=== PATIENT | male | born 1945 | race Caucasian/White ===

== ENCOUNTER 2016-08-17 14:19 | Emergency (ER) | payer OTHER ==
[~2016-08-17] VITALS: Ht 170.2 cm; Wt 64.9 kg
[~2016-08-17 14:19] MED LIST: ADVIN25/60 INH; ALBU1AER9 INH; AMOX500C3 PO; ASPI81TA28 PO; EPP3/2 IM; LOSA100T65 PO
[2016-08-17 14:31] VITALS: TEMP 36.8; Ht 170.2 cm; Wt 64.9 kg
[2016-08-17] MEDS ORDERED: SODIUM CHLORIDE 0.9% 1000ML 500 ML IV STA (14:40)
--- NOTE | 2016-08-17 14:48 | EMERGENCY ROOM VISIT NOTE ---
History Report prepared by Chrystal: Suzanna Stearns Under the Supervision of: Dr. José Lin M.D. First contact with patient: 14:35 Chief Complaint: COUGH Stated Complaint: UPPER RIGHT CHEST PAIN,COUGHING UP BLOOD Nursing Triage Summary: pt c/o productive cough for a couple weaks, today noticed there was a streak of blood in it. Took Doxy and Prenisone beginning 07/24/16 for Pneumonia. Pain in right side of chest, when he coughs or bends over, that began yesterday. History of Present Illness The patient is a 71 year old male who presents to the Emergency Room with complaints of a persistent productive cough that began one month ago. He currently rates his discomfort as a 9/10 in severity. The patient notes that he has noticed hemoptysis today. Per records, the patient was placed on 10 days of Doxycycline and 5 days of Prednisone on 08/08. The patient states that he has been to his PCP three times for his symptoms. He states that he has had right sided chest pain with his cough. The patient additionally associates shortness of breath. He denies any fever. The patient denies any current antibiotic usage. He notes a history of COPD, noting that he has inhalers at home. The patient denies any history of blood clots. He denies using supplemental oxygen at home. Source of History: patient Onset: one month ago Position: other (global) Symptom Intensity: 9/10 Quality: other (cough) Timing: other (persistent) Associated Symptoms: + SOB, + chest pain, No fevers Review of Systems See HPI for pertinent positives & negatives. A total of 10 systems reviewed and were otherwise negative. Past Medical & Surgical Medical Problems: (1) Bronchitis (2) COPD (chronic obstructive pulmonary disease) (3) HTN (hypertension) (4) Hyperlipidemia Surgical Problems: (1) Hx of cholecystectomy Family History FHx: gallbladder disease Social History Smoking Status: Current Every Day Smoker Alcohol Use: none Drug Use: none Marital Status: Occupation Status: retired Current/Historical Medications Scheduled Albuterol Hfa (Ventolin Hfa), 2-4 PUFFS INH Q6H Aspirin (Aspirin), 1 TAB PO DAILY Epinephrine (Epipen), 0.3 MG IM UD Fluticasone Propionate (Nasal) (Flonase Allergy Relief), 2 SPRAYS RUDY DAILY Hydrochlorothiazide (Hydrochlorothiazide), 1 TAB PO DAILY Levofloxacin (Levaquin), 750 MG PO QD@16 Losartan Potassium (Cozaar), 100 MG PO DAILY Tiotropium [place] (Spiriva Handihaler), 1 CAP INH DAILY Scheduled PRN Meloxicam (Meloxicam), 1 TAB PO DAILY PRN for Pain Allergies Coded Allergies: Cefuroxime (Verified Allergy, Intermediate, rash, 08/17/16) BEE STING (Verified Allergy, Unknown, ANAPHYLAXIS, 08/17/16) Physical Exam Vital Signs Date Time Temp Pulse Resp B/P Pulse Ox O2 Delivery O2 Flow Rate FiO2 08/17/16 17:43 100 20 135/82 92 08/17/16 16:37 97 16 133/90 93 Room Air 08/17/16 15:46 98 08/17/16 15:27 100 18 117/81 92 Room Air 08/17/16 15:22 92 Room Air 08/17/16 14:31 36.8 113 18 122/70 93 Room Air 08/17/16 14:31 93 Room Air Physical Exam GENERAL: Patient is in no acute distress. HEENT: No acute trauma, normocephalic atraumatic, mucous membranes moist, no nasal congestion, no scleral icterus. NECK: No stridor, no adenopathy, no meningismus, trachea is midline. LUNG: Decreased breath sounds bilaterally, but equal, no respiratory distress, no wheezes or rhonchi. HEART: Tachycardic with a regular rhythm, no murmurs. ABDOMEN: Soft, nontender, bowel sounds positive, no hernias, no peritonitis. EXTREMITIES: No cyanosis or edema, full range of motion of all the joints without pain or difficulty, no signs for acute trauma. NEUROLOGIC: Oriented x 3, no acute motor or sensory deficits, no focal weakness. SKIN: No rash, no jaundice, no diaphoresis. Medical Decision & Procedures ER Provider Diagnostic Interpretation: X ray results and stated below per my interpretation and radiologist interpretation. Other radiology results and stated below per my review and radiologist interpretation: CHEST CTA for PULMONARY ARTERIES CT DOSE: 424.49 mGycm HISTORY: Chest pain dyspnea TECHNIQUE: Multiaxial CT images of the chest were performed following the intravenous administration of contrast to evaluate the pulmonary arteries. Maximal intensity projection images were also obtained. COMPARISON STUDY: None. FINDINGS: Emphysematous change with bleb formation of the pulmonary apices. Small parenchymal infiltrate right base. Trace pleural fluid right base. Minimal parenchymal infiltrate right middle lobe. Pulmonary vasculature enhances appropriately. There are no significant filling defects. IMPRESSION: No evidence for pulmonary embolus. Emphysematous change. Small parenchymal infiltrate right middle lobe and right middle lobe. Trace pleural fluid right base. Electronically signed by: Carlos Cruz M.D. 08/17/2016 4:30 PM Dictated Date/Time: 08/17/2016 4:27 PM CHEST ONE VIEW PORTABLE CLINICAL HISTORY: Respiratory distress. Cough. COMPARISON STUDY: 02/14/2014 FINDINGS: The chest has an emphysematous configuration. The heart is normal in size. There is no failure. There is a new airspace opacities the right medial lung base. Given the history of cough this may represent a pneumonitis. Imaging subsequent to treatment is recommended in follow-up. No pleural effusions are visualized.[ IMPRESSION: New nonspecific airspace opacity at the right medial lung base. Given the history of cough this could represent a pneumonitis. Pulmonary hemorrhage could appear similar given history of hemoptysis. Clinical and radiographic follow-up is recommended. Electronically signed by: Dusty Cole M.D. 08/17/2016 3:08 PM Dictated Date/Time: 08/17/2016 3:06 PM Laboratory Results 08/17/16 14:51 Red Blood Count 5.04, Mean Corpuscular Volume 86.5, Mean Corpuscular Hemoglobin 29.4, Mean Corpuscular Hemoglobin Concent 33.9, Mean Platelet Volume 9.9, Neutrophils (%) (Auto) 72.7, Lymphocytes (%) (Auto) 14.9, Monocytes (%) (Auto) 11.0, Eosinophils (%) (Auto) 0.8, Basophils (%) (Auto) 0.2, Neutrophils # (Auto ) 8.69, Lymphocytes # (Auto) 1.78, Monocytes # (Auto) 1.32, Eosinophils # (Auto ) 0.09, Basophils # (Auto) 0.02 08/17/16 14:51 Test 08/17/16 14:51 White Blood Count 11.95 K/uL (4.8-10.8) Red Blood Count 5.04 M/uL (4.7-6.1) Hemoglobin 14.8 g/dL (14.0-18.0) Hematocrit 43.6 % (42-52) Mean Corpuscular Volume 86.5 fL (80-100) Mean Corpuscular Hemoglobin 29.4 pg (25-34) Mean Corpuscular Hemoglobin Concent 33.9 g/dl (32-36) Platelet Count 245 K/uL (130-400) Mean Platelet Volume 9.9 fL (7.4-10.4) Neutrophils (%) (Auto) 72.7 % Lymphocytes (%) (Auto) 14.9 % Monocytes (%) (Auto) 11.0 % Eosinophils (%) (Auto) 0.8 % Basophils (%) (Auto) 0.2 % Neutrophils # (Auto) 8.69 K/uL (1.4-6.5) Lymphocytes # (Auto) 1.78 K/uL (1.2-3.4) Monocytes # (Auto) 1.32 K/uL (0.11-0.59) Eosinophils # (Auto) 0.09 K/uL (0-0.5) Basophils # (Auto) 0.02 K/uL (0-0.2) RDW Standard Deviation 50.8 fL (36.4-46.3) RDW Coefficient of Variation 16.3 % (11.5-14.5) Immature Granulocyte % (Auto) 0.4 % Immature Granulocyte # (Auto) 0.05 K/uL (0.00-0.02) Anion Gap 7.0 mmol/L (3-11) Est Creatinine Clear Calc Drug Dose 58.2 ml/min Estimated GFR () 79.0 Estimated GFR (Non- 68.1 BUN/Creatinine Ratio 10.4 (10-20) Calcium Level 9.0 mg/dl (8.5-10.1) Troponin I < 0.015 ng/ml (0-0.045) Laboratory results reviewed by me. Medications Administered Medications (Trade) Dose Ordered Sig/Jayashree Route Start Time Stop Time Status Last Admin Dose Admin Sodium Chloride (Nss 1000ml) 500 ml @ 999 mls/hr Q31M STAT IV 08/17/16 14:40 08/17/16 15:10 DC 08/17/16 15:27 999 MLS/HR Levofloxacin (Levaquin Tab) 750 mg NOW STAT PO 08/17/16 17:23 08/17/16 17:24 DC 08/17/16 17:38 750 MG ECG Indication: other (cough) Rate (beats per minute): 100 Rhythm: normal sinus Findings: no acute ischemic change, no ectopy ED Course 1438: The patient was evaluated in room C11B. A complete history and physical exam was performed. 1440: Ordered Sodium Chloride 500 ml @ 999 mls/hr IV. 1715: I reevaluated the patient and he is resting comfortably. I discussed the exam findings with him and I discussed the treatment plan. He verbalized complete understanding and agreement. He is ready to go home. 1723: Ordered Levofloxacin 750 mg PO. Medical Decision The patient is a 71 year old male who presents to the ED with complaints of productive cough. Differential diagnoses considered include bronchitis or pneumonia, PE, malignancy, exacerbation of COPD, anemia, cardiac ischemia, CHF, failed outpatient treatment. There is a mild leukocytosis which could be consistent with infection. Had no concerning anemia. No significant electrolyte abnormality or kidney failure. Chest film shows a possible right lower lung pneumonia. EKG shows a sinus rhythm, no acute ischemia. His cardiac enzyme testing times one is not consistent with acute cardiac injury. Chest CT shows no PE, there was no mass. A small pneumonia on the right was noted. The patient received IV saline, he was given oral Levaquin. The patient is not hypoxic or toxic. He does not want to stay in the hospital. He is being discharged on Levaquin for the pneumonia. He will see his doctor in the outpatient office next week. The patient was encouraged to return to this ER for worsening breathing or lack of improvement. Impression Primary Impression: Pneumonia Additional Impression: Right-sided chest pain Scribe Attestation The scribe's documentation has been prepared under my direction and personally reviewed by me in its entirety. I confirm that the note above accurately reflects all work, treatment, procedures, and medical decision making performed by me. Departure Information Dispostion Home / Self-Care Prescriptions Levofloxacin (Levaquin) 750 Mg Tab 750 MG PO QD@16, #5 TAB Prov: José Lin M.D. 08/17/16 Referrals Chavez Francois MD (PCP) Forms HOME CARE DOCUMENTATION FORM, IMPORTANT VISIT INFORMATION Patient Instructions My [facility] [address] Additional Instructions continue the inhalers--frequent albuterol use while have this illness levaquin daily for 5 more days rest fluids return for worsening breathing or symptoms see rocael zavala this week for a recheck Problem Qualifiers
[2016-08-17 15:05] LABS: BASO % 0.2 %; BASO ABS # 0.02 K/uL (0-0.2); COMPLETE YES; EOS % 0.8 %; HEMATOCRIT 43.6 % (42-52); IG% 0.4 %; LYMPH % 14.9 %; LYMPH ABS # 1.78 K/uL (1.2-3.4); MEAN CELL VOLUME 86.5 fL (80-100); MEAN CORPUSCULAR HEMOGLOBIN 29.4 pg (25-34); MEAN CORPUSCULAR HGB CONC 33.9 g/dl (32-36); MEAN PLATELET VOLUME 9.9 fL (7.4-10.4); NEUT % 72.7 %; PLATELET COUNT 245 K/uL (130-400); RED BLOOD COUNT 5.04 M/uL (4.7-6.1); WHITE BLOOD COUNT 11.95 K/uL (4.8-10.8)
--- NOTE | 2016-08-17 15:10 | DIAGNOSTIC IMAGING REPORT ---
CHEST ONE VIEW PORTABLE CLINICAL HISTORY: Respiratory distress. Cough. COMPARISON STUDY: 02/14/2014 FINDINGS: The chest has an emphysematous configuration. The heart is normal in size. There is no failure. There is a new airspace opacities the right medial lung base. Given the history of cough this may represent a pneumonitis. Imaging subsequent to treatment is recommended in follow-up. No pleural effusions are visualized.[ IMPRESSION: New nonspecific airspace opacity at the right medial lung base. Given the history of cough this could represent a pneumonitis. Pulmonary hemorrhage could appear similar given history of hemoptysis. Clinical and radiographic follow-up is recommended. Electronically signed by: Dusty Cole M.D. 08/17/2016 3:08 PM Dictated Date/Time: 08/17/2016 3:06 PM
[2016-08-17] MEDS ORDERED: LOSA100T65 PO (15:14)
[2016-08-17] MEDS ORDERED: SPRIN/30 INH (15:14)
[2016-08-17] MEDS ORDERED: VNTHFA/IN INH (15:14)
[2016-08-17] MEDS ORDERED: FLUT0.15 NAE (15:14)
[2016-08-17] MEDS ORDERED: MBC75 PO (15:14)
[2016-08-17] MEDS ORDERED: HYDR12.55 PO (15:14)
[2016-08-17] MEDS ORDERED: EPP3/2 IM (15:16)
[2016-08-17] MEDS ORDERED: ASPI81CH2 PO (15:16)
[2016-08-17 15:22] VITALS: O2SAT 92
[2016-08-17] MEDS ORDERED: OPTIRAY 320 IV PRN (15:30)
[2016-08-17 15:32] LABS: BLOOD UREA NITROGEN 11 mg/dl (7-18); BUN/CREATININE RATIO 10.4 (10-20); CARBON DIOXIDE 29 mmol/L (21-32); CHLORIDE 103 mmol/L (98-107); GLUCOSE 114 mg/dl (70-99); POTASSIUM 3.3 mmol/L (3.5-5.1); SODIUM 139 mmol/L (136-145)
--- NOTE | 2016-08-17 16:32 | DIAGNOSTIC IMAGING REPORT ---
CHEST CTA for PULMONARY ARTERIES CT DOSE: 424.49 mGycm HISTORY: Chest pain dyspnea TECHNIQUE: Multiaxial CT images of the chest were performed following the intravenous administration of contrast to evaluate the pulmonary arteries. Maximal intensity projection images were also obtained. COMPARISON STUDY: None. FINDINGS: Emphysematous change with bleb formation of the pulmonary apices. Small parenchymal infiltrate right base. Trace pleural fluid right base. Minimal parenchymal infiltrate right middle lobe. Pulmonary vasculature enhances appropriately. There are no significant filling defects. IMPRESSION: No evidence for pulmonary embolus. Emphysematous change. Small parenchymal infiltrate right middle lobe and right middle lobe. Trace pleural fluid right base. Electronically signed by: Carlos Cruz M.D. 08/17/2016 4:30 PM Dictated Date/Time: 08/17/2016 4:27 PM
[2016-08-17] MEDS ORDERED: LEVOFLOXACIN 250 MG TAB PO STA (17:23)
[2016-08-17] MEDS ORDERED: LEVO1TAB35 PO (17:29)
[2016-08-17 17:43] VITALS: BP 135/82; PULSE 100; O2SAT 92
== END 2016-08-17 17:44 | disposition home or self-care (01) ==
LOC: C.EDB 14:20 → C.EDC 17:44
DX: J18.9 Pneumonia, unspecified organism (principal); R07.9 Chest pain, unspecified; R04.2 Hemoptysis; J44.9 Chronic obstructive pulmonary disease, unspecified; I10 Essential (primary) hypertension; E78.5 Hyperlipidemia, unspecified; Z79.82 Long term (current) use of aspirin; Z79.899 Other long term (current) drug therapy; Z87.09 Personal history of other diseases of the respiratory system; Z83.79 Family history of other diseases of the digestive system; F17.200 Nicotine dependence, unspecified, uncomplicated

== ENCOUNTER 2023-08-01 09:29 | Inpatient (IN) ==
--- NOTE | 2023-08-01 10:05 | Emergency Department Note ---
Impression & Plan Acute exacerbation of chronic obstructive pulmonary disease (COPD), Acute bronchitis, Hypoxia, Pneumonia ED Provider Note NAME: BETHANY COWAN AGE: 77 SEX: M : 1945 ARRIVES VIA: Walk-In INFORMANT: Patient, ED PROVIDER(S): Al Bass DO CHIEF COMPLAINT: Difficulty breathing HPI: The patient is a 77-year-old male who has a history of tobacco use and COPD who presented to the emergency department for an evaluation of difficulty breathing. He denies having any lower extremity swelling or chest pain. He has been using his inhaler without relief. He is noticed a productive cough or clear sputum. He denies having any fever. He denies having any abdominal pain. He has not been seen by his family doctor for the symptoms. He presented to the emergency department today because of ongoing and worsening symptoms. ROS: See above HPI for pertinent positives & negatives. A total of 10 systems reviewed and were otherwise negative. PAST MEDICAL HISTORY: See Below PAST SURGICAL HISTORY: See Below FAMILY HISTORY: See Below SOCIAL HISTORY: See Below HOME MEDICATIONS: See Below ALLERGIES: See Below VITALS: See Below PHYSICAL EXAMINATION: GENERAL: The patient is awake and alert. He is very anxious and appears to be having significant difficulty breathing. EYES: Postsurgical changes were noted to the left eye. EARS, NOSE, MOUTH AND THROAT: The nose is without any evidence of any deformity. NECK: The neck is nontender and supple. RESPIRATORY: Shallow respirations were noted. Pursed lip breathing was noted with tripoding. There was wheezing both upper lung samuels. CARDIOVASCULAR: Tachycardic and regular heart sounds were noted to auscultation. There is no definite murmur. GASTROINTESTINAL: The abdomen is soft. Abdomen is nontender. MUSCULOSKELETAL/EXTREMITIES: There is no evidence of gross deformity full range of motion is noted in the hips and shoulders. SKIN: There is no obvious evidence of any rash. There are no petechiae, pallor or cyanosis noted. NEUROLOGIC: Patient is awake alert and oriented x3 MEDICAL DECISION MAKING: The patient is a 77-year-old male who presented to the emergency department for an evaluation of difficulty breathing. The the patient's history and physical exam appear to be consistent with COPD exacerbation. He was treated with bronchodilator therapy as well as IV fluids IV antibiotics and IV steroids in the emergency department. The patient was reevaluated multiple times. He did receive an hour-long DuoNeb. The patient was significantly improved but still had an oxygen requirement. I discussed his condition with the on-call [facility]. They have agreed to evaluate the patient in the emergency department for further management and disposition. Triage Nursing notes reviewed. Prior medical records reviewed Vital Signs: reviewed and remarkable for hypoxia and tachypnea. Differential diagnosis: Reactive airway disease, pneumonia, pneumothorax, COPD, CHF, infections, cardiac ischemia, pulmonary embolism, musculoskeletal, gastrointestinal, as well as other pathologies. ER treatment provided: See below Diagnostics interpreted by me: ECG: EKG was obtained in the emergency department. My interpretation is sinus tachycardia at 116 bpm. There is no ectopy. There is no acute ST segment abnormalities noted. No previous tracing was seen. Cardiac Monitoring: An order was placed for continuous cardiac monitoring. The monitor shows a rate of 97 bpm with sinus rhythm. Laboratory studies: As stated above and show below. Imaging studies: See below. Radiographic imaging was reviewed by myself Consultation(s): I discussed this case with Samia who is on-call for the [facility] group. ED COURSE: Procedures: none Critical Care: I have personally spent greater than 45 minutes of critical care time in the direct management of this patient. This includes bedside care, interpretation of diagnostic studies, and testing, discussion with consultants, patient, and family members, and other required patient management activities. This 45 minutes is in excess of all separately billable procedures. Past Med/Surg History Medical History Right inguinal hernia History of COVID-19 03/26/22 (Adriel PCR) Symptoms at time: SOB, rx paxlovid > symptoms resolved Kidney stones hx Migraine hx Chronic obstructive pulmonary disease Chronic cough Hyperlipidemia Hypertension Anemia Surgical History Hx of inguinal hernia repair LT-2021 History of ERCP Gallstone extraction History of cystoscopy WITH REMOVAL KIDNEY STONE History of colonoscopy Family History Other No known health problems Social History Smoking Status: Former smoker Cigarettes Per Day: 5; Second Hand Exposure: No; Do You Dip or Chew Tobacco: No; Hx Alcohol Use: Yes (hx-not since 1990) Hx Substance Use: Yes Preferred Language: Upper Sorbian Communication Ability: Effective 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63 mg inhalation BID 12/29/21 08/01/23 solution for nebulization albuterol sulfate 90 mcg/actuation 2 puff inhalation QID PRN Wheezing 12/29/21 08/01/23 aerosol inhaler atorvastatin 40 mg tablet (Lipitor) 40 mg PO QAM 12/29/21 08/01/23 epinephrine 0.1 mg/0.1 mL 1 mg subcut UD PRN Allergic 12/29/21 08/01/23 injection, auto-injector Reaction fluticasone propionate 50 2 spray intranasal QA 12/29/21 08/01/23 mcg/actuation nasal spray,suspension hydrochlorothiazide 25 mg tablet 25 mg PO QAM 12/29/21 08/01/23 losartan 50 mg tablet 50 mg PO QAM 12/29/21 08/01/23 fluticasone fur. 100 mcg-umeclid 1 inh inhalation QAM 08/01/23 08/01/23 62.5 mcg-vilant 25 mcg inhalat.powder (Trelegy Ellipta) Results & Data (ED) Vital Signs Vital Signs - 24 hr 08/01/23 09:39 08/01/23 09:39 08/01/23 10:13 Temperature 37.1 C Temperature Source Temporal Artery Scan Pulse Rate 116 H 112 H Pulse Rate [Apical] Pulse Rate from SpO2 Sensor Respiratory Rate 20 Respiratory Effort / Characteristics Non-Labored Respiratory Depth Normal Blood Pressure 155/83 H Blood Pressure [Left Arm] Blood Pressure Mean 107 Blood Pressure Mean [Left Arm] Pulse Oximetry 90 Oxygen Delivery Method Room Air Room Air Oxygen Flow Rate Sepsis Recent Fever Within 48 Hours No Sepsis New/Unexplained Change in Mental Status No Sepsis Action Taken by Nursing No Action Required 08/01/23 10:15 08/01/23 10:19 08/01/23 10:20 Temperature Temperature Source Pulse Rate 109 H Pulse Rate [Apical] 108 H Pulse Rate from SpO2 Sensor 108 H Respiratory Rate 26 H 16 Respiratory Effort / Characteristics Non-Labored Spontaneous Respiratory Depth Normal Blood Pressure 140/96 Blood Pressure [Left Arm] 140/96 Blood Pressure Mean 110 Blood Pressure Mean [Left Arm] 110 Pulse Oximetry 99 86 L 99 Oxygen Delivery Method Aerosol Mask Room Air Nasal Cannula Oxygen Flow Rate Sepsis Recent Fever Within 48 Hours Sepsis New/Unexplained Change in Mental Status Sepsis Action Taken by Nursing 08/01/23 10:30 08/01/23 11:00 08/01/23 11:30 Temperature Temperature Source Pulse Rate 107 H 108 H 107 H Pulse Rate [Apical] Pulse Rate from SpO2 Sensor 107 H 109 H 108 H Respiratory Rate 21 26 H 29 H Respiratory Effort / Characteristics Respiratory Depth Blood Pressure 147/91 H 153/77 H 143/81 H Blood Pressure [Left Arm] Blood Pressure Mean 109 102 101 Blood Pressure Mean [Left Arm] Pulse Oximetry 100 100 94 Oxygen Delivery Method Aerosol Mask Nasal Cannula Nasal Cannula Oxygen Flow Rate 2 2 Sepsis Recent Fever Within 48 Hours Sepsis New/Unexplained Change in Mental Status Sepsis Action Taken by Nursing 08/01/23 11:45 08/01/23 12:00 08/01/23 12:15 Temperature Temperature Source Pulse Rate 104 H 100 H 97 H Pulse Rate [Apical] Pulse Rate from SpO2 Sensor 102 H 100 H 98 H Respiratory Rate 32 H 31 H 30 H Respiratory Effort / Characteristics Respiratory Depth Blood Pressure 116/76 132/88 130/69 Blood Pressure [Left Arm] Blood Pressure Mean 89 102 89 Blood Pressure Mean [Left Arm] Pulse Oximetry 93 93 93 Oxygen Delivery Method Nasal Cannula Room Air Room Air Oxygen Flow Rate 2 2 2 Sepsis Recent Fever Within 48 Hours Sepsis New/Unexplained Change in Mental Status Sepsis Action Taken by Correction Medications Current Medication List: was personally reviewed by me Laboratory Data Attestation: I reviewed the patient's lab results. 08/01/23 09:50 08/01/23 09:50 Lab Results 08/01/23 08/01/23 Range/Units 09:50 10:32 WBC 18.90 H (4.8-10.8) K/ul RBC 5.12 (4.70-6.10) M/uL Hgb 14.4 (14.0-18.0) g/dl Hct 43.8 (42.0-52.0) % MCV 85.5 (80.0-100.0) fL MCH 28.1 (25.0-34.0) pg MCHC 32.9 (32.0-36.0) g/dL RDW Std Deviation 48.6 H (36.4-46.3) fL RDW Coeff of Odalys 15.6 H (11.5-14.5) % Plt Count 339 (130-400) K/uL MPV 10.6 (9.4-12.4) fL Immature Gran % (Auto) 0.5 % Neut % (Auto) 86.3 % Lymph % (Auto) 4.6 % Zapata % (Auto) 7.9 % Eos % (Auto) 0.4 % Baso % (Auto) 0.3 % Neut # (Auto) 16.31 H (1.40-6.50) K/uL Lymph # (Auto) 0.87 L (1.20-3.40) K/uL Zapata # (Auto) 1.49 H (0.11-0.59) K/uL Eos # (Auto) 0.08 (0.00-0.50) K/uL Baso # (Auto) 0.05 (0.00-0.20) K/uL Immature Gran # (Auto) 0.10 (0.01-0.20) K/uL PT 12.3 H (9.0-12.0) Seconds INR 1.1 (0.9-1.1) APTT 39 H (21-31) Seconds PTT Ratio 1.4 VBG pH 7.34 L (7.36-7.41) VBG pCO2 56 H (38-50) mmHg VBG pO2 25 mmHg VBG HCO3 30 mmol/L VBG O2 Saturation < 60.0 % VBG Base Excess 3.0 mEq/L Sodium 136 (136-145) mmol/L Potassium 4.1 (3.5-5.1) mmol/L Chloride 100 (98-107) mmol/L Carbon Dioxide 28 (21-32) mmol/L Anion Gap 8 (3-11) BUN 18 (6-23) mg/dl Creatinine 0.92 (0.6-1.4) mg/dl Est Cr Clr Drug Dosing 44.5 ml/min Est GFR ( Amer) 94.0 ml/min Est GFR (Non-Af Amer) 81.1 ml/min BUN/Creatinine Ratio 19.6 (10-20) Glucose 129 H (70-99(Fasting)) mg/dl Lactate 1.7 (0.4-2.0) mmol/L Calcium 9.6 (8.6-10.3) mg/dl Total Bilirubin 1.0 (0.2-1.0) mg/dl AST 20 (13-39) U/L ALT 21 (7-52) U/L Alkaline Phosphatase 85 (34-104) U/L Troponin I High Sens 11.7 (0-20) pg/ml Total Protein 7.6 (6.0-8.3) gm/dl Albumin 4.2 (3.4-5.0) gm/dl Globulin 3.4 (2.5-4.0) gm/dl Albumin/Globulin Ratio 1.2 (0.9-2) Procalcitonin 0.08 (0-0.5) ng/ml Administered Medications Benzonatate (Benzonatate 100 Mg Capsule) 100 mg PO TID [facility] Stop: 08/31/23 13:59 Last Admin: 08/01/23 14:35 Dose: 100 mg Documented By: Methylprednisolone 40 mg/ (Syringe) 0.64 mls @ 1.5 mls/min IV Q8H [facility] Stop: 08/31/23 13:19 Last Admin: 08/01/23 14:34 Dose: 1.5 mls/min Documented By: Discontinued Medications Albuterol (Albut/Ipratrop 3mg/0.5mg Neb 3 Ml Vial) 12 ml NEB ONE ONE; Protocol Stop: 08/01/23 10:01 Last Admin: 08/01/23 10:06 Dose: 12 ml Documented By: Dexamethasone Sodium Phosphate (DexamethasonePf 10 Mg/Ml Vial) 10 mg IV NOW ONE Stop: 08/01/23 10:01 Last Admin: 08/01/23 10:06 Dose: 10 mg Documented By: Sodium Chloride (Nss) 1,000 mls @ 999 mls/hr IV .Q1H1M ONE Stop: 08/01/23 11:11 Last Infusion: 08/01/23 11:19 Dose: Infused Documented By: Admin: 08/01/23 10:18 Dose: 999 mls/hr Documented By: YURIY Levofloxacin/Dextrose (Levaquin/D5w) 750 mg in 150 mls @ 100 mls/hr IV NOW STA Stop: 08/01/23 12:28 Last Infusion: 08/01/23 12:42 Dose: Infused Documented By: Admin: 08/01/23 11:12 Dose: 100 mls/hr Documented By: YURIY Ioversol (Optiray 320 100ml) 93 ml IV ONCE ONE Stop: 08/01/23 14:02 Last Admin: 08/01/23 14:01 Dose: 93 ml Documented By: ZHANNA Imaging Data Attestation: I personally reviewed and interpreted this imaging study as follows: My Impression: 1 view chest x-ray was obtained in the emergency department. My interpretation is hyperinflation with COPD, final report below. Radiologist's Impression: Chest X-Ray 08/01/23 09:42 SINGLE VIEW CHEST CLINICAL HISTORY: Atypical chest pain. Dyspnea FINDINGS: 2 AP, portable, upright chest radiographs are compared to chest x-ray and chest CT dated 08/17/2016. The cardiomediastinal silhouette is unremarkable noting atherosclerotic calcification of the thoracic aorta. There is asymmetric fullness of the right hilum as compared to the left. Advanced emphysema and chronic interstitial thickening is similar to previous. There is patchy airspace consolidation in the right upper lobe. No large pleural effusion or pneumothorax is seen. The skeletal structures are osteopenic. The bony thorax is grossly intact. Cholecystectomy clips are seen in the right upper quadrant. IMPRESSION: 1. Advanced emphysema. 2. Patchy airspace consolidation in the right upper lobe likely represents pneumonia. Clinical correlation will be required and radiographic follow-up to resolution is recommended. 3. There is asymmetric fullness of the right hilum as compared to left. This may be related to pulmonary artery hypertension or lymphadenopathy. Correlation with a contrast-enhanced chest CT is recommended to exclude an underlying hilar neoplasm. ACT 112: Negative or not required by law. Electronically signed by: José Peters M.D. 08/01/2023 10:26 AM Discharge Plan Visit Data Chief Complaint: Shortness of Breath/Dyspnea Stated Complaint: TROUBLE BREATHING, BACK PAINS ED Provider: Al Bass Discharge Problem: Acute exacerbation of chronic obstructive pulmonary disease (COPD), Acute bronchitis, Hypoxia, Pneumonia Patient Disposition: Being Evaluated by Hospitalist Discharge Instructions Interventions: ED Discharge Assessment Last Done: 08/01/23 13:20 Discharge Problem: Acute bronchitis Qualifiers: Bronchitis organism: unspecified organism Qualified Code(s): J20.9 - Acute bronchitis, unspecified Pneumonia Qualifiers: Pneumonia type: due to unspecified organism Laterality: unspecified laterality Lung location: unspecified part of lung Qualified Code(s): J18.9 - Pneumonia, unspecified organism
[2023-08-01] MEDS: dexAMETHasone**PF** 10 MG/ML VIAL IV ONE (10:06)
[2023-08-01] MEDS: ALBUT/IPRATROP 3MG/0.5MG NEB 3 ML VIAL NEB ONE (10:06)
[2023-08-01] MEDS: SODIUM CHLORIDE 0.9% 1,000 ML IV ONE (10:18)
[2023-08-01 10:21] LABS: Basophils # (auto) 0.05 K/uL (0.00-0.20); Basophils % (auto) 0.3 %; Eosinophils # (auto) 0.08 K/uL (0.00-0.50); Eosinophils % (auto) 0.4 %; Hematocrit (blood only) 43.8 % (42.0-52.0); Hemoglobin 14.4 g/dl (14.0-18.0); Immature Granulocytes % (auto) 0.5 %; Lymphocytes # (auto) 0.87 K/uL (1.20-3.40); Lymphocytes % (auto) 4.6 %; Mean Corpuscular Hemoglobin 28.1 pg (25.0-34.0); Mean Corpuscular Hgb Conc 32.9 g/dL (32.0-36.0); Mean Corpuscular Volume 85.5 fL (80.0-100.0); Mean Platelet Volume 10.6 fL (9.4-12.4); Monocytes # (auto) 1.49 K/uL (0.11-0.59); Monocytes % (auto) 7.9 %; Neutrophils # (auto) 16.31 K/uL (1.40-6.50); Neutrophils % (auto) 86.3 %; Platelet Count 339 K/uL (130-400); RDW Coefficient of Variation 15.6 % (11.5-14.5); RDW Standard Deviation 48.6 fL (36.4-46.3); Red Blood Count 5.12 M/uL (4.70-6.10)
--- NOTE | 2023-08-01 10:27 | XRay Report ---
SINGLE VIEW CHEST CLINICAL HISTORY: Atypical chest pain. Dyspnea FINDINGS: 2 AP, portable, upright chest radiographs are compared to chest x-ray and chest CT dated . The cardiomediastinal silhouette is unremarkable noting atherosclerotic calcification of the thoracic aorta. There is asymmetric fullness of the right hilum as compared to the left. Advanced em physema and chronic interstitial thickening is similar to previous. There is patchy airspace consolid ation in the right upper lobe. No large pleural effusion or pneumothorax is seen. The skeletal struct ures are osteopenic. The bony thorax is grossly intact. Cholecystectomy clips are seen in the right u pper quadrant. IMPRESSION: 1. Advanced emphysema. 2. Patchy airspace consolidation in the right upper lobe likely represents pneumonia. Clinical correl ation will be required and radiographic follow-up to resolution is recommended. 3. There is asymmetric fullness of the right hilum as compared to left. This may be related to pulmon ted artery hypertension or lymphadenopathy. Correlation with a contrast-enhanced chest CT is recommen ded to exclude an underlying hilar neoplasm. ACT 112: Negative or not required by law. Electronically signed by: José Peters M.D. 08/01/2023 10:26 AM
[2023-08-01 10:36] LABS: Albumin Globulin Ratio 1.2 (0.9-2); Albumin Level 4.2 gm/dl (3.4-5.0); BUN Creatinine Ratio 19.6 (10-20); Calcium 9.6 mg/dl (8.6-10.3); Creatinine Clr Calc Pharmacy 44.5 ml/min; Est GFR (Non-African American) 81.1 ml/min; Globulin 3.4 gm/dl (2.5-4.0); Potassium 4.1 mmol/L (3.5-5.1); Total Protein 7.6 gm/dl (6.0-8.3)
[2023-08-01 10:39] LABS: Troponin I High Sensitivity 11.7 pg/ml (0-20)
[2023-08-01 10:46] LABS: Influenza A virus by PCR Negative (Neg); Influenza B virus by PCR Negative (Neg); RSV by PCR Negative (Neg); SARS CoV2 RNA(COVID-19) Ceph NEGATIVE (Negative)
[2023-08-01 10:47] LABS: INR 1.1 (0.9-1.1); Partial Thromboplastin Ratio 1.4; Partial Thromboplastin Time 39 Seconds (21-31); Prothrombin Time 12.3 Seconds (9.0-12.0)
[2023-08-01 10:52] LABS: HCO3 VBG 30 mmol/L; Oxygen Saturation VBG < 60.0 %; PCO2 VBG 56 mmHg (38-50); PO2 VBG 25 mmHg; pH VBG 7.34 (7.36-7.41)
[2023-08-01] MEDS: levoFLOXacin/D5W 750 MG/150 ML BAG IV STA (11:12)
--- NOTE | 2023-08-01 12:22 | History & Physical Report ---
Date of Service August 01, 2023 Assessment & Plan (1) Acute exacerbation of chronic obstructive pulmonary disease (COPD): (2) Pneumonia: (3) Bullous emphysema: (4) Chronic rhinitis: (5) HTN (hypertension): (6) Hyperlipidemia: Plan: COPD exacerbation Bullous emphysema Pneumonia -Admit to med tele -Continue patient on IV steroid, administered dexamethasone 10 mg IV in the ER, will continue solumedrol 40 mg Q8H -Started on Levaquin, continue with hx of allergy to cefuroxime -Slight respiratory acidosis with pH7.34, pCO2 56 -Does not wear chronic supplemental O2 at baseline, currently o2 sats 92-94% on 2 L -WBC of 18,000 with a left shift -COVID, flu, RSV are negative, did not complete the full bio fire panel, will treat supportively -Check CT chest w/wo -Check BNP, can consider echo pending results, does not appear volume overloaded, given 1 L NSS in the ER, no further fluids. 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 Please see attending documentation for corrections and/or additions. History of Present Illness Chief Complaint: Shortness of breath and dyspnea on exertion Primary Care Provider: Chavez Francois MD This is a 77-year-old male with PMHx of chronic tobacco use, COPD, bronchiolitis interstitial lung disease, pulmonary cachexia, bullous emphysema, HTN and HLD who presents to the hospital with acute worsening shortness of breath and dyspnea on exertion. Patient states that he was out with friends on Saturday night, with many people, and that she developed symptoms of cough which is nonproductive and shortness of breath on Saturday afternoon. He denies any fevers, chills or sweats. He has been tolerating p.o. intake without any difficulty. States that he took some mkgk-ock-wiakylo flu medication but that he had diarrhea 1 time but has since resolved after he took that 1 dose of cold medicine. He has been using albuterol inhalers daily and albuterol nebulizer 3-4 times/day since onset of his cold symptoms. He reports that it is difficult to take a deep breath, some pain substernally whenever he does so. He does not wear any supplemental O2 or CPAP at night. Denies any nausea, vomiting abdominal complaints, palpitations or chest pain. He continues to smoke half pack per day, started when he was age 16 and at some point in his life was up to 2 packs daily. Denies any other illicit drug use, no marijuana, no alcohol use. He notes that he weighs 106 pounds, states that he is eating multiple meals per day and eating things like cakes, cookies before he goes to bed but continues to lose weight. His PCP has started workup to find the reason for such. He is also drinking 1 Ensure daily. Allergies Allergy/AdvReac Type Severity Reaction Status Date / Time cefuroxime Allergy Intermediate rash Verified 04/16/22 12:06 bee venom protein (honey bee) Allergy Unknown ANAPHYLAXIS Verified 04/16/22 12:06 Home Medications Medication Instructions Recorded Confirmed Type acetaminophen 500 mg tablet 1,000 mg PO Q6H PRN Pain 12/29/21 08/01/23 History albuterol sulfate 0.63 mg/3 mL 0.63 mg inhalation BID 12/29/21 08/01/23 History solution for nebulization albuterol sulfate 90 mcg/actuation 2 puff inhalation QID PRN Wheezing 12/29/21 08/01/23 History aerosol inhaler atorvastatin 40 mg tablet (Lipitor) 40 mg PO QAM 12/29/21 08/01/23 History epinephrine 0.1 mg/0.1 mL 1 mg subcut UD PRN Allergic 12/29/21 08/01/23 History injection, auto-injector Reaction fluticasone propionate 50 2 spray intranasal QAM 12/29/21 08/01/23 History mcg/actuation nasal spray,suspension hydrochlorothiazide 25 mg tablet 25 mg PO QAM 12/29/21 08/01/23 History losartan 50 mg tablet 50 mg PO QAM 12/29/21 08/01/23 History fluticasone fur. 100 mcg-umeclid 1 inh inhalation QAM 08/01/23 08/01/23 History 62.5 mcg-vilant 25 mcg inhalat.powder (Trelegy Ellipta) Past Med/Surg History Medical History Right inguinal hernia History of COVID-19 03/26/22 (Adriel PCR) Symptoms at time: SOB, rx paxlovid > symptoms resolved Kidney stones hx Migraine hx Chronic obstructive pulmonary disease Chronic cough Hyperlipidemia Hypertension Anemia Surgical History Hx of inguinal hernia repair LT-2021 History of ERCP Gallstone extraction History of cystoscopy WITH REMOVAL KIDNEY STONE History of colonoscopy Family History Other No known health problems Social History Smoking Status: Former smoker Cigarettes Per Day: 5; Second Hand Exposure: No; Do You Dip or Chew Tobacco: No; Hx Alcohol Use: Yes (hx-not since 1990) Hx Substance Use: Yes Preferred Language: Brazilian Communication Ability: Effective Stock Clerk Required: No Beliefs That Will Affect Care: None Current Living Situation: Alone current occupational status: retired Feels Safe at Home: Yes Assistive Devices: Denture - Upper, Denture - Lower, Glasses and Nebulizer Review of Systems Review of Systems: Constitutional: No fever, sweats or chills Eyes: No diplopia, no worsening or blurred vision ENT: normal hearing, no trouble swallowing Respiratory: As per HPI, does not wear supplemental O2 at baseline Cardiovascular: No chest pain, tightness or palpitations Abdomen: No pain, nausea, vomiting, diarrhea or constipation Musculoskeletal: No joint pain, calf pain, swelling Neurologic: No weakness, numbness/tingling, or balance problems Psychiatric: No anxiety or depression Skin: No rash or itch Physical Exam Physical Exam: General: awake, alert, no apparent distress, cachexia, thin white male Head: Normocephalic, atraumatic ENT: PERRL, EOMI in R eye, Left eye blindness, no pharyngeal exudate, mucous membranes moist Chest: +Nearly absent breath sounds throughout, faint crackles, wet cough is nonproductive, barrel chested, conversationally dyspneic Cardiac: Regular rate and rhythm, no murmur, no JVD, normal peripheral pulses, good capillary refill Abdominal: NABS x 4 quadrants, soft, nondistended, nontender to palpation, no rebound or guarding Extremities: +muscular atrophyNormal inspection, no peripheral edema or erythema, calfs nontender to palpation Psych: Normal mood and affect Neuro: AAO x 3, strength intact bilaterally and rated 5/5, no motor deficits, speech is clear, no peripheral sensory deficits Results & Data Results & Data Vital Signs (Past 12 Hours) Vital Signs Temp Pulse Pulse Resp BP BP Pulse Ox 08/01/23 10:30 107 H 21 147/91 H 100 08/01/23 10:20 108 H 16 140/96 99 08/01/23 10:19 86 L 08/01/23 10:15 109 H 26 H 140/96 99 08/01/23 10:13 112 H 08/01/23 09:39 37.1 C 116 H 20 155/83 H 90 08/01/23 09:39 O2 Del Method 08/01/23 10:30 Aerosol Mask 08/01/23 10:20 Nasal Cannula 08/01/23 10:19 Room Air 08/01/23 10:15 Aerosol Mask 08/01/23 10:13 08/01/23 09:39 Room Air 08/01/23 09:39 Room Air Laboratory Results 08/01/23 10:32 Aerobic Blood Culture - Pending Blood Anaerobic Blood Culture - Pending 08/01/23 10:15 Aerobic Blood Culture - Pending Blood Anaerobic Blood Culture - Pending 08/01/23 08/01/23 08/01/23 Unknown 10:32 09:50 WBC 18.90 H RBC 5.12 Hgb 14.4 Hct 43.8 MCV 85.5 MCH 28.1 MCHC 32.9 RDW Std Deviation 48.6 H RDW Coeff of Odalys 15.6 H Plt Count 339 MPV 10.6 Immature Gran % (Auto) 0.5 Neut % (Auto) 86.3 Lymph % (Auto) 4.6 Schuyler % (Auto) 7.9 Eos % (Auto) 0.4 Baso % (Auto) 0.3 Neut # (Auto) 16.31 H Lymph # (Auto) 0.87 L Schuyler # (Auto) 1.49 H Eos # (Auto) 0.08 Baso # (Auto) 0.05 Immature Gran # (Auto) 0.10 PT 12.3 H INR 1.1 APTT 39 H PTT Ratio 1.4 VBG pH 7.34 L VBG pCO2 56 H VBG pO2 25 VBG HCO3 30 VBG O2 Saturation < 60.0 VBG Base Excess 3.0 Sodium 136 Potassium 4.1 Chloride 100 Carbon Dioxide 28 Anion Gap 8 BUN 18 Creatinine 0.92 Est Cr Clr Drug Dosing 44.5 Est GFR ( Amer) 94.0 Est GFR (Non-Af Amer) 81.1 BUN/Creatinine Ratio 19.6 Glucose 129 H Lactate 1.7 Calcium 9.6 Total Bilirubin 1.0 AST 20 ALT 21 Alkaline Phosphatase 85 Troponin I High Sens 11.7 Total Protein 7.6 Albumin 4.2 Globulin 3.4 Albumin/Globulin Ratio 1.2 Procalcitonin 0.08 SARS-CoV-2 (PCR) NEGATIVE Influenza Type A (PCR) Negative Influenza Type B (PCR) Negative RSV (RT-PCR) Negative Diagnostic Findings Chest X-Ray 08/01/23 09:42 SINGLE VIEW CHEST CLINICAL HISTORY: Atypical chest pain. Dyspnea FINDINGS: 2 AP, portable, upright chest radiographs are compared to chest x-ray and chest CT dated 08/17/2016. The cardiomediastinal silhouette is unremarkable noting atherosclerotic calcification of the thoracic aorta. There is asymmetric fullness of the right hilum as compared to the left. Advanced emphysema and chronic interstitial thickening is similar to previous. There is patchy airspace consolidation in the right upper lobe. No large pleural effusion or pneumothorax is seen. The skeletal structures are osteopenic. The bony thorax is grossly intact. Cholecystectomy clips are seen in the right upper quadrant. IMPRESSION: 1. Advanced emphysema. 2. Patchy airspace consolidation in the right upper lobe likely represents pneumonia. Clinical correlation will be required and radiographic follow-up to resolution is recommended. 3. There is asymmetric fullness of the right hilum as compared to left. This may be related to pulmonary artery hypertension or lymphadenopathy. Correlation with a contrast-enhanced chest CT is recommended to exclude an underlying hilar neoplasm. ACT 112: Negative or not required by law. Electronically signed by: José Peters M.D. 08/01/2023 10:26 AM Code Status & VTE Plan Code Status Conditional - pt does not want intubation, he is agreeable to chest compressions Supervising Physician Co-Signing Physician Notes Patient was seen and examined independently at bedside. Chart reviewed. Case discussed with Virginia KNIGHT and agree with the documentation above. In summary, this is a 77 year old male with h/o COPD, active tobacco abuse who presented to the ED with worsening dyspnea for past 3 days. Patient went out meat shooting on Saturday and got dyspneic on Saturday which progressively got worse and he came to ED. No fever, chills but some cough. CXR with PNA. WBC 18, procal negative. RVP negative. Given cephalosporin allergy, given levaquin in ED along with dexamethasone along with nebs. He felt better since admission but still dyspneic on conversation. Mild wheezes. Continue levaquin, iv solumedrol, nebs, sputum clx, mucinex. Get CT chest to r/o underlying malignancy given his cachexia and CXR appearance. Rest as per the note above. On exam- General: Sitting in bed, conversational dyspnea, cachectic, on NC HEENT: EOMI, [place], MMM Chest: Decreased breath sounds bilaterally with mild wheezes CVS: Regular rate and rhythm, normal heart sounds, no murmur Abdomen: Soft, non tender, not distended, normal bowel sounds Neuro: Awake, alert, oriented, conversing well, non focal Extremities: No cyanosis, clubbing or edema Rest as per the note above.
[2023-08-01] MEDS ORDERED: ACETAMINOPHEN 325 MG TAB PO PRN (13:20)
[2023-08-01] MEDS: OPTIRAY 320 100ml IV ONE (14:01)
--- NOTE | 2023-08-01 14:27 | CT Scan Report ---
CT SCAN OF THE CHEST WITH IV CONTRAST CLINICAL HISTORY: Pneumonia. COMPARISON STUDY: Chest x-ray dated 08/01/2023. Chest CT dated 08/17/2016. TECHNIQUE: Following the IV administration of 93 cc of Optiray 320, CT scan of the thorax was perform ed from the thoracic inlet to the upper abdomen. Images are reviewed in the axial, sagittal, and eleanor nal planes. IV contrast was administered without complication. A dose lowering technique was utilize d adhering to the principles of ALARA. CT DOSE: 283.76 mGy.cm FINDINGS: Thyroid: Imaged portions of the thyroid gland are normal in size and attenuation. Thoracic aorta: There is atherosclerotic calcification of the thoracic aorta, which is normal in elsie renetta and demonstrates bovine variant arch anatomy. No dissection is seen. Pulmonary vasculature: The pulmonary trunk is normal in caliber. There are no filling defects identif ied in the central pulmonary vessels to indicate pulmonary embolus. Note that this examination was no t protocoled for evaluation of the pulmonary arteries. Heart: The heart is normal in size and without pericardial effusion. The coronary arteries are densel y calcified. Lungs and pleural spaces: There is advanced emphysema. Secretions are noted in the distal trachea and both mainstem bronchi. There are foci of mucus plugging/debris within the lower lobe airways, right greater than left. There is trace right pleural effusion. Patchy airspace consolidation is seen in th e right upper lobe. There are also dependent opacities at both lung bases. Scattered calcified granul omas are observed. Mediastinum: There is no mediastinal lymphadenopathy. Mayra: A prominent right hilar node measures 11 mm in short axis. This is likely reactive. No hilar ma ss lesion is seen. Axillae: There is no axillary lymphadenopathy. Upper abdomen: Cholecystectomy clips are noted. Upper pole renal cysts measure up to 3.1 cm. Skeletal structures: The skeletal structures are osteopenic. No lytic or blastic bony lesions are see n. Degenerative change is noted in the shoulders and spine. IMPRESSION: 1. Advanced emphysema. 2. There is airspace consolidation in the right upper lobe, with airspace opacities also seen at both lung bases. The appearance is typical for pneumonia/aspiration pneumonitis. Clinical correlation rhina l be required and a follow-up chest CT in 3-4 months time is recommended to document complete resolut ion. 3. Secretions/debris is seen in the distal trachea and both mainstem bronchi, as well as within the l ower lobe airways. Correlate clinically for evidence of aspiration. 4. Trace right pleural effusion. 5. No hilar lesion is identified as questioned by x-ray. 6. Additional findings as above. ACT 112: Negative or not required by law. Electronically signed by: José Peters M.D. 08/01/2023 2:26 PM
[2023-08-01] MEDS: methylPREDNISolone 40 MG in SYRINGE 0 ML IV SCH (14:34)
[2023-08-01] MEDS: BENZONATATE 100 MG CAPSULE PO SCH (14:35)
[2023-08-01] MEDS: ALBUT/IPRATROP 3MG/0.5MG NEB 3 ML VIAL NEB SCH (16:22)
--- OUTSIDE RECORDS SUMMARY | 2023-08-01 20:05 | External Medical Summary | Summary of Care ---
Author Name Unknown Organization [facility] Address [address] [place] [address] Phone [phone] Care Team Providers Care Industrial Analyst Name Role Phone Chavez Olivera MD Primary Care Provider + Reason for Visit * Reason Comments Medication Refill Encounter Details Date Type Department Care Team (Late st Contact Info) Description 07/26/2023 Refill General Internal Medicine [facility] [address] [facility] [place] [id number] Chavez Olivera MD [address] [place] [address] Hyperlipidemia Allergies Active Allergy Reactions Criticality Noted Date Comments Bee Venom 10/21/2014 Cefuroxime Axetil Rash Medium 08/12/2012 Food (See Comments) Diarrhea 08/01/2022 ALL nuts Nutritional Supplements Edema airway High 10/20/2012 documented as of this encounter (statuses as of 07/26/2023) Medications Medication Sig Dispensed Refills Start Date End Date Status Nebulizer System All-In-One Use as directed. 0 Active hydroCHLOROthiazide 25 MG Oral Tablet (Hydrodiuril)Indica tions:HTN, goal below 140/90 TAKE 1 TABLET BY MOUTH DAILY. 90 Tablet 3 03/27/2021 Active Ipratropium-Albuter ol 0.5-2.5 (3) MG/3ML Inhalation Solution (Duoneb)Indications :COPD, group D, by GOLD 2017 classification ([facility]) INHALE 3 ML (ONE VIAL) VIA NEBULIZER FOUR TIMES A DAY NEEDED 360 mL 3 09/25/2022 Active EPINEPHrine 0.3 MG/0.3ML Injection Solution Auto-injector (Autoinjector)Indic ations:Bee sting allergy For a severe reaction: Place orange end against the outer thigh, press firmly, hold in place for 10 seconds and go to the Emergency room. 2 Each 3 11/30/2022 Active Losartan Potassium 50 MG Oral Tablet (Cozaar)Indications :HTN, goal below 140/90,Benign hypertension with CKD (chronic kidney disease) stage III ([facility]) TAKE 1 TABLET BY MOUTH IN THE MORNING 100 Tablet 2 01/25/2023 Active Albuterol Sulfate HFA 108 (90 Base) MCG/ACT Inhalation Aerosol SolutionIndications :COPD, group B, by GOLD 2017 classification ([facility]) INHALE 2 PUFFS BY MOUTH EVERY 4 HOURS NEEDED FOR COUGH, SHORTNESS OF BREATH OR WHEEZING. 18 g 11 05/22/2023 5 Active Trelegy Ellipta 100-62.5-25 MCG/ACT Aerosol Powder Breath Activated (Fluticasone-Umecli dinium-Vilanterol)I ndications:COPD, group D, by GOLD 2017 classification ([facility]) Inhale 1 Puff by mouth in the morning. Rinse mouth and gargle with water after use.. 60 Each 11 06/24/2023 Active Fluticasone Propionate 50 MCG/ACT Nasal Suspension (Flonase)Indication s:COPD, moderate ([facility]),Chronic rhinitis Administer 2 Sprays into each nostril in the morning. 16 g 2 07/24/2023 Active Atorvastatin Calcium 40 MG Oral Tablet (Lipitor)Indication s:Hyperlipidemia Take 1 Tablet by mouth in the morning. 90 Tablet 1 07/26/2023 Active Atorvastatin Calcium 40 MG Oral Tablet (Lipitor)Indication s:Hyperlipidemia Take 1 Tablet by mouth in the morning. 90 Tablet 3 07/25/2022 4 Discontinue d(Refill) documented as of this encounter (statuses as of 07/26/2023) Active Problems Problem Noted Date Diagnosed Date Pulmonary cachexia due to COPD 06/24/2023 Occupational exposure in workplace 06/24/2023 Bullous emphysema 06/24/2023 Elevated prostate specific antigen (PSA) 021 Respiratory bronchiolitis interstitial lung dise ase 07/29/2019 Bronchiectasis without complication 07/29/2019 COPD, group D, by GOLD 2017 classification 06/09 Overview: Per COPD GOLD Classification Mixed hyperlipidemia 10/03/2017 Lung nodule 12/25/2016 Chronic rhinitis 10/23/2016 HTN, goal below 140/90 09/18/2012 Tobacco use disorder 08/12/2012 Diverticulosis Blind left eye documented as of this encounter (statuses as of 07/26/2023) Resolved Problems Problem Noted Date Diagnosed Date Resolved Date Hypertensive chronic kidney disease 12/15/2021 01/03/2023 Chronic kidney disease, stage 3a 10/11/2020 06/27/2022 Overview: Per CKD protocol Benign hypertension with CKD (chronic kidney disease) stage III 09/13/2020 06/27/2022 Benign hypertension with sta ge 3a chronic kidney disease 09/06/2020 01/10/2023 Overview: Per CKD protocol Benign hypertension with CKD (chronic kidney disease) stage III 03/16/2020 09/08/2020 Overview: Per CKD protocol Former tobacco use 03/16/2020 Stage 3a chronic kidney disease 03/07/2020 04/14/2020 Overview: Per CKD protocol - Per CKD protocol Kidney disease, chronic, sta ge III (GFR 30-59 ml/min) 12/07/2019 03/10/2020 Overview: Per CKD protocol Abnormal CT scan, chest 07/29/2019 07/04/2020 COPD, group B, by GOLD 2017 classification 10/06/2018 06/10/2019 Overview: Per COPD GOLD Classification HTN, goal below 130/80 03/19/201709/20 Wheeze 10/23/2016 09/20/2017 HTN, goal below 150/90 08/09/201403/19 COPD, moderate 02/12/2013 02/12/2013 COPD, mild 02/12/2013 02/12/2013 COPD, moderate 02/12/2013 10/08/2018 Overview: Per COPD GOLD Classification documented as of this encounter (statuses as of 07/26/2023) Immunizations Name Administration Dates Next Due COVID-19 mRNA, LNP-s, No Pre serve, 2-Dose Series (Moderna) 08/24/2020,07/12/2020 COVID-19, mRNA, LNP-s, PF, B ooster, 100mcg/0.5mg (Moderna) 11/13/2021,04/12/2021 Pneumococcal Conjugate Vacc, 13 Valent (Prevnar) 08/12/2015 Pneumococcal Polysaccharide PPV23 (Pneumovax) TDAP (age 10 and older)(Boostrix) 08/13/2007 documented as of this encounter Social History Tobacco Use Types Packs/Day Years Used Date Smoking Tobacco: Every Day Cigarettes 0.9 58 Cigars Smokeless Tobacco: Never Comments:06/24/2023: began s moking age 17. Smoked up to 1.5 packs cigarettes per day. Presently smoking 1/2 ppd cigarettes Alcohol Use Standard Drinks/Week Comments Not Currently 0 (1 standard drink = 0.6 oz pur e alcohol) PHQ-2 Answer Date Recorded PHQ Adult Total Score 0 11/12/2022 Hunger Vital Sign Answer Date Recorded Within the past 12 months, y ou worried that your food would run out before you got the money to buy more. Never true 11/13/19 23 Within the past 12 months, t he food you bought just didn't last and you didn't have money to get more. Never true 11/12/2022 Sex and Gender Information Value Date Recorded Sex Assigned at Male 11/18/2018 9:58 AM EDT Gender Identity Male 11/18/2018 9:58 AM EDT Sexual Orientation Straight 11/18/2018 9: 58 AM EDT Job Start Date Occupation Industry Not on file Not on file Not on file documented as of this encounter Miscellaneous Notes * Telephone Encounter - [facility] - 07/26/2023 9:41 PM EDTSigned Prescriptions: Disp Refills Atorvastatin Calcium 40 MG Oral Tablet (Li*90 Tab*1 Sig: Take 1 Tablet by mouth in the morning.Authorizing Provider: CHAVEZ OLIVERA User: ALEE MESA documented in this encounter Plan of Treatment Upcoming Encounters Date Type Department Care Team (Late st Contact Info) Description 09/30/2023 3:30 PM EDT Office Visit Urology, [facility] [address] [facility] [place] [id number] Trae Montejo MD [address] [address] [place] [id number] 11/19/2023 10:30 AM EDT Nurse Only Ancillary [facility] [address] [facility] [place] [address] Im, Nurse Annual Wellness [facility] [address] [facility] [place] [address] 02/21/2024 10:00 AM EDT Office Visit General Internal Medicine [facility] [address] [facility] [place] [address] Chavez Olivera MD [address] [facility] [place] [address] 03/09/2024 9:00 AM EST Imaging Radiology [address] [facility] [place] [address] Health Maintenance Due Date Last Done Comments Zoster Vaccines (1 of 2) 08/08/1997 DTaP,Tdap,and Td Vaccines (2 - Td or Tdap) 08/12/2017 08/13/2007 DISCUSS TOBACCO CESSATION (REFER TO SMARTSET #[id number]) 11/09/2022 11/09/2021, 11/16/2020, 2014 (Discussed) COVID-19 Vaccine ( season) 2022 11/13/2021, 04/12/2021, 08/24/2020, Additional history exists Influenza Vaccine (FLU shot) (#1) 2022 O2 ASSESSMENT COMPLETED IN PAST YEAR FOR COPD 2023 08/08/2022 Depression Screening 11/13/2023 11/12/2022, 08/10/19 15 GFR 07/23/2024 07/24/2023, 12/28, 11/30/2022, Additional history exists Albumin/Creatinine Ratio 01/10/2026 023, 12/15/2021, 02/08/2014 COLONOSCOPY-EVERY 5 YRS AGES 18-100 2027 08/08/2022, 08/08/2022, 11/04/2019, Additional history exists Pneumococcal Vaccine: 65+ Years Completed 08/12/2015, 01/22/2013 Alpha-1 Antitrypsin Completed 11/09/2021 GARDASIL-HPV IMMUNIZATION SERIES Aged Out No longer eligible based on patient's age to complete this topic Hepatitis B Aged Out No longer eligi ble based on patient's age to complete this topic MENINGOCOCCAL (MENACTRA/MENVEO) Aged Out No longer eligible based on patient's age to complete this topic documented as of this encounter Medical Devices Not on filedocumented as of this encounter Visit Diagnoses Diagnosis Hyperlipidemia Other and unspecified hyperlipidemia documented in this encounter Care Teams Industrial Analyst Relationship Specialty Start Date End Date Chavez Olivera MD [address] [place] [address] PCP - General Internal Medicine 08/12/12 documented as of this encounter
--- OUTSIDE RECORDS SUMMARY | 2023-08-01 20:05 | External Medical Summary | Summary of Care ---
Author Name Unknown Organization [facility] Address [address] [place] [address] Phone [phone] Care Team Providers Care Welding Setter Name Role Phone Chavez Francois MD Primary Care Provider + Reason for Visit * Reason Comments Follow Up Encounter Details Date Type Department Care Team (Latest Contact Info) Description 06/24/2023 9:40 AM EST Office Visit Pulmonary Medicine, 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 16 g 2 09/14/2019 Active Nebulizer System All-In-One Use as directed. 0 Active hydroCHLOROthiazide 25 MG Oral Tablet (Hydrodiuril)Indica tions:HTN, goal below 140/90 TAKE 1 TABLET BY MOUTH DAILY. 90 Tablet 3 03/27/2021 Active Atorvastatin Calcium 40 MG Oral Tablet (Lipitor)Indication s:Hyperlipidemia Take 1 Tablet by mouth in the morning. 90 Tablet 3 07/25/2022 Active Ipratropium-Albuter ol 0.5-2.5 (3) MG/3ML Inhalation Solution (Duoneb)Indications :COPD, group D, by GOLD 2017 classification ([facility]) INHALE 3 ML (ONE VIAL) VIA NEBULIZER FOUR TIMES A DAY NEEDED 360 mL 3 09/25/2022 Active EPINEPHrine 0.3 MG/0.3ML Injection Solution Auto-injector (Autoinjector)Indic ations:Bee sting allergy For a severe reaction: Place orange end against the outer thigh, press firmly, hold in place for 10 seconds and go to the Emergency room. 2 Each 3 11/30/2022 Active Additional Information Patient not taking.Reported on 01/10/2023 Losartan Potassium 50 MG Oral Tablet (Cozaar)Indications :HTN, goal below 140/90,Benign hypertension with CKD (chronic kidney disease) stage III ([facility]) TAKE 1 TABLET BY MOUTH IN THE MORNING 100 Tablet 2 01/25/2023 Active Albuterol Sulfate HFA 108 (90 Base) MCG/ACT Inhalation Aerosol SolutionIndications :COPD, group B, by GOLD 2017 classification ([facility]) INHALE 2 PUFFS BY MOUTH EVERY 4 HOURS NEEDED FOR COUGH, SHORTNESS OF BREATH OR WHEEZING. 18 g 11 05/22/2023 5 Active Trelegy Ellipta 100-62.5-25 MCG/ACT Aerosol Powder Breath Activated (Fluticasone-Umecli dinium-Vilanterol)I ndications:COPD, group D, by GOLD 2017 classification ([facility]) Inhale 1 Puff by mouth in the morning. Rinse mouth and gargle with water after use.. 60 Each 11 06/24/2023 Active Trelegy Ellipta 100-62.5-25 MCG/ACT Aerosol Powder Breath Activated (Fluticasone-Umecli dinium-Vilanterol) Inhale 1 Puff by mouth in the morning. 60 Each 3 02/25/2023 4 Discontinu ed(Refill) documented as of this encounter (statuses as of 06/24/2023) Active Problems Problem Noted Date Diagnosed Date [...] as of this encounter (statuses as of 06/24/2023) Resolved Problems Problem Noted Date Diagnosed Date [...] CKD protocol Abnormal CT scan, chest 07/29/2019 07/2 04/2020 COPD, group B, by GOLD 2017 classification 10/06/2018 06/10/2019 Overview: Per COPD GOLD Classification HTN, goal below 130/80 03/19/201709/20 Wheeze 10/23/2016 09/20/2017 HTN, goal below 150/90 08/09/201403/19 COPD, moderate 02/12/2013 02/12/2013 COPD, mild 02/12/2013 02/12/2013 COPD, moderate 02/12/2013 10/08/2018 Overview: Per COPD GOLD Classification documented as of this encounter (statuses as of 06/24/2023) Immunizations Name Administration Dates Next Due COVID-19 [...] Cigarettes 0.9 58 Cigars Smokeless Tobacco: Never Tobacco Cessation:Ready to Q uit: Not Asked; Counseling Given: Not Answered Comments:06/24/2023: began smoking age 17. Smoked up to 1.5 packs [...] on file documented as of this encounter Last Filed Vital Signs Vital Sign Reading Time Taken Comments Blood Pressure 132/76 06/24/2023 9:27 AM EST Pulse 80 06/24/2023 9:27 AM EST Temperature 36.4 C (97.6 F) 06/24/2023 9:27 AM ES T Respiratory Rate 22 06/24/2023 9:27 AM EST Oxygen Saturation 96% 06/24/2023 9:28 AM EST ra amb Inhaled Oxygen Concentration - - Weight 46.7 kg (103 lb) 06/24/2023 9:27 AM EST Height 168.9 cm (5' 6.5") 06/24/2023 9:27 AM EST Body Mass Index 16.38 06/24/2023 9:27 AM EST documented in this encounter Patient Instructions * Patient Instructions* Blade Schneider, - 06/24/2023 9:42 AM EST For assistance quitting smoking, please call the [place] QuitLine: 3-432-LNGYNOW. Sukumar Andrews [phone] Benefits of Quitting Smoking Why should I quit smoking? Smoking is bad for you and bad for others around you. Smoking causes cancer, heart attacks, hardening of the arteries, bronchitis, emphysema, cough, shortness of breath, wrinkles, and premature aging. It stains teeth and fingers, irritates the eyes, furs the tongue, and causes bad breath. People are living longer today than their parents did, so it makes sense to work on staying healthy and independent. One of the best ways to do this is to quit smoking. Benefits of quitting smoking It takes time to reverse many years' worth of smoking damage to your body, but some benefits of quitting smoking begin immediately. For example, you're financially better off on day one. Your health starts to improve right away, too, because you remove a former constant source of irritation from your lungs. People may comment that you no longer cough. Your blood circulation is likely to improve, so your hands and feet may feel warmer. Your teeth, breath, and fingers are no longer a turn-off. Benefits that you're less aware of also begin to occur. These include better resistance to colds and respiratory infections, less likelihood of major heart and circulation problems, less risk of high blood pressure or stroke, and less risk of developing cancer. The following arguments are often presented by smokers as justifications for their continuing to smoke: "I have to sometime, so I might as well enjoy life until then." True, but as a smoker you're much more likely to of a heart attack or cancer - neither of whichare very pleasant ways to go. "I'm only hurting myself." True, if you don't count the heartache and grief you may cause your loved ones by your early or permanent disability, or the damage of your smoke to others. "Lots of people who smoke live to ripe old ages in perfect health." True, but this is rare. Nearly all smokers have significant health problems. "Smoking is one of my pleasures. I don't want to quit." Smoking is associated with pleasure because the nicotine in tobacco is an addictive drug. Your bodywill continue to crave a regular supply until you can overcome the habit. Smoking is always a disadvantage to your health and that of your loved ones. "It's my choice and I choose to smoke." True. It is your choice. In a survey of older former smokers, more than 90% quit on their own because they decided to do so. The main reasons they gave for quitting were wanting to stay healthy, following health care provider's advice, regaining control of their lives, and making a loved one happy . [place] Department of Health Quit Line [employer] Free Quitline 2-635 QUIT NOW ( ) Your insurance company may also have more information and helpful programs to help you quit. Some may even help cover some of the costs. For example, [facility] members can call to find out about their smoking cessation program and medication coverage. Developed by Delma Ryder MD, for [employer]. Published by [employer]. Last modified: 2005-09-07 Last reviewed: 2005-06-27 This content is reviewed periodically and is subject to change as new health information becomes available. The information is intended to inform and educate and is not a replacement for medical evaluation, advice, diagnosis or treatment by a healthcare professional. Adult Health Advisor 2006.4 Index Adult Health Advisor 2006.4 Credits Copyright 2006 [employer] and/or one of its subsidiaries. All Rights Reserved. documented in this encounter Progress Notes * Blade Scnheider DO - 06/24/2023 9:40 AM EST PULMONARY CLINIC FOLLOW UP NOTE REFERRING PROVIDER: Chavez Francois MD [facility] TEST ENGINE EVALUATOR: JAVIER Dhillon - last seen 06/07/2022 REASON FOR FOLLOW UP: Lung nodule [R91.1] - Primary Comments Referral for stair program enrollment BACKGROUND: 77 year old with past medical history significant for Active tobacco abuse (began smoking age 17. Smoked up to 1.5 packs cigarettes per day. Presently smoking 1/2 ppd cigarettes), COPD/radiographic emphysema, bronchiectasis, interstitial lung disease (felt to be smoking-related: Respiratory bronchiolitis interstitial lung disease (RB-ILD)), lung nodules (followed by the [facility] lung cancer screening program), chronic rhinitis, hyperlipidemia, hypertension, diverticular disease, elevated PSA, stage III CKD. HPI / ROS: Feeling "I don't know. What can you do?" Continues smoking: "About a half pack a day" No shortness of breath at rest or conversational dyspnea No orthopnea + dyspnea on exertion ROJO :When I walk up a hill ROJO while climbing 1 flight of stairs "Not really" cough productive of "Clear phlegm" sputum No hemoptysis No wheeze or chest tightness No chest pain or palpitations No edema No syncope or presyncopal symptoms No fevers, chills, sweats Appetite & weight "I'm still losing. I was 135. Now, out there with my clothes on its 108" Supplemental oxygen: No PAP: No No environmental allergies No GERD symptoms Inhaled medications: Trelegy 100/62.5/25 daily PRN albuterol HFA. Using "About 2 or 3 times a day" - Feels it is helpful PRN DuoNeb. Using Twice a day" - Feels "I don;t know if it helps or not" Past Medical History: Diagnosis Date Benign hypertension with CKD (chronic kidney disease) stage III (HCC) 03/16/2020 Blind left eye Bronchiectasis without complication ([facility]) 07/29/2019 Chronic rhinitis 10/23/2016 COPD (chronic obstructive pulmonary disease) ([facility]) COPD, moderate ([facility]) 02/12/2013 Diverticulosis Elevated prostate specific antigen (PSA) 09/13/2020 Former tobacco use 03/16/2020 HTN, goal below 140/90 09/18/2012 ILD (interstitial lung disease) ([facility]) Lung nodule Mixed hyperlipidemia 10/03/2017 Respiratory bronchiolitis interstitial lung disease ([facility]) 07/29/2019 Tobacco abuse 08/12/2012 Review of patient's allergies indicates: Allergen Reactions Nutritional Supplements Edema airway Cefuroxime Axetil Rash Bee Venom Food (See Comments) Diarrhea ALL nuts Current Outpatient Medications Medication Sig Dispense Refill fluticasone (FLONASE) 50 MCG/ACT nasal spray Administer 2 Sprays into each nostril daily. 16 g 2 Nebulizer System All-In-One Use as directed. hydroCHLOROthiazide 25 MG Oral Tablet (Hydrodiuril) TAKE 1 TABLET BY MOUTH DAILY. 90 Tablet 3 Atorvastatin Calcium 40 MG Oral Tablet (Lipitor) Take 1 Tablet by mouth in the morning. 90 Tablet 3 Ipratropium-Albuterol 0.5-2.5 (3) MG/3ML Inhalation Solution (Duoneb) INHALE 3 ML (ONE VIAL) VIA NEBULIZER FOUR TIMES A DAY NEEDED 360 mL 3 EPINEPHrine 0.3 MG/0.3ML Injection Solution Auto-injector (Autoinjector) For a severe reaction: Place orange end against the outer thigh, press firmly, hold in place for 10 seconds and go to the Emergency room. (Patient not taking: Reported on 01/10/2023) 2 Each 3 Losartan Potassium 50 MG Oral Tablet (Cozaar) TAKE 1 TABLET BY MOUTH IN THE MORNING 100 Tablet 2 Trelegy Ellipta 100-62.5-25 MCG/ACT Aerosol Powder Breath Activated (Etenhzlvmim-Ejvaaemfkdsr-Wmluogivap) Inhale 1 Puff by mouth in the morning. 60 Each 3 Albuterol Sulfate HFA 108 (90 Base) MCG/ACT Inhalation Aerosol Solution INHALE 2 PUFFS BY MOUTH EVERY 4 HOURS NEEDED FOR COUGH, SHORTNESS OF BREATH OR WHEEZING. 18 g 11 No current facility-administered medications for this visit. SOCIAL HISTORY Pulmonary History: Active smoker: Began smoking age 17. Smoked up to 1.5 packs cigarettes per day. 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 In no acute distress able to speak in full sentences, without conversational dyspnea, while on room air. Oriented X 3. Eyes: Left eye abnormal. Right eye without icterus. Ears: External ears normal in shape and color Nose: No mucosal erythema, no mucosal edema, no purulent discharge Oropharynx: No exudate, no erythema, lips, buccal mucosa, and tongue normal, MMM. Neck: No bruits. No stridor. Lymph: No palpable cervical or supraclavicular lymphadenopathy Heart: Distant regular without extra sounds Lungs: Poor air movement bilaterally. Scattered rhonchi and wheeze. Pulses: The exposed bilateral lower extremities appear warm and well perfused Abdomen: Soft, non-tender and normal bowel sounds Extremities: No edema, no cyanosis Neurologic: Alert & oriented x 3 with fluent speech, no focal motor/sensory deficits Musculoskeletal: Muscle wasting Skin: No rashes or significant lesions on the exposed skin Labs: 01/10/2023: BMP: Normal bicarbonate and measured anion gap. Estimated GFR 88. 11/09/2021: Alpha-1 antitrypsin: 207 (elevated) Clinician interpretation of Pulmonary Function Tests: 05/16/2021: Baseline spirometry shows severe airflow obstruction as per ATS criteria. Following bronchodilator, there is significant improvement. Post- bronchodilator spirometry, however, remains showing severe airflow obstruction as per ATS criteria. If the patient carries a clinical diagnosis of COPD, the degree of airflow obstruction is severe as per GOLD criteria. Lung volumes suggest the presence of air trapping. Expiratory reserve volume is within normal limits. Uncorrected Diffusion Capacity (DLCO) is moderately decreased at 41% predicted. The flow volume loop is consistent with obstructive physiology. When compared to prior pulmonary function testing performed 10/26/2016 there has been decline in spirometry and total lung capacity with stability of % predicted DLCO Clinician interpretation of Chest X-ray: 07/12/2022: Hyperinflated appearing lungs with flattened hemidiaphragms bilaterally. Few tiny nodules noted in the lower right lung field. No dense infiltrate or gross pleural disease. Cardiomediastinal silhouette unremarkable. When compared to prior chest x-ray 05/20/2019, interstitial markings are not as coarse on the present film. Clinician interpretation of Chest CT scan: 03/05/2023: CT chest without contrast: "IMPRESSION: 1. Emphysema 2. Interval improvement in the probable prior nodular pneumonia" -- Significant panlobular and bullous emphysema. Bilateral subcentimeter pulmonary nodules, worst in the upper lobes. Mild bronchiectasis and peribronchial thickening. Scattered areas of mild subsegmental atelectasis. Likely secretions in the airways. No significant mediastinal or hilar adenopathy. Sarcopenia. When compared to prior chest CT 12/03/2022, there appearsto be a new sub 6 mm soft tissue density nodule in the right middle lobe, spiculated nodule verses infiltrate in the dependent right lower lobe has resolved Echocardiogram: 08/10/2013: Dobutamine stress echocardiogram: Negative for inducible ischemia. LV wall motion normal. LV EF 55-59%. No significant valvular disease. RV cavity size and systolic function normal. Atrial size normal. No pericardial effusion. Assessment: COPD with bullous emphysema Active tobacco abuse: Began smoking age 17. Smoked up to 1.5 packs cigarettes per day. 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 We discussed that ongoing smoking may worsen pulmonary disease and may cause irreversible and fataldamage. We reviewed that smoking cessation is paramount to the success of the treatment plan. We reviewed the serious and potentially serious, permanent, and even fatal complications smoking may have on one's health. This includes, but is not limited to: increased risk for malignancy, accelerated cardiovascular/peripheral vascular/neurovascular disease, accelerated lung/airways disease, , etc. We discussed the equally significant risks of secondhand smoke and the importance of avoidance of secondhand smoke exposure We discussed smoking cessation strategies I provided the patient with information regarding the [place] quit Line, including the telephone number, 1-581-ACEH-NOW. I discouraged use of electronic cigarettes or vaping as a means for quitting smoking Primary care/referring provider should continue to encourage smoking cessation. 06/24/2023: I told the patient, in no uncertain terms, that if he does not quit smoking soon, he will likely have progression of his lung disease and may from a smoking-related lung or cardiovascular issue. Pulmonary function testing: None further needed. Chest imaging: Due to his age and smoking history, he qualifies for low-dose chest CT for lung cancer surveillance. Per chart review, it appears he is enrolled in his program. However, the patient states he was notaware he was enrolled in the program and would like a new referral placed as program today, which was done for him. Bronchoscopy/tissue sampling: None recommended for now. However, recommendations may change based results of follow-up CT scans, as above Cardiac testing: None ordered Inhaled medications: Continue without change Trelegy 100/62.5/25 daily - refill given today PRN albuterol HFA PRN DuoNeb Supplemental oxygen/PAP: None prescribed. No hypoxemia noted. Denies symptoms to suggest sleep disordered breathing and mostrecent BMP does not suggest chronic hypercarbia. Pulmonary hygiene: Regular aerobic exercise is recommended. Flutter therapy: Advised 4 times daily, 5 minutes per occurrence Pulmonary rehabilitation: No referral placed. The patient notes he has not interested in pulmonary rehabilitation Labs: None ordered The patient has further breathing issues, may consider sending sputum for culture, fungal, and AFB (X 3) analysis Specialty follow-up: [facility] Lung Cancer screening program to facilitate low-dose chest CT scans, as directed. As above, the patient requested a new referral to the lung cancer screening program be placed again today. This was done for him. Primary care provider/referring provider should consider/facilitate the following: Continue to encourage smoking cessation Keep respiratory vaccinations up-to-date Keep all age-appropriate cancer screening up-to-date Patient should avoid known respiratory irritants. The patient should avoid secondhand smoke exposure and use proper personal protective equipment anytime exposed to smoke, fumes, dust, chemicals, particulate matter, etc. No pulmonary contraindication to regular aerobic exercise, which is encouraged. All questions from the patient were answered. Follow Up: Return in about 6 months (around 12/23/2023). Blade Schneider DO [facility] Pulmonary Medicine, [place] [address] This note was completed using voice recognition software. Please excuse any word substitutions/deletions or similar errors The following information was reviewed/discussed with the patient: Benefits & harms of screening Potential indications for follow-up testing, if/when necessary Risk of over-diagnosis, false positive findings, and radiation exposure Importance of cigarette smoking abstinence, if applicable Annual adherence to lung cancer screening Impact of comorbidities and ability or willingness to undergo diagnostic testing and/or treatment if something concerning is identified during screening. documented in this encounter Nursing Notes * Amalia Tejeda LPN - 06/24/2023 9:23 AM EST Pt here for follow up of COPD, ILD, bronchiectasis, lung nodule, tobacco use, and chronic rhinitis. MMRC Dyspnea Scale = 4 (I am too breathless to leave the house or I am breathless when dressing) Interm History/Respiratory Symptoms Cough: Yes with clear phlegm Hemoptysis: None Sinus Symptoms: Drainage, especially in the mornings. Hospitalizations: None ED Trips: None Triggers: Exertion Nocturnal: None CPAP/BiPAP/O2: None Flu Vaccine: Declined Pneumovax: 2012 Prevnar: 2016 COVID 19: Yes documented in this encounter Plan of Treatment Upcoming Encounters Date Type Department Care Team (Late st Contact Info) Description 07/24/2023 10:40 AM EDT Office Visit General Internal Medicine [address] [place] [address] Chavez Francois MD [address] [facility] [place] [address] 09/24/2023 1:45 PM EDT Office Visit Urology, [facility] [address] [place] [address] Trae Montejo MD [address] [facility] [address] [place] [address] 11/19/2023 10:30 AM EDT Nurse Only Ancillary [facility] [address] [place] [address] Im, Nurse Annual Wellness [address] [place] [address] Health Maintenance Due Date Last Done Comments Zoster Vaccines (1 of 2) 08/08/1997 DTaP,Tdap,and Td Vaccines (2 - Td or Tdap) 08/12/2017 08/13/2007 DISCUSS TOBACCO CESSATION (REFER TO SMARTSET #[id number]) 11/09/2022 11/09/2021, 11/16/2020, 2014 (Discussed) COVID-19 Vaccine (5 - 2023- season) 2022 11/13/2021, 04/12/2021, 08/24/2020, Additional history exists Influenza Vaccine (FLU shot) (#1) 2022 O2 ASSESSMENT COMPLETED IN PAST YEAR FOR COPD 2023 08/08/2022 Depression Screening 11/13/2023 11/12/2022, 08/10/19 15 GFR 01/11/2024 01/10/2023, 08/0 07/2022, 07/17/2022, Additional history exists Albumin/Creatinine Ratio 01/10/2026 023, [...] as of this encounter Visit Diagnoses Diagnosis COPD, group D, by GOLD 2017 classification (HCC)- Primary History of tobacco abuse Personal history of tobacco use, presenting hazards to health Bronchiectasis without complication (HCC) Bronchiectasis without acute exacerbation Bullous emphysema (HCC) Emphysematous bleb Occupational exposure in workplace Adverse effects of work environment Lung nodules Other nonspecific abnormal finding of lung field Unintentional weight loss Loss of weight 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
--- OUTSIDE RECORDS SUMMARY | 2023-08-01 20:05 | External Medical Summary | Summary of Care ---
Author Name Unknown Organization [facility] Address [address] [place] [address] Phone [phone] Care Team Providers Care Record Retrieval Specialist Name Role Phone Chavez Olivera MD Primary Care Provider + Reason for Visit * Reason Comments NEW PATIENT * Evaluate & Treat - Unlimited Visits (Within 3 days (urgent)) - Authorized Specialty Diagnoses / Procedures Referred By Contac t Referred To Contact Urology Diagnoses Loss of weight Elevated prostate specific antigen (PSA) Chavez Olivera MD [address] [place] [address] Referral ID Status Reason Start Date Expiration Date Visits Requested Visits Authorized [id number] Authorized Specialty Services Required 01/11/2023 [id number] Encounter Details Date Type Department Care Team (Late st Contact Info) Description 03/18/2023 3:30 PM EST Office Visit Urology, [facility] 132 [facility] [place] [address] Trae Montejo MD 27 [facility] [address] [place] [address] Elevated prostate specific antigen (PSA)*; BPH with obstruction/lower urinary tract symptoms Allergies Active Allergy Reactions Criticality Noted Date Comments Bee Venom 10/21/2014 Cefuroxime Axetil Rash Medium 08/12/2012 Food (See Comments) Diarrhea 08/01/2022 ALL nuts Nutritional Supplements Edema airway High 10/20/2012 documented as of this encounter (statuses as of 03/18/2023) Medications Medication Sig Dispensed Refills Start Date End Date Status fluticasone (FLONASE) 50 MCG/ACT nasal sprayIndications:MOBILE APPLICATION ARCHITECT D, moderate ([facility]),Chronic rhinitis Administer 2 Sprays into each nostril daily. 16 g 2 09/14/2019 Active Nebulizer System All-In-One Use as directed. 0 Active hydroCHLOROthiazide 25 MG Oral Tablet (Hydrodiuril)Indicat ions:HTN, goal below 140/90 TAKE 1 TABLET BY MOUTH DAILY. 90 Tablet 3 03/27/2021 Active Atorvastatin Calcium 40 MG Oral Tablet (Lipitor)Indications :Hyperlipidemia Take 1 Tablet by mouth in the morning. 90 Tablet 3 07/25/2022 Active Ipratropium-Albutero l 0.5-2.5 (3) MG/3ML Inhalation Solution (Duoneb)Indications: COPD, group D, by GOLD 2017 classification ([facility]) INHALE 3 ML (ONE VIAL) VIA NEBULIZER FOUR TIMES A DAY NEEDED 360 mL 3 09/25/2022 Active Albuterol Sulfate HFA 108 (90 Base) MCG/ACT Inhalation Aerosol SolutionIndications: COPD, group B, by GOLD 2017 classification ([facility]) INHALE 2 PUFFS BY MOUTH EVERY 4 HOURS NEEDED FOR COUGH, SHORTNESS OF BREATH OR WHEEZING. 18 g 11 11/06/2022 4 Active EPINEPHrine 0.3 MG/0.3ML Injection Solution Auto-injector (Autoinjector)Indica tions:Bee sting allergy For a severe reaction: Place orange end against the outer thigh, press firmly, hold in place for 10 seconds and go to the Emergency room. 2 Each 3 11/30/2022 Active Additional Information Patient not taking.Reported on 01/10/2023 Losartan Potassium 50 MG Oral Tablet (Cozaar)Indications: HTN, goal below 140/90,Benign hypertension with CKD (chronic kidney disease) stage III ([facility]) TAKE 1 TABLET BY MOUTH IN THE MORNING 100 Tablet 2 01/25/2023 Active Trelegy Ellipta 100-62.5-25 MCG/ACT Aerosol Powder Breath Activated (Fluticasone-Umeclid inium-Vilanterol) Inhale 1 Puff by mouth in the morning. 60 Each 3 02/25/2023 Active documented as of this encounter (statuses as of 03/18/2023) Active Problems Problem Noted Date Diagnosed Date Elevated prostate specific antigen (PSA) 021 Respiratory bronchiolitis interstitial lung dise ase 07/29/2019 Bronchiectasis without complication 07/29/2019 COPD, group D, by GOLD 2017 classification 06/09 Overview: Per COPD GOLD Classification Mixed hyperlipidemia 10/03/2017 Lung nodule 12/25/2016 Chronic rhinitis 10/23/2016 HTN, goal below 140/90 09/18/2012 Tobacco use disorder 08/12/2012 Diverticulosis Blind left eye documented as of this encounter (statuses as of 03/18/2023) Resolved Problems Problem Noted Date Diagnosed Date [...] Per CKD protocol Abnormal CT scan, chest 07/29/201910/28 COPD, group B, by GOLD 2017 classification 10/06/2018 06/10/2019 Overview: Per COPD GOLD Classification HTN, goal below 130/80 03/19/201709/20 Wheeze 10/23/2016 09/20/2017 HTN, goal below 150/90 08/09/201403/19 COPD, moderate 02/12/2013 02/12/2013 COPD, mild 02/12/2013 02/12/2013 COPD, moderate 02/12/2013 10/08/2018 Overview: Per COPD GOLD Classification documented as of this encounter (statuses as of 03/18/2023) Immunizations Name Administration Dates Next Due COVID-19 mRNA, LNP-s, No Pre serve, 2-Dose Series (Moderna) 08/24/2020,07/12/2020 COVID-19, mRNA, LNP-s, PF, B ooster, 100mcg/0.5mg (Moderna) 11/13/2021,04/12/2021 Pneumococcal Conjugate Vacc, 13 Valent (Prevnar) 08/12/2015 Pneumococcal Polysaccharide PPV23 (Pneumovax) TDAP (age 10 and older)(Boostrix) 08/13/2007 documented as of this encounter Social History Tobacco Use Types Packs/Day Years Used Date Smoking Tobacco: Every Day Cigarettes 0.5 58 Cigars Smokeless Tobacco: Never Comments:11/09/21 Pt current ly smokes .5 ppd Alcohol Use Standard Drinks/Week Comments Not Currently [...] Sign Reading Time Taken Comments Blood Pressure - - Pulse - - Temperature 36.1 C (96.9 F) 03/18/2023 3:31 PM ES T Respiratory Rate - - Oxygen Saturation - - Inhaled Oxygen Concentration - - Weight 48.2 kg (106 lb 4.8 oz) 03/18/2023 3:31 P M EST Height - - Body Mass Index 16.9 01/10/2023 9:06 AM EDT documented in this encounter Progress Notes * Trae Montejo MD - 03/18/2023 3:30 PM EST [id number] PCP: CHAVEZ OLIVERA [address] [place] [address], [place] [address] Sukumar Andrews is a 77 year old male, who presents in referral for evaluation of elevated PSA and weight loss. His past notes are reviewed, last seen 2 and half years ago by Dr. Castro. He denies LUTS or hematuria. CT images are reviewed - BPH and renal cysts. These are personally reviewed with patient. Fluctuations of PSA are appreciated. Patient denies voiding bother. Elevated PSA: Patient is being seen for evaluation of an elevated PSA. Previous evaluation includes referral to Urology. Patient has been on no medication. He reports no bothersome voiding symptoms. PSA Results: Lab Results Component Value Date/Time PSA - [facility] 10.33 (H) 01/10/2023 09:39 AM PSA - [facility] 3.29 12/15/2021 11:52 AM PSA - [facility] 2.65 09/13/2020 09:21 AM PSA - [facility] 8.78 (H) 03/16/2020 09:26 AM PSA - [facility] 1.99 11/18/2018 10:13 AM PSA - [facility] 2.95 04/15/2017 02:31 PM PSA SCREENING 1.66 02/10/2015 08:27 AM Current Outpatient Medications Medication Sig Dispense Refill [...] TIMES A DAY NEEDED 360 mL 3 Albuterol Sulfate HFA 108 (90 Base) MCG/ACT Inhalation Aerosol Solution INHALE 2 PUFFS BY MOUTH EVERY 4 HOURS NEEDED FOR COUGH, SHORTNESS OF BREATH OR WHEEZING. 18 g 11 EPINEPHrine 0.3 MG/0.3ML Injection Solution Auto-injector (Autoinjector) [...] Ellipta 100-62.5-25 MCG/ACT Aerosol Powder Breath Activated (Jwxvsmgvknq-Rjbtgbhtghnz-Qbvqbwmrer) Inhale 1 Puff by mouth in the morning. 60 Each 3 No current facility-administered medications for this visit. Review of patient's allergies indicates: Allergen Reactions Nutritional Supplements Edema airway Cefuroxime Axetil Rash Bee Venom Food (See Comments) Diarrhea ALL nuts Social History: Social History Tobacco Use Smoking status: Every Day Packs/day: 0.50 Years: 58.00 Additional pack years: 0.00 Total pack years: 29.00 Types: Cigarettes, Cigars Smokeless tobacco: Never Tobacco comments: 11/09/21 Pt currently smokes .5 ppd Substance Use Topics Alcohol use: Not Currently Vaping/E-Cigarette Use Vaping/E-Cigarette Use Never User Vaping/E-Cigarette Substances Vaping/E-Cigarette Devices Family History Problem Relation Age of Onset Stroke Sister Heart Disorder Sister No Known Problems Sister No Known Problems Sister Heart Disorder Brother Other (stent) Brother Past Surgical History: Procedure Laterality Date COLONOSCOPY, DIAGNOSTIC (RECTUM) 11/05/2014 polyp removed not retrieved, diverticulosis, repeat 5 yrs/COLONOSCOPY FLEXIBLE PROXIMAL DIAGNOSTIC performed by Billy Campbell MD at ENDOSCOPY [facility] COLONOSCOPY, DIAGNOSTIC (RECTUM) 11/04/2019 Stricture in the sigmoid colon / COLONOSCOPY FLEXIBLE PROXIMAL DIAGNOSTIC performed by Billy Campbell MD at ENDOSCOPY [facility] COLONOSCOPY, DIAGNOSTIC (RECTUM) 08/08/2022 diverticulosis / COLONOSCOPY FLEXIBLE PROXIMAL DIAGNOSTIC performed by Al Ramsay MD at ENDOSCOPY [facility] EGD, FLEXIBLE, DIAGNOSTIC 08/08/2022 Schatzki ring, hiatal hernia, normal bx / ESOPHAGOGASTRODUODENOSCOPY (EGD), FLEXIBLE, TRANSORAL, DIAGNOSTIC performed by Al Ramsay MD at ENDOSCOPY [facility] INCISION OF COLON 04/29/2004 bilateral inguinal INJECT DX/THER SUBSTANCE INTERLAMINAR CERVICAL/THORACIC W IMAGE GUIDE 08/21/2018 INJECTION SPINE LUMBAR CERVICAL OR THORACIC performed by Jeferson Rodríguez, at OR [facility] INJECT DX/THER SUBSTANCE INTERLAMINAR CERVICAL/THORACIC W IMAGE GUIDE 09/04/2018 INJECTION SPINE LUMBAR CERVICAL OR THORACIC performed by Jeferson Rodríguez, DO at OR [facility] PROCEDURE - GENERAL Left 01/08/2022 left inguinal hernia repair by Dr William Lambert REMOVE GALLBLADDER 10/11/[address] Arora [facility] 10/11/12 SURGICAL PROCEDURE ONLY Right 04/16/2022 open repair right inguinal hernia with mesh Past Medical History: Diagnosis Date Benign hypertension with CKD (chronic kidney disease) stage III ([facility]) 03/16/2020 Blind left eye Chronic rhinitis 10/23/2016 COPD (chronic obstructive pulmonary disease) ([facility]) COPD, moderate ([facility]) 02/12/2013 Diverticulosis Elevated prostate specific antigen (PSA) 09/13/2020 Former tobacco use 03/16/2020 HTN, goal below 140/90 09/18/2012 ILD (interstitial lung disease) ([facility]) Lung nodule Mixed hyperlipidemia 10/03/2017 Tobacco abuse 08/12/2012 Patient Active Problem List Diagnosis Code Diverticulosis K57.90 Blind left eye H54.40 Tobacco use disorder F17.200 HTN, goal below 140/90 I10 Chronic rhinitis J31.0 Lung nodule R91.1 Mixed hyperlipidemia E78.2 COPD, group D, by GOLD 2017 classification ([facility]) J44.9 Respiratory bronchiolitis interstitial lung disease ([facility]) J84.115 Bronchiectasis without complication ([facility]) J47.9 Elevated prostate specific antigen (PSA) R97.20 Constitutional: (-) fever and (-) chills Eyes: (+) decreased vision ENT: (-) stridor Male : see HPI Neurology: (-) negative: no focal neurologic defect Psychiatry: (-) negative: no depression or anxiety Pulmonary: (+) cough Physical Exam Nursing note reviewed. Constitutional: General: He is not in acute distress. Appearance: Normal appearance. He is not toxic-appearing. Comments: thin HENT: Head: Normocephalic and atraumatic. Right Ear: External ear normal. Left Ear: External ear normal. Nose: Nose normal. Mouth/Throat: Mouth: Mucous membranes are moist. Cardiovascular: Pulses: Normal pulses. Pulmonary: Effort: Pulmonary effort is normal. Abdominal: Palpations: Abdomen is soft. Tenderness: There is no abdominal tenderness. Genitourinary: Comments: >80 gram prostate, smooth, no induration or nodules, no seminal vesicle abnormalities,normal rectal tone. Musculoskeletal: Cervical back: Normal range of motion and neck supple. Lymphadenopathy: Cervical: No cervical adenopathy. Skin: Coloration: Skin is not cyanotic or pale. Neurological: Mental Status: He is alert and oriented to person, place, and time. Psychiatric: Attention and Perception: Attention normal. Mood and Affect: Mood and affect normal. Impression/Plan: 77-year-old male with benign digital rectal exam. Findings reviewed with the patient. I am not suspicious that the patient has occult prostate cancer causing his weight loss. Digital rectal exam is benign, PSA is fluctuate in the past. Will check aPSA free and total today and in 6 months. Patient can contact us sooner with any urinary deterioration. Above content is personally reviewed. Patient vocalizes good understanding of the treatment plan. Trae Montejo MD 3:20 PM 03/18/2023 documented in this encounter Nursing Notes * Marly RuedaGODFREY - 03/18/2023 3:29 PM EST Last seen [address] Castro. Referred back by PCP for elevated PSA and weight loss PSA Results: Lab Results Component Value Date/Time PSA - [facility] 10.33 (H) 01/10/2023 09:39 AM PSA - [facility] 3.29 12/15/2021 11:52 AM PSA - [facility] 2.65 09/13/2020 09:21 AM PSA - [facility] 8.78 (H) 03/16/2020 09:26 AM PSA - [facility] 1.99 11/18/2018 10:13 AM PSA - [facility] 2.95 04/15/2017 02:31 PM PSA SCREENING 1.66 02/10/2015 08:27 AM No urological symptoms/concerns documented in this encounter Plan of Treatment Upcoming Encounters Date Type Department Care Team (Late st Contact Info) Description 03/18/2023 4:20 PM EST Laboratory Laboratory, [address] [address] [facility] 132 [place] [address] Elevated prostate specific antigen (PSA); BPH with obstruction/lower urinary tract symptoms 03/20/2023 12:20 PM EST Office Visit Pulmonary Medicine, [facility] [address] [place] [address] Pacheco Martino, DO [address] [place] [address] 07/24/2023 10:40 AM EDT Office Visit General Internal Medicine [facility] 200 [facility] [place] [address] Chavez Olivera MD 200 [facility] [place] [address] 09/24/2023 1:45 PM EDT Office Visit Urology, [facility] [address] [place] [address] Trae Montejo MD 27 [facility] 270 [place] [address] 11/19/2023 10:30 AM EDT Nurse Only Ancillary [facility] 200 [facility] [place] [address] Im, Nurse Annual Wellness [address] [place] [address] Pending Results Name Type Priority Associated Diagnoses Date /Time PSA WITH FREE PSA IF INDICATED Lab Routine Elevated prostate specific antigen (PSA) BPH with obstruction/lower urinary tract symptoms 03/18/2023 4:10 PM EST Scheduled Orders Name Type Priority Associated Diagnoses Orde r Schedule PSA WITH FREE PSA IF INDICATED Lab Routine Elevated prostate specific antigen (PSA) BPH with obstruction/lower urinary tract symptoms Expected: 03/18/2023, Expires: 03/18/2024 PSA WITH FREE PSA IF INDICATED Lab Routine Elevated prostate specific antigen (PSA) BPH with obstruction/lower urinary tract symptoms Expected: 09/16/2023, Expires: 03/18/2024 Health Maintenance Due Date Last Done Comments [...] 11/13/2023 11/12/2022, 08/10/19 15 GFR 01/11/2024 01/10/2023, 08/07/2022, 07/17/2022, Additional history exists Albumin/Creatinine Ratio 01/10/2026 [...] as of this encounter Visit Diagnoses Diagnosis Elevated prostate specific antigen (PSA)- Primary BPH with obstruction/lower urinary tract symptoms Hypertrophy of prostate with urinary obstruction and other lower urinary tract symptoms (LUTS) Elevated prostate specific antigen (PSA) BPH with obstruction/lower urinary tract symptoms Hypertrophy of prostate with urinary obstruction and other lower urinary tract symptoms (LUTS) documented in this encounter Care Teams Record Retrieval Specialist Relationship Specialty Start Date End Date Chavez Olivera MD [address] [place] [address] PCP - General Internal Medicine 08/12/12 documented as of this encounter
--- OUTSIDE RECORDS SUMMARY | 2023-08-01 20:05 | External Medical Summary | Summary of Care ---
Author Name Unknown Organization [facility] Address [address] [facility] [address] Phone [phone] Care Team Providers Care Land Leasing Examiner Name Role Phone Chavez Francois MD Primary Care Provider + Reason for Visit * Reason Onset Date Comments Test Results 03/20/2023 Encounter Details Date Type Department Care Team (Late st Contact Info) Description 03/20/2023 Telephone General Internal Medicine [facility] 200 [facility] [place] [address] Dick Daniels PA-C [facility] [address] Test Results Allergies Active Allergy Reactions Criticality Noted Date Comments Bee Venom 10/21/2014 Cefuroxime Axetil Rash Medium 08/12/2012 Food (See Comments) Diarrhea 08/01/2022 ALL nuts Nutritional Supplements Edema airway High 10/20/2012 documented as of this encounter (statuses as of 03/20/2023) Medications Medication Sig Dispensed Refills Start Date End Date Status fluticasone (FLONASE) 50 MCG/ACT nasal sprayIndications: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, 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 ([facility]),Chronic rhinitis Administer 2 Sprays into [...] COPD, group D, by GOLD 2017 classification ([facility]) INHALE 3 ML (ONE VIAL) VIA NEBULIZER FOUR TIMES A DAY NEEDED 360 mL 3 09/25/2022 Active Albuterol Sulfate HFA 108 (90 Base) MCG/ACT Inhalation Aerosol SolutionIndications: COPD, group B, by GOLD 2017 classification ([facility]) INHALE 2 PUFFS BY MOUTH EVERY [...] with CKD (chronic kidney disease) stage III ([facility]) TAKE 1 TABLET BY MOUTH IN THE MORNING 100 Tablet 2 01/25/2023 Active Trelegy Ellipta 100-62.5-25 MCG/ACT Aerosol Powder Breath Activated (Fluticasone-Umeclid inium-Vilanterol) Inhale 1 Puff by mouth in the morning. 60 Each 3 02/25/2023 Active documented as of this encounter (statuses as of 03/20/2023) Active Problems Problem Noted Date Diagnosed Date [...] as of this encounter (statuses as of 03/20/2023) Resolved Problems Problem Noted Date Diagnosed Date [...] as of this encounter (statuses as of 03/20/2023) Immunizations Name Administration Dates Next Due COVID-19 [...] encounter Miscellaneous Notes * Telephone Encounter - Donato Gallegos LPN - 03/20/2023 3:33 PM EST patient informed and voiced understanding. Already scheduled with pul lung nodule program. * Telephone Encounter - Donato Gallegos LPN - 03/20/2023 3:32 PM EST ----- Message from Dick Daniels PA-C sent at 03/07/2023 2:08 PM EST ----- Ct chest. Can be enrolled in lung nodule program if he is agreeable where pulmonary oversees monitoring documented in this encounter Plan of Treatment Upcoming Encounters Date Type Department Care Team (Late st Contact Info) Description 06/24/2023 9:40 AM EST Office Visit Pulmonary Medicine, [facility] 132 [place] [address] Blade Schneider DO [address] [place] [address] 07/24/2023 10:40 AM EDT Office Visit General Internal Medicine [facility] 200 [facility] [place] [address] Chavez Francois MD 200 [facility] [place] [address] 09/24/2023 1:45 PM EDT Office Visit Urology, [facility] 132 [facility] [place] [address] Trae Montejo MD 27 [facility] 270 [place] [address] 11/19/2023 10:30 AM EDT Nurse Only Ancillary [facility] 200 [facility] [place] [address] Im, Nurse Annual Wellness [address] [place] [address] Health Maintenance Due Date Last Done Comments [...] Not on filedocumented as of this encounter Care Teams Land Leasing Examiner Relationship Specialty Start Date End Date Chavez Francois MD [address] [place] [address] PCP - General Internal Medicine 08/12/12 documented as of this encounter
--- OUTSIDE RECORDS SUMMARY | 2023-08-01 20:05 | External Medical Summary | Summary of Care ---
Author Name Unknown Organization [facility] Address [address] [place] [address] Phone [phone] Care Team Providers Care Newspaper Editor Managing Name Role Phone Chavez Olivera MD Primary Care Provider + Reason for Visit * Reason Comments Medication Refill Encounter Details Date Type Department Care Team (Late st Contact Info) Description 05/22/2023 Refill Pulmonary Medicine, [facility] [address] [place] [address] Chavez Olivera MD [address] [place] [address] COPD, group B, by GOLD 2017 classification ([facility]) Allergies Active Allergy Reactions Criticality Noted Date Comments Bee Venom 10/21/2014 Cefuroxime Axetil Rash Medium 08/12/2012 Food (See Comments) Diarrhea 08/01/2022 ALL nuts Nutritional Supplements Edema airway High 10/20/2012 documented as of this encounter (statuses as of 05/22/2023) Medications Medication Sig Dispensed Refills Start Date [...] :COPD, group D, by GOLD 2017 classification ([facility]) INHALE 3 ML (ONE VIAL) VIA NEBULIZER [...] with CKD (chronic kidney disease) stage III ([facility]) TAKE 1 TABLET BY MOUTH IN THE MORNING 100 Tablet 2 01/25/2023 Active Trelegy Ellipta 100-62.5-25 MCG/ACT Aerosol Powder Breath Activated (Fluticasone-Umecli dinium-Vilanterol) Inhale 1 Puff by mouth in the morning. 60 Each 3 02/25/2023 Active Albuterol Sulfate HFA 108 (90 Base) MCG/ACT Inhalation Aerosol SolutionIndications :COPD, group B, by GOLD 2017 classification ([facility]) INHALE 2 PUFFS BY MOUTH EVERY 4 HOURS NEEDED FOR COUGH, SHORTNESS OF BREATH OR WHEEZING. 18 g 11 05/22/2023 5 Active Albuterol Sulfate HFA 108 (90 Base) MCG/ACT Inhalation Aerosol SolutionIndications :COPD, group B, by GOLD 2017 classification ([facility]) INHALE 2 PUFFS BY MOUTH EVERY 4 HOURS NEEDED FOR COUGH, SHORTNESS OF BREATH OR WHEEZING. 18 g 11 11/06/2022 4 Discontinu ed(Refill) documented as of this encounter (statuses as of 05/22/2023) Active Problems Problem Noted Date Diagnosed Date Elevated prostate specific antigen (PSA) 021 Respiratory bronchiolitis interstitial lung dise ase 07/29/2019 Bronchiectasis without complication 07/29/2019 COPD, group D, by GOLD 2017 classification 02/11 /2020 Overview: Per COPD GOLD Classification Mixed hyperlipidemia 10/03/2017 Lung nodule 12/25/2016 Chronic rhinitis 10/23/2016 HTN, goal below 140/90 09/18/2012 Tobacco use disorder 08/12/2012 Diverticulosis Blind left eye documented as of this encounter (statuses as of 05/22/2023) Resolved Problems Problem Noted Date Diagnosed Date [...] as of this encounter (statuses as of 05/22/2023) Immunizations Name Administration Dates Next Due COVID-19 [...] encounter Miscellaneous Notes * Telephone Encounter - Chavez Olivera MD - 05/22/2023 8:45 AM ESTSigned Prescriptions: Disp Refills Albuterol Sulfate HFA 108 (90 Base) MCG/AC*18 g 11 Sig: INHALE 2PUFFS BY MOUTH EVERY 4 HOURS NEEDED FOR COUGH, SHORTNESS OF BREATH OR WHEEZING.Authorizing Provider: CHAVEZ OLIVERA documented in this encounter Plan of Treatment Upcoming Encounters Date Type Department Care Team (Late st Contact Info) Description 06/24/2023 9:40 AM EST Office Visit Pulmonary Medicine, [facility] 132 [facility] [place] [address] Blade Schneider DO [address] [place] [address] 07/24/2023 10:40 AM EDT Office Visit General Internal Medicine [address] [place] [address] Chavez Olivera MD 200 [facility] [place] [address] 09/24/2023 1:45 PM EDT Office Visit Urology, [facility] 132 [facility] [place] [address] Trae Montejo MD [address] [address] 11/19/2023 10:30 AM EDT Nurse Only Ancillary [facility] 200 [facility] [place] [address] Im, Nurse Annual Wellness [address] [place] [address] Health Maintenance Due Date Last Done Comments [...] this encounter Visit Diagnoses Diagnosis COPD, group B, by GOLD 2017 classification ([facility]) documented in this encounter Care Teams Newspaper Editor Managing Relationship Specialty Start Date End Date Chavez Olivera MD [address] [place] [address] PCP - General Internal Medicine 08/12/12 documented as of this encounter
--- OUTSIDE RECORDS SUMMARY | 2023-08-01 20:05 | External Medical Summary | Summary of Care ---
Author Name Unknown Organization [facility] Address [address] [place] [address] Phone [phone] Care Team Providers Care Paraffin Plant Operator Name Role Phone Chavez Francois MD Primary Care Provider + Reason for Referral * Evaluate & Treat - Unlimited Visits (Within 30 days (routine)) - Authorized Specialty Diagnoses / Procedures Referred By Contkeegan t Referred To Contact Dermatology Diagnoses Skin lesion Chavez Francois MD [address] [place] [id number] Referral ID Status Reason Start Date Expiration Date Visits Requested Visits Authorized [id number] Authorized Specialty Services Required 07/24/[phone] Question Answer Referral Priority Within 30 days (routine) [facility] should this appointment be scheduled[facility] Are you referring the patient for Mohs Surgery and have a current positive skin cancer biopsy result? No What is the reason for the patient referral? Rash/Skin Check/Eval of Lesion or Mole Reason for Visit * Reason Comments Follow Up 6 month follow up - pt denied any new concerns Encounter Details Date Type Department Care Team (Latest Contact Info) Description 07/24/2023 10:40 AM EDT Office Visit General Internal Medicine [place] [address] [place] [address] Chavez Francois MD [address] [facility] [place] [address] HTN, goal below 140/90*; COPD, moderate (HCC); Chronic rhinitis; Loss of weight; Respiratory bronchiolitis interstitial lung disease (HCC); Mixed hyperlipidemia; Lung nodule; Tobacco use disorder; COPD, group D, by GOLD 2017 classification ([facility]); Skin lesion; Elevated prostate specific antigen (PSA) Allergies Active Allergy Reactions Criticality Noted Date Comments Bee Venom 10/21/2014 Cefuroxime Axetil Rash Medium 08/12/2012 Food (See Comments) Diarrhea 08/01/2022 ALL nuts Nutritional Supplements Edema airway High 10/20/2012 documented as of this encounter (statuses as of 07/24/2023) Medications Medication Sig Dispensed Refills Start Date [...] :COPD, group D, by GOLD 2017 classification ([facility]) INHALE 3 ML (ONE VIAL) [...] with CKD (chronic kidney disease) stage III ([facility]) TAKE 1 TABLET BY MOUTH IN THE MORNING 100 Tablet 2 01/25/2023 Active Albuterol Sulfate HFA 108 (90 Base) MCG/ACT Inhalation Aerosol SolutionIndications :COPD, group B, by GOLD 2017 classification ([facility]) INHALE 2 PUFFS BY MOUTH EVERY 4 HOURS NEEDED FOR COUGH, SHORTNESS OF BREATH OR WHEEZING. 18 g 11 05/22/2023 5 Active Trelegy Ellipta 100-62.5-25 MCG/ACT Aerosol Powder Breath Activated (Fluticasone-Umecli dinium-Vilanterol)I ndications:COPD, group D, by GOLD 2017 classification ([facility]) Inhale 1 Puff by mouth in the morning. Rinse mouth and gargle with water after use.. 60 Each 11 06/24/2023 Active Fluticasone Propionate 50 MCG/ACT Nasal Suspension (Flonase)Indication s:COPD, moderate (HCC),Chronic rhinitis Administer 2 Sprays into each nostril in the morning. 16 g 2 07/24/2023 Active fluticasone (FLONASE) 50 MCG/ACT nasal sprayIndications:CO PD, moderate (HCC),Chronic rhinitis Administer 2 Sprays into each nostril daily. 16 g 2 09/14/2019 Discontinue d(Refill) documented as of this encounter (statuses as of 07/24/2023) Active Problems Problem Noted Date Diagnosed Date [...] as of this encounter (statuses as of 07/24/2023) Resolved Problems Problem Noted Date Diagnosed Date [...] as of this encounter (statuses as of 07/24/2023) Immunizations Name Administration Dates Next Due COVID-19 [...] money to buy more. Never true 11/13/19 Within the past 12 months, t he [...] Sign Reading Time Taken Comments Blood Pressure 130/70 07/24/2023 10:13 AM EDT Pulse 86 07/24/2023 10:13 AM EDT Temperature 35.2 C (95.3 F) 07/24/2023 10:13 AM E DT Respiratory Rate - - Oxygen Saturation 98% 07/24/2023 10:13 AM EDT Inhaled Oxygen Concentration - - Weight 46.3 kg (102 lb 1.6 oz) 07/24/2023 10:13 AM EDT Height 168.9 cm (5' 6.5") 07/24/2023 10:13 AM ED T Body Mass Index 16.23 07/24/2023 10:13 AM EDT documented in this encounter Progress Notes * Chavez Francois MD - 07/24/2023 10:33 AM EDT Chief Complaint Patient presents with Follow Up 6 month follow up - pt denied any new concerns SUBJECTIVE: Sukumar Andrews is a 77 year old male with PMH as below who presents for follow up HTN, COPD, bronchiectasis, no cp, pressure. Has stable chronic avelar with hills, chronic cough stable, still sees pulmonary, using inhalers, still smoking still not quite ready to quit. Urinating ok. He notes he is eating well, appetite is good, has multiple meals a day "and even eat before I go to bed" Not using ensure anymore. Has access to food when I ask. No n/v/d. 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 hydroCHLOROthiazide [...] to the Emergency room. 2 Each 3 Losartan Potassium 50 MG Oral Tablet (Cozaar) TAKE 1 TABLET BY MOUTH IN THE MORNING 100 Tablet 2 Albuterol Sulfate HFA 108 (90 Base) MCG/ACT Inhalation Aerosol Solution INHALE 2 PUFFS BY MOUTH EVERY 4 HOURS NEEDED FOR COUGH, SHORTNESS OF BREATH OR WHEEZING. 18 g 11 Trelegy Ellipta 100-62.5-25 MCG/ACT Aerosol Powder Breath Activated (Tomlopmstcg-Vejwqjqzkbjo-Ivvbfrnfug) Inhale 1 Puff by mouth in the morning. Rinse mouth and gargle with water after use.. 60 Each 11 Fluticasone Propionate 50 MCG/ACT Nasal Suspension (Flonase) Administer 2 Sprays into each nostril in the morning. 16 g 2 No current facility-administered medications for this visit. Review of patient's allergies indicates: Allergen Reactions Nutritional Supplements Edema airway Cefuroxime Axetil Rash Bee Venom Food (See Comments) Diarrhea ALL nuts Health Maintenance Due Topic Date Due Zoster Vaccines (1 of 2) Never done DTaP,Tdap,and Td Vaccines (2 - Td or Tdap) 08/12/2017 DISCUSS TOBACCO CESSATION (REFER TO SMARTSET #0781) 11/09/2022 Influenza Vaccine (FLU shot) (1) Never done COVID-19 Vaccine ( - 2022- season) 2022 O2 ASSESSMENT COMPLETED IN PAST YEAR FOR COPD 2023 ROS: CONSTITUTIONAL: No weakness, No fatigue, and No fevers, sweats, or chills EYE: No recent significant change in vision, No eye pain, redness, discharge, and No diplopia EARS: No ear pain, No drainage, No tinnitus or vertigo, and No recent change in hearing PULMONARY: No recent change in breathing CARDIOVASCULAR: No chest pain, No orthopnea, No paroxysmal nocturnal dyspnea, No edema, No palpitations, and No syncope GASTROINTESTINAL: No abdominal pain, No change in bowel habits, No significant heartburn, No significant change in appetite, No nausea, vomiting, diarrhea, or constipation, No hematemesis, No blood in stools or black tarry stools, No abdominal bloating or early satiety, and No dysphagia ALL OTHER SYSTEMS NEGATIVE I reviewed social, PMH, PSH, and family history and updated where needed. 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 Smoked up to 1.5 packs cigarettes per day. Presently smoking 1/2 ppd cigarettes Vaping Use Vaping Use: Never used Substance and Sexual Activity Alcohol use: Not Currently Drug use: Not Currently Sexual activity: Not Currently Other Topics Concern Not on file Social History Narrative No pets No mold Lives alone Social Determinants of Health Financial Resource Strain: Not on file Food Insecurity: No Food Insecurity (11/12/2022) Hunger Vital Sign Worried About Running Out of Food in the Last Year: Never true Ran Out of Food in the Last Year: Never true Transportation Needs: Not on file Physical Activity: Not on file Stress: Not on file Social Connections: Not on file Intimate Partner Violence: Not on file Housing Stability: Not on file Past Medical History: Diagnosis Date Benign hypertension with CKD (chronic kidney disease) stage III (HCC) 03/16/2020 Blind left eye Bronchiectasis without complication (HCC) 07/29/2019 Chronic rhinitis 10/23/2016 COPD (chronic obstructive pulmonary disease) ([facility]) COPD, moderate (HCC) 02/12/2013 Diverticulosis Elevated prostate specific antigen (PSA) 09/13/2020 Former tobacco use 03/16/2020 HTN, goal below 140/90 09/18/2012 ILD (interstitial lung disease) ([facility]) Lung nodule Mixed hyperlipidemia 10/03/2017 Respiratory bronchiolitis interstitial lung disease (HCC) 07/29/2019 Tobacco abuse 08/12/2012 Past Surgical History: Procedure Laterality Date COLONOSCOPY, DIAGNOSTIC (RECTUM) 11/05/2014 polyp removed not retrieved, diverticulosis, repeat 5 yrs/COLONOSCOPY FLEXIBLE PROXIMAL DIAGNOSTIC performed by Billy Campbell MD at ENDOSCOPY [facility] COLONOSCOPY, DIAGNOSTIC (RECTUM) 11/04/2019 Stricture in the sigmoid colon / COLONOSCOPY FLEXIBLE PROXIMAL DIAGNOSTIC performed by Billy Campbell MD at ENDOSCOPY [facility] COLONOSCOPY, DIAGNOSTIC (RECTUM) 08/08/2022 diverticulosis / COLONOSCOPY FLEXIBLE PROXIMAL DIAGNOSTIC performed by Al Ramsay MD at ENDOSCOPY [facility] EGD, FLEXIBLE, DIAGNOSTIC 08/08/2022 Schatzki ring, hiatal hernia, normal bx / ESOPHAGOGASTRODUODENOSCOPY (EGD), FLEXIBLE, TRANSORAL, DIAGNOSTIC performed by Al Ramsay MD at ENDOSCOPY [facility] INCISION OF COLON 04/29/2004 bilateral inguinal INJECT DX/THER SUBSTANCE INTERLAMINAR CERVICAL/THORACIC W IMAGE GUIDE 08/21/2018 INJECTION SPINE LUMBAR CERVICAL OR THORACIC performed by Jeferson Rodríguez DO at OR [facility] INJECT DX/THER SUBSTANCE INTERLAMINAR CERVICAL/THORACIC W IMAGE GUIDE 09/04/2018 INJECTION SPINE LUMBAR CERVICAL OR THORACIC performed by Jeferson Rodríguez DO at OR [facility] PROCEDURE - GENERAL Left 01/08/2022 left inguinal hernia repair by Dr William Lambert REMOVE GALLBLADDER 10/11/[address] Ar[facility] 10/11/12 SURGICAL PROCEDURE ONLY Right 04/16/2022 open repair right inguinal hernia with mesh Family History Problem Relation Age of Onset Stroke Sister Heart Disorder Sister No Known Problems Sister No Known Problems Sister Heart Disorder Brother Other (stent) Brother OBJECTIVE: PHYSICAL EXAM: BP 130/70 | Pulse 86 | Temp 35.2 C (95.3 F) (Tympanic) | Ht 1.689 m (5' 6.5") | Wt 46.3 kg (102lb 1.6 oz) | SpO2 98% | BMI 16.23 kg/m | BSA 1.47 m General: alert, healthy, and no distress Head: Normocephalic, No masses, lesions, tenderness or abnormalities Eye Exam: conjunctiva are pink and non-injected, sclera clear Heart: regular rate & rhythm, no murmur, no gallops, PMI non-displaced, S-1 normal, and S-2 normal Lungs: normal respiratory rate and rhythm, lungs clear to auscultation Psych: normal affect, no flight of ideas or tangential thought, good eye contact, no pressured speech Ears: raised fleshy bump on right ear, no open wound 03/18/23 urology: Findings reviewed with the patient. I am not suspicious that the patient has occult prostate cancercausing his weight loss. Digital rectal exam is benign, PSA is fluctuate in the past. Will check a PSA free and total today and in 6 months. Patient can contact us sooner with any urinary deterioration. Above content is personally reviewed. Patient vocalizes good understanding of the treatment plan. ASSESSMENT: I10 HTN, goal below 140/90 (primary encounter diagnosis) J44.9 COPD, moderate (HCC) J31.0 Chronic rhinitis R63.4 Loss of weight J84.115 Respiratory bronchiolitis interstitial lung disease (HCC) E78.2 Mixed hyperlipidemia R91.1 Lung nodule F17.200 Tobacco use disorder J44.9 COPD, group D, by GOLD 2017 classification (HCC) L98.9 Skin lesion R97.20 Elevated prostate specific antigen (PSA) PLAN: HTN, goal below 140/90 (Primary) - COMPREHENSIVE METABOLIC PANEL; Future; Expected date: 07/24/2023 - CBC WITH WBC DIFFERENTIAL; Future; Expected date: 07/24/2023 Cont losartan, hctz COPD, moderate (HCC) - Fluticasone Propionate 50 MCG/ACT Nasal Suspension (Flonase); Administer 2 Sprays into each nostril in the morning. Cont trelegy, albuterol Has duoneb Sees pulm Smoking cessation discussed, not ready Chronic rhinitis - Fluticasone Propionate 50 MCG/ACT Nasal Suspension (Flonase); Administer 2 Sprays into each nostril in the morning. Loss of weight - COMPREHENSIVE METABOLIC PANEL; Future; Expected date: 07/24/2023 - CBC WITH WBC DIFFERENTIAL; Future; Expected date: 07/24/2023 Resume ensure Had extensive work up prior, discussed eating Follow Respiratory bronchiolitis interstitial lung disease (HCC) Cont care per pulm Mixed hyperlipidemia Cont lipitor Lung nodule Sees pulm Tobacco use disorder As above COPD, group D, by GOLD 2017 classification (HCC) As above Skin lesion - DERMATOLOGY REFERRAL OP Discussed derm, wanted sooner in [place] for evaul, he declines Follow Elevated prostate specific antigen (PSA) Appreciate urology aid Follow Up: Return in about 6 months (around 01/24/2024), or if symptoms worsen or fail to improve, for Labs Today. | For: Labs Today Chavez Francois MD documented in this encounter Nursing Notes * Meg Antonio MED ASSIST - 07/24/2023 10:16 AM EDT Chief Complaint Patient presents with Follow Up 6 month follow up - pt denied any new concerns Patient has been verbally educated on the need or importance of Immunizations: shingles, flu, and tdap and has declined topic(s). documented in this encounter Plan of Treatment Upcoming Encounters Date Type Department Care Team (Late st Contact Info) Description 07/24/2023 11:20 AM EDT Laboratory Laboratory [facility] [place] [address] [place] [id number] Zari, Lab Scene [address] [facility] [place] [address] HTN, goal below 140/90; Loss of weight 09/30/2023 3:30 PM EDT Office Visit Urology, [facility] [address] [facility] [place] [address] Trae Montejo MD [address] [facility] [address] [place] [address] 11/19/2023 10:30 AM EDT Nurse Only Ancillary [facility] 200 [facility] [place] [address] Im, Nurse Annual Wellness [facility] [address] [facility] [place] [address] 02/21/2024 10:00 AM EDT Office Visit General Internal Medicine [facility] [address] [facility] [place] [address] Chavez Francois MD 200 [facility] [place] [address] 03/09/2024 9:00 AM EST Imaging Radiology [facility] 1st [facility] [address] [facility] [place] [address] Pending Results Name Type Priority Associated Diagnoses Date /Time COMPREHENSIVE METABOLIC PANEL Lab Routine HTN, goal below 140/90 Loss of weight 07/24/2023 10:34 AM EDT Scheduled Orders Name Type Priority Associated Diagnoses Orde r Schedule COMPREHENSIVE METABOLIC PANEL Lab Routine HTN, goal below 140/90 Loss of weight Expected: 07/24/2023 (Approximate), Expires: 07/23/2024 Scheduled Referrals Name Type Priority Associated Diagnoses Orde r Schedule DERMATOLOGY REFERRAL OP Referral Within 30 days (routine) Skin lesion Ordered: 07/24/2023 Health Maintenance Due Date Last Done Comments Zoster Vaccines (1 of 2) 08/08/1997 DTaP,Tdap,and Td Vaccines (2 - Td or Tdap) 08/12/2017 08/13/2007 DISCUSS TOBACCO CESSATION (REFER TO SMARTSET #3291) 11/09/2022 11/09/2021, 11/16/2020, 2014 (Discussed) COVID-19 Vaccine (2022- season) 2022 11/13/2021, 04/12/2021, 08/24/2020, Additional history [...] as of this encounter Visit Diagnoses Diagnosis HTN, goal below 140/90- Primary Unspecified essential hypertension COPD, moderate (HCC) Chronic airway obstruction, not elsewhere classified Chronic rhinitis Loss of weight 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
--- OUTSIDE RECORDS SUMMARY | 2023-08-01 20:05 | External Medical Summary | Summary of Care ---
Author Name Unknown Organization [facility] Address [address] [place] [address] Phone [phone] Care Team Providers Care Citizen Participation Specialist Name Role Phone Chavez Olivera MD Primary Care Provider + Reason for Visit * Reason Comments Medication Refill Encounter Details Date Type Department Care Team (Late st Contact Info) Description 02/25/2023 Refill Pharmacy, [facility] [address] [facility] [place] [address] Vipul Johnson MD [address] [place] [address] Allergies Active Allergy Reactions Criticality Noted Date Comments Bee Venom 10/21/2014 Cefuroxime Axetil Rash Medium 08/12/2012 Food (See Comments) Diarrhea 08/01/2022 ALL nuts Nutritional Supplements Edema airway High 10/20/2012 documented as of this encounter (statuses as of 02/25/2023) Medications Medication Sig Dispensed Refills Start Date [...] :COPD, group D, by GOLD 2017 classification ([facility]) INHALE 3 ML (ONE VIAL) VIA NEBULIZER FOUR TIMES A DAY NEEDED 360 mL 3 09/25/2022 Active Albuterol Sulfate HFA 108 (90 Base) MCG/ACT Inhalation Aerosol SolutionIndications :COPD, group B, by GOLD 2017 classification ([facility]) INHALE 2 PUFFS BY MOUTH EVERY 4 HOURS NEEDED FOR COUGH, SHORTNESS OF BREATH OR WHEEZING. 18 g 11 11/06/2022 11/06/19 24 Active EPINEPHrine 0.3 MG/0.3ML Injection Solution Auto-injector [...] with CKD (chronic kidney disease) stage III ([facility]) TAKE 1 TABLET BY MOUTH IN THE MORNING 100 Tablet 2 01/25/2023 Active Trelegy Ellipta 100-62.5-25 MCG/ACT Aerosol Powder Breath Activated (Fluticasone-Umecli dinium-Vilanterol) Inhale 1 Puff by mouth in the morning. 60 Each 3 02/25/2023 Active Fluticasone-Umeclid in-Vilant 200-62.5-25 MCG/ACT Aerosol Powder Breath Activated (Trelegy Ellipta)Indications :COPD, group D, by GOLD 2017 classification ([facility]),Respiratory bronchiolitis interstitial lung disease ([facility]) Inhale 1 Puff by mouth in the morning. [address] 3 08/31/2022 02/26/20 23 Discontinu ed(Refill) Trelegy Ellipta 100-62.5-25 MCG/ACT Aerosol Powder Breath Activated (Fluticasone-Umecli dinium-Vilanterol) Inhale 1 Puff by mouth in the morning. 60 Blister Dosing Unit 3 10/23/2022 02/26/20 23 Discontinu ed(Refill) documented as of this encounter (statuses as of 02/25/2023) Active Problems Problem Noted Date Diagnosed Date [...] as of this encounter (statuses as of 02/25/2023) Resolved Problems Problem Noted Date Diagnosed Date [...] Per CKD protocol Abnormal CT scan, chest 07/29/20192 04/2020 COPD, group B, by GOLD 2017 classification 10/06/2018 06/10/2019 Overview: Per COPD GOLD Classification HTN, goal below 130/80 03/19/201709/20 Wheeze 10/23/2016 09/20/2017 HTN, goal below 150/90 08/09/201403/19 COPD, moderate 02/12/2013 02/12/2013 COPD, mild 02/12/2013 02/12/2013 COPD, moderate 02/12/2013 10/08/2018 Overview: Per COPD GOLD Classification documented as of this encounter (statuses as of 02/25/2023) Immunizations Name Administration Dates Next Due COVID-19 [...] encounter Miscellaneous Notes * Telephone Encounter - Cahvez Olivera MD - 02/25/2023 2:43 PM EDTSigned Prescriptions: Disp Refills Trelegy Ellipta 100-62.5-25 MCG/ACT Aeroso*60 Bli*3 Sig: Inhale 1 Puff by mouth in the morning. Authorizing Provider: CHAVEZ OLIVERA * Telephone Encounter - Tatiana Ya LPN - 02/25/2023 2:38 PM EDTPending Prescriptions: Disp Refills Trelegy Ellipta 100-62.5-25 MCG/ACT Aeroso*60 Bli*3 Sig: Inhale 1 Puff by mouth in the morning. * Telephone Encounter - Tatiana Ya LPN - 02/25/2023 2:37 PM EDT Did you pend patient's preferred pharmacy and medication before forwarding?yes [facility] Pending Prescriptions: Disp Refills Trelegy Ellipta 100-62.5-25 MCG/ACT Aeros*60 Bli*3 Sig: Inhale 1 Puff by mouth in the morning. Last Visit: Visit date not found (in office), Visit date not found (telemedicine) Next Visit: Visit date not found If no future appointments scheduled, and last appointment is greater than a year ago, please schedule patient for a follow-up appointment Last date the medication was ordered: 10/23/22 Is this request for a controlled substance?No Urine Drug Screen:No results found for this or any previous visit. Patient Phone Numbers Labs: Lab Results Component Value Date/Time CREAT 0.9 01/10/2023 09:39 AM CREAT 1.06 07/07/2022 12:00 AM CREAT 1.2 03/16/2020 09:26 AM POTASSIUM 4.2 01/10/2023 09:39 AM POTASSIUM 3.3 (A) 07/07/2022 12:00 AM POTASSIUM 3.9 03/16/2020 09:26 AM TSH 1.46 11/30/2022 10:24 AM TSH 2.25 08/14/2012 07:01 AM LDLCALC 29 11/30/2022 10:24 AM LDLCALC 40 03/16/2020 09:26 AM LDLDIRECT NOT APPLICABLE 03/16/2020 09:26 AM LDLDIRECT 101 02/08/2014 08:12 AM ALT 19 11/30/2022 10:24 AM ALT 16 03/16/2020 09:26 AM HGBA1C 5.7 (H) 07/17/2022 10:48 AM documented in this encounter Plan of Treatment Upcoming Encounters Date Type Department Care Team (Late st Contact Info) Description 03/05/2023 10:15 AM EST Imaging Radiology [facility] 1st [facility] [address] [facility] [place] [address] 03/18/2023 3:30 PM EST Office Visit Urology, [facility] [address] [facility] [place] [address] Trae Montejo MD [address] [facility] [address] [place] [address] 03/20/2023 12:20 PM EST Office Visit Pulmonary Medicine, [facility] [address] [facility] [place] [address] Pacheco Martino, DO [address] [facility] [place] [address] 07/24/2023 10:40 AM EDT Office Visit General Internal Medicine [facility] [address] [facility] [place] [address] Chavez Olivera MD [address] [facility] [place] [address] 11/19/2023 10:30 AM EDT Nurse Only Ancillary [facility] [address] [facility] [place] [address] Im, Nurse Annual Wellness [facility] [address] [facility] [place] [address] Health Maintenance Due Date Last Done Comments [...] filedocumented as of this encounter Care Teams Citizen Participation Specialist Relationship Specialty Start Date End Date Chavez Olivera MD [address] [place] [address] PCP - General Internal Medicine 08/12/12 documented as of this encounter
--- OUTSIDE RECORDS SUMMARY | 2023-08-01 20:05 | External Medical Summary | Summary of Care ---
Author Name Unknown Organization [facility] Address [address] [facility] [address] Phone [phone] Care Team Providers Care Claims Configuration Analyst Name Role Phone Chavez Francois MD Primary Care Provider + Reason for Visit * Reason Onset Date Comments Health Maintenance 07/05/2023 Encounter Details Date Type Department Care Team (Late st Contact Info) Description 07/05/2023 Telephone General Internal Medicine [facility] 200 [place] [address] Chavez Francois MD 200 [facility] [address] Health Maintenance Allergies Active Allergy Reactions Criticality Noted Date Comments Bee Venom 10/21/2014 Cefuroxime Axetil Rash Medium 08/12/2012 Food (See Comments) Diarrhea 08/01/2022 ALL nuts Nutritional Supplements Edema airway High 10/20/2012 documented as of this encounter (statuses as of 07/05/2023) Medications Medication Sig Dispensed Refills Start Date End Date Status fluticasone (FLONASE) 50 MCG/ACT nasal sprayIndications:[place] D, moderate (HCC),Chronic rhinitis Administer 2 Sprays [...] COPD, group D, by GOLD 2017 classification ([facility]) INHALE 3 ML (ONE VIAL) VIA [...] with CKD (chronic kidney disease) stage III ([facility]) TAKE 1 TABLET BY MOUTH IN THE MORNING 100 Tablet 2 01/25/2023 Active Albuterol Sulfate HFA 108 (90 Base) MCG/ACT Inhalation Aerosol SolutionIndications: COPD, group B, by GOLD 2017 classification ([facility]) INHALE 2 PUFFS BY MOUTH EVERY 4 HOURS NEEDED FOR COUGH, SHORTNESS OF BREATH OR WHEEZING. 18 g 11 05/22/2023 5 Active Trelegy Ellipta 100-62.5-25 MCG/ACT Aerosol Powder Breath Activated (Fluticasone-Umeclid inium-Vilanterol)Ind ications:COPD, group D, by GOLD 2017 classification ([facility]) Inhale 1 Puff by mouth in the morning. Rinse mouth and gargle with water after use.. 60 Each 11 06/24/2023 Active documented as of this encounter (statuses as of 07/05/2023) Active Problems Problem Noted Date Diagnosed Date [...] as of this encounter (statuses as of 07/05/2023) Resolved Problems Problem Noted Date Diagnosed Date [...] as of this encounter (statuses as of 07/05/2023) Immunizations Name Administration Dates Next Due COVID-19 [...] encounter Miscellaneous Notes * Telephone Encounter - Marilu Casillas LPN - 07/05/2023 12:56 PM EST Care Gaps Comprehensive Care Outreach Last Office/Telemedicine Visit: 01/10/2023 (in office), Visit date not found (telemedicine) Next Office Visit: 07/24/2023 Hemoglobin AIC Results: Lab Results Component Value Date/Time HEMOGLOBIN A1C - [facility] 5.7 (H) 07/17/2022 10:48 AM HEMOGLOBIN A1C - [facility] 5.6 11/09/2021 08:32 AM BP Readings from Last 1 Encounters: 06/24/23 132/76 Reviewed Health Maintenance below: Health Maintenance Topic Date Due Zoster Vaccines (1 of 2) Never done DTaP,Tdap,and Td Vaccines (2 - Td or Tdap) 08/12/2017 DISCUSS TOBACCO CESSATION (REFER TO SMARTSET #8621) 11/09/2022 Influenza Vaccine (FLU shot) (1) Never done COVID-19 Vaccine ( season) 2022 O2 ASSESSMENT COMPLETED IN PAST YEAR FOR COPD 2023 Depression Screening 11/13/2023 Care Gap Outreach Action Taken: Outreach not indicated documented in this encounter Plan of Treatment Upcoming Encounters Date Type Department Care Team (Late st Contact Info) Description 07/24/2023 10:40 AM EDT Office Visit General Internal Medicine [facility] 200 [facility] [place] [address] Chavez Francois MD 200 [facility] [place] [address] 09/30/2023 3:30 PM EDT Office Visit Urology, [facility] 132 [facility] [place] [address] Trae Montejo MD [address] [place] [address] 11/19/2023 10:30 AM EDT Nurse Only Ancillary [facility] 200 [facility] [place] [address] Im, Nurse Annual Wellness [place] [address] [place] [address] 03/09/2024 9:00 AM EST Imaging Radiology [address] 132 [facility] [place] [address] Health Maintenance Due Date Last Done Comments Zoster Vaccines (1 of 2) 08/08/1997 DTaP,Tdap,and Td Vaccines (2 - Td or Tdap) 08/12/2017 08/13/2007 DISCUSS TOBACCO CESSATION (REFER TO SMARTSET #3291) 11/09/2022 11/09/2021, 11/16/2020, 2014 (Discussed) COVID-19 Vaccine ( - season) 2022 11/13/2021, 04/12/2021, 08/24/2020, Additional history exists Influenza Vaccine (FLU shot) (#1) 2022 O2 ASSESSMENT COMPLETED IN PAST YEAR FOR COPD 2023 08/08/2022 Depression Screening 11/13/2023 11/12/2022, 08/10/19 15 GFR 01/11/2024 01/10/2023, 0807/2022, 07/17/2022, Additional history exists Albumin/Creatinine Ratio 01/10/2026 [...] filedocumented as of this encounter Care Teams Claims Configuration Analyst Relationship Specialty Start Date End Date Chavez Francois MD 200 [facility] [place] [address] PCP - General Internal Medicine 08/12/12 documented as of this encounter
--- OUTSIDE RECORDS SUMMARY | 2023-08-01 20:05 | External Medical Summary | Summary of Care ---
Author Name Unknown Organization [facility] Address [address] [place] [address] Phone [phone] Care Team Providers Care Call Worker Name Role Phone Chavez Francois MD Primary Care Provider + Reason for Visit * Reason Comments Outpatient Testing Encounter Details Date Type Department Care Team (Late st Contact Info) Description 07/24/2023 11:20 AM EDT Laboratory Laboratory [facility] [address] [place] [address] [facility] [address] [place] [address] HTN, goal below 140/90; Loss of weight Allergies Active Allergy Reactions Criticality Noted Date [...] D, by GOLD 2017 classification ([facility]) INHALE 3 ML (ONE VIAL) VIA [...] Active Losartan Potassium 50 MG Oral Tablet (Cozaar)Indications: HTN, goal below 140/90,Benign hypertension with CKD (chronic kidney disease) stage III ([facility]) TAKE 1 TABLET BY MOUTH IN THE MORNING 100 Tablet 2 01/25/2023 Active Albuterol Sulfate HFA 108 (90 Base) MCG/ACT Inhalation Aerosol SolutionIndications: COPD, group B, by GOLD 2017 classification ([facility]) INHALE 2 PUFFS BY MOUTH EVERY 4 HOURS NEEDED FOR COUGH, SHORTNESS OF BREATH OR WHEEZING. 18 g 11 05/22/2023 05/21/2024 Active Trelegy Ellipta 100-62.5-25 MCG/ACT Aerosol Powder Breath Activated (Fluticasone-Umeclid inium-Vilanterol)Ind ications:COPD, group D, by GOLD 2017 classification ([facility]) Inhale 1 Puff by mouth in the morning. Rinse mouth and gargle with water after use.. 60 Each 11 06/24/2023 Active Fluticasone Propionate 50 MCG/ACT Nasal Suspension (Flonase)Indications :COPD, moderate ([facility]),Chronic rhinitis Administer 2 Sprays into each nostril in the morning. 16 g 2 07/24/2023 Active documented as of this encounter (statuses [...] CKD protocol Abnormal CT scan, chest 07/29/2019 0704/2020 COPD, group B, by GOLD 2017 classification [...] on file documented as of this encounter Plan of Treatment Upcoming Encounters Date Type Department Care Team (Late st Contact Info) Description 09/30/2023 3:30 PM EDT Office Visit Urology, [facility] 132 [facility] [place] [address] Trae Montejo MD [address] [place] [address] 11/19/2023 10:30 AM EDT Nurse Only Ancillary [facility] [address] [place] [address] Im, Nurse Annual Wellness [facility] 200 [facility] [place] [address] 02/21/2024 10:00 AM EDT Office Visit General Internal Medicine [facility] 200 [facility] [place] [address] Chavez Francois MD 200 [facility] [place] [address] 03/09/2024 9:00 AM EST Imaging Radiology [address], [place] [address] [address] Pending Results Name Type Priority Associated Diagnoses Date /Time COMPREHENSIVE METABOLIC PANEL Lab Routine HTN, goal below 140/90 Loss of weight 07/24/2023 10:34 AM EDT Health Maintenance Due Date Last Done Comments [...] Not on filedocumented as of this encounter Procedures Procedure Name Priority Date/Time Associated Diagnosis Comments DIFFERENTIAL, AUTOMATED Routine 07/24/2023 10:34 AM EDT HTN, goal below 140/90 Loss of weight CBC Routine 07/24/2023 10:34 AM EDT HTN, goal below 140/90 Loss of weight CBC Routine 07/24/2023 10:34 AM EDT HTN, goal below 140/90 Loss of weight documented in this encounter Results * (ABNORMAL) DIFFERENTIAL, AUTOMATED (07/24/2023 10:34 AM EDT) WBC 10.84(H) 4.00 - 10.80 K/uL 07/24/2023 10:46 AM EDT [facility] Neutrophils % 76.4(H) 40.0 - 75.0 % 07/24/2023 10:46 AM EDT [facility] Lymphocytes % 12.5(L) 18.0 - 42.0 % 07/24/2023 10:46 AM EDT [facility] Monocytes % 8.5 1.0 - 11.0 % 07/24/2023 10:46 AM EDT [facility] Eosinophils % 2.2 0.0 - 6.0 % 07/24/2023 10:46 AM EDT [facility] Basophils % 0.4 0.0 - 2.0 % 07/24/2023 10:46 AM EDT [facility] Absolute Neutrophils 8.28(H) 1.80 - 7.70 K/uL 07/24/2023 10:46 AM EDT [facility] Absolute Lymphocytes 1.36 1.00 - 4.80 K/ul 07/24/2023 10:46 AM EDT [facility] Absolute Monocytes 0.92 0.00 - 1.10 K/uL 07/24/2023 10:46 AM EDT [facility] Absolute Eosinophils 0.24 0.00 - 0.70 K/uL 07/24/2023 10:46 AM EDT [facility] Absolute Basophils 0.04 0.00 - 0.20 K/uL 07/24/2023 10:46 AM EDT [facility] Blood Venous blood specimen / Unknown Venipuncture / Unknown 07/24/2023 10:34 AM EDT 07/24/2023 10:34 AM EDT Chavez Francois MD LAB BLOOD ORDERA BLES [facility] [address] [place] [address] * (ABNORMAL) CBC (07/24/2023 10:34 AM EDT) WBC 10.84(H) 4.00 - 10.80 K/uL 07/24/2023 10:46 AM EDT [facility] RBC 4.66 4.50 - 5.25 M/uL 07/24/2023 10:46 AM T [facility] HGB 13.2(L) 14.0 - 16.8 g/dL 07/24/2023 10:46 AM EDT [facility] HCT 40.7 40.0 - 48.4 % 07/24/2023 10:46 AM EDT [facility] MCV 87.3 82.0 - 99.5 fL 07/24/2023 10:46 AM EDT [facility] MCH 28.3 27.0 - 34.0 pg 07/24/2023 10:46 AM EDT [facility] MCHC 32.4 32.0 - 36.0 g/dL 07/24/2023 10:46 AM EDT [facility] RDW 16.2 11.5 - 15.5 % 07/24/2023 10:46 AM EDT [facility] PLT 278 140 - 400 K/uL 07/24/2023 10:46 AM EDT [facility] MPV 9.7 6.6 - 11.1 fL 07/24/2023 10:46 AM EDT [facility] Blood Venous blood specimen / Unknown Venipuncture / Unknown 07/24/2023 10:34 AM EDT 07/24/2023 10:34 AM EDT Chavez Francois MD LAB BLOOD ORDERA BLES [facility] [address] documented in this encounter Visit Diagnoses Diagnosis HTN, goal below 140/90 Unspecified essential hypertension Loss of weight documented in this encounter Care Teams Call Worker Relationship Specialty Start Date End Date [facility]avez Francois MD [facility] [address] PCP - General Internal Medicine 08/12/12 documented as of this encounter
--- OUTSIDE RECORDS SUMMARY | 2023-08-01 20:05 | External Medical Summary ---
Author Name Unknown Address Unknown Organization [id number]:[place] [address] Laboratory Report Ordering Provider Test Date Status JOSELIN THOMAS 07/24/2023 10:34:43 Final Observation Date Value Abnormality Reference (Units ) Status WBC, Total 07/24/2023 10:34:43 10.84 Above high normal 4 .00-10.80 (K/uL) Final RBC 07/24/2023 10:34:43 4.66 4.50-5.25 (M/uL) Final Hemoglobin 07/24/2023 10:34:43 13.2 Below low normal 14 .0-16.8 (g/dL) Final HCT 07/24/2023 10:34:43 40.7 40.0-48.4 (%) Final MCV 07/24/2023 10:34:43 87.3 82.0-99.5 (fL) Final MCH 07/24/2023 10:34:43 28.3 27.0-34.0 (pg) Final MCHC 07/24/2023 10:34:43 32.4 32.0-36.0 (g/dL) Final RDW 07/24/2023 10:34:43 16.2 11.5-15.5 (%) Final Platelets 07/24/2023 10:34:43 278 140-400 (K /uL) Final MPV 07/24/2023 10:34:43 9.7 6.6-11.1 ( fL) Final Performing Location [place] [address]
--- OUTSIDE RECORDS SUMMARY | 2023-08-01 20:05 | External Medical Summary | Summary of Care ---
Author Name Unknown Organization [facility] Address [address] [facility] [address] Phone [phone] Care Team Providers Care Powder And Primer Canning Leader Name Role Phone Chavez Francois MD Primary Care Provider + Reason for Visit * Reason Onset Date Comments Test Results 07/25/2023 Encounter Details Date Type Department Care Team (Late st Contact Info) Description 07/25/2023 Telephone General Internal Medicine [facility] 200 [place] [address] Chavez Francois MD 200 [facility] [address] Test Results Allergies Active Allergy Reactions Criticality Noted Date Comments Bee Venom 10/21/2014 Cefuroxime Axetil Rash Medium 08/12/2012 Food (See Comments) Diarrhea 08/01/2022 ALL nuts Nutritional Supplements Edema airway High 10/20/2012 documented as of this encounter (statuses as of 07/30/2023) Medications Medication Sig Dispensed Refills Start Date End Date Status Nebulizer System All-In-One Use as directed. 0 Active hydroCHLOROthiazide 25 MG Oral Tablet (Hydrodiuril)Indicat ions:HTN, goal below 140/90 TAKE 1 TABLET BY MOUTH DAILY. 90 Tablet 3 03/27/2021 Active Ipratropium-Albutero l 0.5-2.5 (3) MG/3ML Inhalation Solution (Duoneb)Indications: COPD, group D, by GOLD 2017 classification ([facility]) INHALE 3 ML (ONE VIAL) [...] with CKD (chronic kidney disease) stage III ([facility]) TAKE 1 TABLET BY MOUTH IN THE MORNING 100 Tablet 2 01/25/2023 Active Albuterol Sulfate HFA 108 (90 Base) MCG/ACT Inhalation Aerosol SolutionIndications: COPD, group B, by GOLD 2017 classification ([facility]) INHALE 2 PUFFS BY MOUTH EVERY 4 HOURS NEEDED FOR COUGH, SHORTNESS OF BREATH OR WHEEZING. 18 g 11 05/22/2023 05/21/2024 Active Trelegy Ellipta 100-62.5-25 MCG/ACT Aerosol Powder Breath Activated (Fluticasone-Umeclid inium-Vilanterol)Ind ications:COPD, group D, by GOLD 2017 classification ([facility]) Inhale 1 Puff by mouth in the morning. Rinse mouth and gargle with water after use.. 60 Each 11 06/24/2023 Active Fluticasone Propionate 50 MCG/ACT Nasal Suspension (Flonase)Indications :COPD, moderate ([facility]),Chronic rhinitis Administer 2 Sprays into each nostril in the morning. 16 g 2 07/24/2023 Active documented as of this encounter (statuses as of 07/30/2023) Active Problems Problem Noted Date Diagnosed Date [...] as of this encounter (statuses as of 07/30/2023) Resolved Problems Problem Noted Date Diagnosed Date [...] as of this encounter (statuses as of 07/30/2023) Immunizations Name Administration Dates Next Due COVID-19 [...] encounter Miscellaneous Notes * Telephone Encounter - Meg Antonio MED ASSIST - 07/30/2023 11:49 AM EDT Patient aware and verbalized understanding * Telephone Encounter - Kristal Neely RN - 07/25/2023 3:02 PM EDT ----- Message from Chavez Francois MD sent at 07/25/2023 8:27 AM EDT ----- Kidney, liver, sugar fine Wbc slightly high, hgb slightly low, want to recheck this 1 month to trend documented in this encounter Plan of Treatment Upcoming Encounters Date Type Department Care Team (Late st Contact Info) Description 09/30/2023 3:30 PM EDT Office Visit Urology, [facility] [address] [place] [address] Trae Monetjo MD [address] [place] [address] 11/19/2023 10:30 AM EDT Nurse Only Ancillary [facility] [address] [place] [address] Im, Nurse Annual Wellness [facility] [address] [place] [address] 02/21/2024 10:00 AM EDT Office Visit General Internal Medicine [facility] [address] [place] [address] Chavez Francois MD [address] [place] [address] 03/09/2024 9:00 AM EST Imaging Radiology [address] 132 [facility] [place] [address] Health Maintenance Due Date Last Done Comments Zoster Vaccines (1 of 2) 08/08/1997 DTaP,Tdap,and Td Vaccines (2 - Td or Tdap) 08/12/2017 08/13/2007 DISCUSS TOBACCO CESSATION (REFER TO SMARTSET #3291) 11/09/2022 11/09/2021, 11/16/2020, 2014 (Discussed) COVID-19 Vaccine ( season) 2022 11/13/2021, 04/12/2021, 08/24/2020, Additional history exists O2 ASSESSMENT COMPLETED IN PAST YEAR FOR COPD 2023 08/08/2022 Depression Screening 11/13/2023 11/12/2022, 08/10/19 15 Influenza Vaccine (FLU shot) (Season Ended) 2023 GFR 07/23/2024 07/24/2023, 12/28, 11/30/2022, Additional history [...] filedocumented as of this encounter Care Teams Powder And Primer Canning Leader Relationship Specialty Start Date End Date Chavez Francois MD 200 [place] [address] PCP - General Internal Medicine 08/12/12 documented as of this encounter
--- OUTSIDE RECORDS SUMMARY | 2023-08-01 20:05 | External Medical Summary ---
Author Name Unknown Address Unknown Organization [id number][facility] [place] [address] [place] [address] Laboratory Report Ordering Provider Test Date Status BRYCEFLETCHER 03/18/2023 16:10:24 Final Observation Date Value Abnormality Reference (Units ) Status PSA 03/18/2023 16:10:24 3.38 <4.10 (ng/ mL) Final Total PSA is within referenc e interval. Free PSA testing is not indicated. Performing Location [facility] [place] [facility] [address] [place] [address]
--- OUTSIDE RECORDS SUMMARY | 2023-08-01 20:05 | External Medical Summary ---
Author Name Unknown Address Unknown Organization K09:[facility] - 200 [facility] [place] [address] Laboratory Report Ordering Provider Test Date Status JOSELIN THOMAS 07/24/2023 10:34:43 Final Observation Date Value Abnormality Reference (Units ) Status BUN 07/24/2023 10:34:43 20 6-20 (mg/dL) Final Creatinine 07/24/2023 10:34:43 0.9 0.6-1.2 (mg/dL) Final Glomerular filtration rate/1.73 sq M.predicted [Volume Rate/Area] in Serum, Plasma or Blood by Creatinine-based formula (CKD-EPI) 07/24/2023 10:34:43 89 >=60 (mL/min) Final eGFR is calculated based on the CKD-EPI 2020 equation Sodium 07/24/2023 10:34:43 142 135-146 (m mol/L) Final Potassium 07/24/2023 10:34:43 4.0 3.5-5.1 (m mol/L) Final Cl 07/24/2023 10:34:43 104 98-107 (mm ol/L) Final CO2 07/24/2023 10:34:43 29 22-32 (mmo l/L) Final Anion gap 07/24/2023 10:34:43 9 7-15 (mmol /L) Final Glucose 07/24/2023 10:34:43 81 70-120 (mg /dL) Final Albumin 07/24/2023 10:34:43 4.0 3.8-5.0 (g /dL) Final AST (Aspartate aminotransferase) 07/24/2023 10:34:43 21 10-50 (U/L) Final Alk Phos 07/24/2023 10:34:43 90 35-130 (U/ L) Final Bilirubin, Total 07/24/2023 10:34:43 0.4 <=1 .2 (mg/dL) Final Calcium 07/24/2023 10:34:43 9.3 8.4-10.2 ( mg/dL) Final Protein 07/24/2023 10:34:43 6.2 6.0-8.3 (g /dL) Final ALT (Alanine aminotransferase) 07/24/2023 10:34:43 24 10-50 (U/L) Final Performing Location [facility] - [address] [place] [address]
--- OUTSIDE RECORDS SUMMARY | 2023-08-01 20:05 | External Medical Summary ---
Author Name Unknown Address Unknown Organization K09:[facility] [place] [address] Laboratory Report Ordering Provider Test Date Status JOSELIN THOMAS 07/24/2023 10:34:43 Final Observation Date Value Abnormality Reference (Units ) Status SYNC LEUKOCYTES IN BLOOD BY AUTOMATED COUNT 07/24/2023 10:34:43 10.84 Above high normal 4.00-10.80 (K/uL) Final Segs 07/24/2023 10:34:43 76.4 Above high normal 40.0-75.0 (%) Final Lymphs % 07/24/2023 10:34:43 12.5 Below low normal 18.0-42.0 (%) Final Monos 07/24/2023 10:34:43 8.5 1.0-11.0 (%) Final Eosinophils 07/24/2023 10:34:43 2.2 0.0-6.0 (%) Final Basos 07/24/2023 10:34:43 0.4 0.0-2.0 (%) Final Absolute Segs 07/24/2023 10:34:43 8.28 Above high normal 1.80-7.70 (K/uL) Final Lymphs, absolute 07/24/2023 10:34:43 1.36 1.00-4.80 (K/ul) Final Monos, Abs 07/24/2023 10:34:43 0.92 0.00-1.10 (K/uL) Final Eos, Abs 07/24/2023 10:34:43 0.24 0.00-0.70 (K/uL) Final Basos, Abs 07/24/2023 10:34:43 0.04 0.00-0.20 (K/uL) Final Performing Location [facility] [place] [address]
--- OUTSIDE RECORDS SUMMARY | 2023-08-01 20:05 | External Medical Summary | Summary of Care ---
Author Name Unknown Organization [facility] Address [address] [place] [address] Phone [phone] Care Team Providers Care Clam Bed Worker Name Role Phone Chavez Francois MD Primary Care Provider + Encounter Details Date Type Department Care Team (Late st Contact Info) Description 07/31/2023 Population Health External Data Unspecified Department Allergies Active Allergy Reactions Criticality Noted Date Comments Bee Venom 10/21/2014 Cefuroxime Axetil Rash Medium 08/12/2012 Food (See Comments) Diarrhea 08/01/2022 ALL nuts Nutritional Supplements Edema airway High 10/20/2012 documented as of this encounter (statuses as of 07/31/2023) Medications Medication Sig Dispensed Refills Start Date End Date Status Nebulizer System All-In-One Use as directed. 0 Active hydroCHLOROthiazide 25 MG Oral Tablet (Hydrodiuril)Indicat ions:HTN, goal below 140/90 TAKE 1 TABLET BY MOUTH DAILY. 90 Tablet 3 03/27/2021 Active Ipratropium-Albutero l 0.5-2.5 (3) MG/3ML Inhalation Solution (Duoneb)Indications: COPD, group D, by GOLD 2017 classification ([facility]) INHALE 3 ML (ONE [...] with CKD (chronic kidney disease) stage III ([facility]) TAKE 1 TABLET BY MOUTH IN THE MORNING 100 Tablet 2 01/25/2023 Active Albuterol Sulfate HFA 108 (90 Base) MCG/ACT Inhalation Aerosol SolutionIndications: COPD, group B, by GOLD 2017 classification ([facility]) INHALE 2 PUFFS BY MOUTH EVERY 4 HOURS NEEDED FOR COUGH, SHORTNESS OF BREATH OR WHEEZING. 18 g 11 05/22/2023 05/21/2024 Active Trelegy Ellipta 100-62.5-25 MCG/ACT Aerosol Powder Breath Activated (Fluticasone-Umeclid inium-Vilanterol)Ind ications:COPD, group D, by GOLD 2017 classification ([facility]) Inhale 1 Puff by mouth in the morning. Rinse mouth and gargle with water after use.. 60 Each 11 06/24/2023 Active Fluticasone Propionate 50 MCG/ACT Nasal Suspension (Flonase)Indications :COPD, moderate ([facility]),Chronic rhinitis Administer 2 Sprays into each nostril in the morning. 16 g 2 07/24/2023 Active Atorvastatin Calcium 40 MG Oral Tablet (Lipitor)Indications :Hyperlipidemia Take 1 Tablet by mouth in the morning. 90 Tablet 1 07/26/2023 Active documented as of this encounter (statuses as of 07/31/2023) Active Problems Problem Noted Date Diagnosed Date [...] as of this encounter (statuses as of 07/31/2023) Resolved Problems Problem Noted Date Diagnosed Date [...] as of this encounter (statuses as of 07/31/2023) Immunizations Name Administration Dates Next Due COVID-19 [...] 09/30/2023 3:30 PM EDT Office Visit Urology, [facility] [address] [facility] [place] [address] Trae Montejo MD [address] [facility] [address] [place] [id number] 11/19/2023 10:30 AM EDT Nurse Only Ancillary [facility] [address] [place] [address] Im, Nurse Annual Wellness [facility] [address] [place] [id number] 02/21/2024 10:00 AM EDT Office Visit General Internal Medicine [facility] [address] [facility] [place] [address] Chavez Francois MD [address] [place] [address] 03/09/2024 9:00 AM EST Imaging Radiology [facility] [address] [facility] [place] [address] [place] [address] Health Maintenance Due Date Last Done Comments [...] filedocumented as of this encounter Care Teams Clam Bed Worker Relationship Specialty Start Date End Date Chavez Francois MD [address] [facility] [place] [address] PCP - General Internal Medicine 08/12/12 documented as of this encounter
[2023-08-01] MEDS: FORMOTEROL 20 MCG/2 ML VIAL NEB SCH (20:17)
[2023-08-01] MEDS: BUDESONIDE 0.5 MG/2 ML VIAL (PULMICORT) NEB SCH (20:17)
[2023-08-01] MEDS: guaiFENesin 600 MG TABCR PO SCH (21:15)
[2023-08-02 05:28] LABS: Hematocrit (blood only) 37.1 % (42.0-52.0); Hemoglobin 12.4 g/dl (14.0-18.0); Mean Corpuscular Hemoglobin 28.4 pg (25.0-34.0); Mean Corpuscular Hgb Conc 33.4 g/dL (32.0-36.0); Mean Corpuscular Volume 84.9 fL (80.0-100.0); Mean Platelet Volume 10.6 fL (9.4-12.4); Platelet Count 293 K/uL (130-400); RDW Coefficient of Variation 15.3 % (11.5-14.5); RDW Standard Deviation 47.5 fL (36.4-46.3); Red Blood Count 4.37 M/uL (4.70-6.10); White Blood Count 12.92 K/ul (4.8-10.8)
[2023-08-02 05:56] LABS: BUN Creatinine Ratio 21.3 (10-20); Calcium 9.2 mg/dl (8.6-10.3); Creatinine Clr Calc Pharmacy 46.8 ml/min; Est GFR (African American) 96.9 ml/min; Est GFR (Non-African American) 83.6 ml/min; Potassium 3.8 mmol/L (3.5-5.1)
[2023-08-02] MEDS ORDERED: NON-FORMULARY MEDICATION (Fluticasone-Umeclidin-Vilanter [Trelegy Ellipta] 100-62.5-25 mcg INH SCH (09:00)
[2023-08-02] MEDS: ATORVASTATIN 40 MG TAB PO SCH (09:01)
[2023-08-02] MEDS: FLUTICASONE PROPIONATE NA SPR 16 GM BTL SCH (09:02)
[2023-08-02] MEDS: LOSARTAN POTASSIUM 50 MG TAB PO SCH (09:59)
[2023-08-02] MEDS: hydroCHLOROthiazide 25 MG TAB PO SCH (09:59)
[2023-08-02] MEDS: levoFLOXacin/D5W 750 MG/150 ML BAG IV SCH (10:37)
--- NOTE | 2023-08-02 12:51 | Discharge Summary ---
Date of Service August 02, 2023 Admission HPI Per Admitting Provider This is a 77-year-old male with PMHx of chronic tobacco use, COPD, bronchiolitis interstitial lung disease, pulmonary cachexia, bullous emphysema, HTN and HLD who presents to the hospital with acute worsening shortness of breath and dyspnea on exertion. Patient states that he was out with friends on Saturday night, with many people, and that she developed symptoms of cough which is nonproductive and shortness of breath on Saturday afternoon. He denies any fevers, chills or sweats. He has been tolerating p.o. intake without any difficulty. States that he took some hety-qnx-ahanfqy flu medication but that he had diarrhea 1 time but has since resolved after he took that 1 dose of cold medicine. He has been using albuterol inhalers daily and albuterol nebulizer 3-4 times/day since onset of his cold symptoms. He reports that it is difficult to take a deep breath, some pain substernally whenever he does so. He does not wear any supplemental O2 or CPAP at night. Denies any nausea, vomiting abdominal complaints, palpitations or chest pain. He continues to smoke half pack per day, started when he was age 16 and at some point in his life was up to 2 packs daily. Denies any other illicit drug use, no marijuana, no alcohol use. He notes that he weighs 106 pounds, states that he is eating multiple meals per day and eating things like cakes, cookies before he goes to bed but continues to lose weight. His PCP has started workup to find the reason for such. He is also drinking 1 Ensure daily. Admission Exam Per Admitting Provider General: awake, alert, no apparent distress, cachexia, thin white male Head: Normocephalic, atraumatic ENT: PERRL, EOMI in R eye, Left eye blindness, no pharyngeal exudate, mucous membranes moist Chest: +Nearly absent breath sounds throughout, faint crackles, wet cough is nonproductive, barrel chested, conversationally dyspneic Cardiac: Regular rate and rhythm, no murmur, no JVD, normal peripheral pulses, good capillary refill Abdominal: NABS x 4 quadrants, soft, nondistended, nontender to palpation, no rebound or guarding Extremities: +muscular atrophyNormal inspection, no peripheral edema or erythema, calfs nontender to palpation Psych: Normal mood and affect Neuro: AAO x 3, strength intact bilaterally and rated 5/5, no motor deficits, speech is clear, no peripheral sensory deficits Principal Diagnosis COPD exacerbation Pneumonia Discharge Exam General: awake, alert, no apparent distress, cachexia, thin white male, on RA Head: Normocephalic, atraumatic ENT: PERRL, EOMI in R eye, Left eye blindness, no pharyngeal exudate, mucous membranes moist Chest: rhonci/crackles b/l. able to complete sentences. moving around hallway with no issues. barrel chest. Cardiac: Regular rate and rhythm, no murmur, no JVD, normal peripheral pulses, good capillary refill Abdominal: NABS x 4 quadrants, soft, nondistended, nontender to palpation, no rebound or guarding Extremities: +muscular atrophy, Normal inspection, no peripheral edema or erythema, calfs nontender to palpation Psych: Normal mood and affect Neuro: AAO x 3, strength intact bilaterally and rated 5/5, no motor deficits, speech is clear, no peripheral sensory deficits Discharge Data Allergies Allergy/AdvReac Type Severity Reaction Status Date / Time cefuroxime Allergy Intermediate rash Verified 04/16/22 12:06 bee venom protein (honey bee) Allergy Unknown ANAPHYLAXIS Verified 04/16/22 12:06 Consultations 08/01/23 11:13 ED Decision to Admit Stat Ordered Studies 08/01/23 13:15 CT chest diagnostic w con Routine Hospital Course (1) Acute exacerbation of chronic obstructive pulmonary disease (COPD): (2) Pneumonia: (3) Bullous emphysema: (4) Chronic rhinitis: (5) HTN (hypertension): (6) Hyperlipidemia: Per prior attending with addendum: COPD exacerbation Bullous emphysema Pneumonia -Admit to [facility] tele -Continue patient on IV steroid, administered dexamethasone 10 mg IV in the ER, will continue solumedrol 40 mg Q8H -Started on Levaquin, continue with hx of allergy to cefuroxime -Slight respiratory acidosis with pH7.34, pCO2 56 -Does not wear chronic supplemental O2 at baseline, currently o2 sats 92-94% on 2 L -WBC of 18,000 with a left shift -COVID, flu, RSV are negative, did not complete the full bio fire panel, will treat supportively -Check CT chest w/wo -Check BNP, can consider echo pending results, does not appear volume overloaded, given 1 L NSS in the ER, no further fluids. -May continue home medications including Fluticasone Propionate, hold trelegy inhaler and will use albuterol neb, performist neb and budesonide nebs -Consider pulmonary consultation, follows with them as an outpatient -Patient is still smoking cigarettes, cessation encouraged bedside HTN - Hold hctz and losartan for now with pneumonia, can resume tomorrow morning if BP remains stable HLD - Chronic, cont statin therapy Cachexia - BMI of 15.2 - Regular diet allowed, continue ensure/boost supplementation daily - Follow CT chest as above DVT ppx: teds, scds Lines: 1 PIV FEN/GI: Allow regular diet CODE: No intubation, ok with chest compression Addendum/09/19: Patient was seen and examined at bedside as a follow-up of COPD exacerbation and pneumonia. Patient on room air, ambulating independently in the hallway, with speech evaluated, video swallow study as an outpatient recommended to rule out silent aspiration. Patient reports feeling better, and would like to go home. Patient is hemodynamically stable. Patient will be discharged on prednisone taper and antibiotic. He is being discharged with following instruction at the point of discharge: Follow-up with your primary care physician within a week time and likely you will need labs CBC/CMP/magnesium/phosphorus. You will be discharged on prednisone taper for your COPD exacerbation. You will be discharged on antibiotic for your pneumonia. Follow-up with your pulmonology in 2 to 4 weeks time upon discharge. You will benefit from getting lung function test in about 6 weeks time, coordinate with your pulmonology office or PCP office to set up the test. You will benefit from video swallow study as an outpatient, coordinate with your PCP office to set up the test. Take your medications as prescribed. Please make sure that you are able to get your medications today by calling your pharmacy before you leave the hospital so that your treatment continuity is not broken. Home Health Attestation I certify that this patient is under my care and that I, or a physicians service center assistant working with me, had a face to-face encounter that meets the [facility] byvx-qe-jrym encounter requirements with this patient. The encounter with the patient was in whole, or in part, for the following medical condition, which is the primary reason for home health care (list medical condition): I certify that, based on my findings, the following services are medically necessary home health services: My clinical findings support the need for the above services because: Further, I certify that my clinical findings support that this patient is homebound (i.e. absences from home require considerable and taxing effort and are for medical reasons or advent services or infrequently or of short duration when for other reasons) because: Certification for Home Health Services: Based on the above findings, I certify that this patient is confined to the home and needs intermittent jail care, physical therapy and/or speech therapy or continues to need occupational therapy. The patient is under my care, and I have initiated the establishment of the plan of care. This patient will be followed by a physician who will periodically review the plan of care. Total Time Total Time Spent Total Time Spent (In Minutes): 45 Discharge Plan Discharge Items Patient Disposition: Home - Self-Care Reason For Visit: COPD EXACERBATION Discharge Diagnosis: Acute exacerbation of COPD Pneumonia Activity: Resume your previous activity Non-emergency contact: Primary Care Provider Call non-emergency contact if: you have any medication questions, your symptoms worsen and your temperature is above 101.5 Follow-up/Referrals: Chavez Francois MD [Primary Care Provider] - Diet: Regular Addtl Attending Provider Instructions: Follow-up with your primary care physician within a week time and likely you will need labs CBC/CMP/magnesium/phosphorus. You will be discharged on prednisone taper for your COPD exacerbation. You will be discharged on antibiotic for your pneumonia. Follow-up with your pulmonology in 2 to 4 weeks time upon discharge. You will benefit from getting lung function test in about 6 weeks time, coordinate with your pulmonology office or PCP office to set up the test. You will benefit from video swallow study as an outpatient, coordinate with your PCP office to set up the test. Take your medications as prescribed. Please make sure that you are able to get your medications today by calling your pharmacy before you leave the hospital so that your treatment continuity is not broken. Pending Studies at Discharge: Yes Stand-Alone Forms: My [employer], Smoking Cessation Medications and DC Order Prescriptions: New benzonatate 100 mg Capsule 100 mg PO TID 5 Days Qty: 15 0RF guaifenesin [Mucinex] 600 mg Tablet Extended Release 12hr 1,200 mg PO Q12 5 Days Qty: 20 0RF levofloxacin 750 mg tablet 750 mg PO DAILY 6 Days Qty: 6 0RF prednisone 20 mg tablet 20 mg PO UD Qty: 9 0RF Rx Instructions: 40 mg daily x 3 days, then 20 mg daily for next 3 days. Continued atorvastatin [Lipitor] 40 mg Tablet 40 mg PO QAM albuterol sulfate 0.63 mg/3 mL Solution For Nebulization 0.63 mg INHALATION BID albuterol sulfate 90 mcg/actuation Hfa Aerosol Inhaler 2 puff INHALATION QID PRN (Reason: Wheezing) fluticasone propionate 50 mcg/actuation [place],Suspension 2 spray INTRANASAL QAM Rx Instructions: administer into each nostril epinephrine 0.1 mg/0.1 mL Auto-Injector 1 mg subcut UD PRN (Reason: Allergic Reaction) losartan 50 mg Tablet 50 mg PO QAM hydrochlorothiazide 25 mg Tablet 25 mg PO QAM acetaminophen 500 mg Tablet 1,000 mg PO Q6H PRN (Reason: Pain) Trelegy Ellipta 100-62.5-25 mcg blister with device 1 inh INHALATION QAM Discharge Orders: Discharge Order (Routine); Ordered 08/02/23 Ordered By: Scott Gonzalez Admission Data Admit Date/Time: 08/01/23 12:35 Attending Provider: Scott Gonzalez Admit Provider: Migue Boogie Primary Care Provider: Chavez Francois Other Providers: Migue Boogie
--- NOTE | 2023-08-03 06:50 | Electrocardiogram Report ---
Test Reason : Blood Pressure : / mmHG Vent. Rate : 116 BPM Atrial Rate : 116 BPM P-R Int : 168 ms QRS Dur : 084 ms QT Int : 312 ms P-R-T Axes : 083 077 088 degrees QTc Int : 433 ms Sinus tachycardia Right atrial enlargement Cannot rule out Anterior infarct , age undetermined Abnormal ECG When compared with ECG of 17-AUG-2016 15:22, Criteria for Inferior infarct are no longer Present Confirmed by Lalo Izaguirre ([id number]) on 08/03/2023 6:49:41 AM Referred By: REFERRED SELF Confirmed By:Lalo Izaguirre
== END 2023-08-02 16:06 | disposition home or self-care (01) | DRG 190 ==
LOC: ED 09:29 → EDINP 12:35 → SUATTDRO 12:35 → 2W 13:20

== ENCOUNTER 2023-09-27 11:55 | Inpatient (IN) ==
[2023-09-27 13:25] LABS: Basophils # (auto) 0.04 K/uL (0.00-0.20); Basophils % (auto) 0.2 %; Eosinophils # (auto) 0.01 K/uL (0.00-0.50); Eosinophils % (auto) 0.1 %; Hematocrit (blood only) 44.5 % (42.0-52.0); Hemoglobin 14.3 g/dl (14.0-18.0); Immature Granulocytes # (auto) 0.12 K/uL (0.01-0.20); Immature Granulocytes % (auto) 0.7 %; Lymphocytes # (auto) 0.58 K/uL (1.20-3.40); Lymphocytes % (auto) 3.3 %; Mean Corpuscular Hemoglobin 27.8 pg (25.0-34.0); Mean Corpuscular Hgb Conc 32.1 g/dL (32.0-36.0); Mean Corpuscular Volume 86.6 fL (80.0-100.0); Mean Platelet Volume 10.2 fL (9.4-12.4); Monocytes # (auto) 1.24 K/uL (0.11-0.59); Neutrophils # (auto) 15.73 K/uL (1.40-6.50); Neutrophils % (auto) 88.7 %; Platelet Count 320 K/uL (130-400); RDW Coefficient of Variation 16.9 % (11.5-14.5); RDW Standard Deviation 53.5 fL (36.4-46.3); Red Blood Count 5.14 M/uL (4.70-6.10); White Blood Count 17.72 K/ul (4.8-10.8)
[2023-09-27 13:48] LABS: Albumin Globulin Ratio 1.2 (0.9-2); Albumin Level 4.1 gm/dl (3.4-5.0); BUN Creatinine Ratio 23.6 (10-20); Bilirubin,Total 2.4 mg/dl (0.2-1.0); Calcium 9.6 mg/dl (8.6-10.3); Creatinine Clr Calc Pharmacy 36.6 ml/min; Est GFR (African American) 75.2 ml/min; Est GFR (Non-African American) 64.9 ml/min; Globulin 3.4 gm/dl (2.5-4.0); Total Protein 7.5 gm/dl (6.0-8.3)
[2023-09-27] MEDS: ALBUTEROL 0.083% NEBU SOLN 3 ML VIAL NEB STA (13:51)
[2023-09-27] MEDS: methylPREDNISolone 125 MG/2 ML VIAL IV STA (13:51)
[2023-09-27 13:53] LABS: INR 1.2 (0.9-1.1); Partial Thromboplastin Ratio 1.3; Partial Thromboplastin Time 35 Seconds (21-31); Prothrombin Time 12.4 Seconds (9.0-12.0)
[2023-09-27 13:55] LABS: Troponin I High Sensitivity 21.8 pg/ml (0-20)
--- NOTE | 2023-09-27 14:07 | Emergency Department Note ---
Impression & Plan Acute exacerbation of chronic obstructive pulmonary disease (COPD), Hypoxia, COVID-19 ED Provider Note Provider: Erickson Lee MD DATE OF SERVICE: 09/27/2023 CHIEF COMPLAINT: Breathing issues HISTORY OF PRESENT ILLNESS: Patient is a 78-year-old gentleman history of hypertension, COPD, interstitial lung disease presenting here today with worsening breathing and shortness of breath. The last day or 2 states some worsening breathing. Did run out of his trilogy and waiting to get it from the pharmacy but too short of breath. No swelling. No sick contacts. Denies chest pain. Productive cough with some white sputum. Worsening short of breath with ambulation. No significant recent travel reported. PAST MEDICAL HISTORY: As noted above MEDICATIONS: Reviewed home medications. Daughter at home oxygen. SOCIAL HISTORY: Longtime smoker PHYSICAL EXAM: GENERAL: alert and oriented in no acute distress on stretcher Head: normocephalic and atraumatic EYES: No injection, discharge or icterus. Denies double vision but baseline disconjugate gaze. NECK: Trachea midline. ENT: Mucous membranes pink and moist. LUNGS: Airway patent. No retractions but mild tachypnea and diffuse expiratory wheeze HEART: Regular rate and rhythm. No chest wall tenderness ABDOMEN: Soft and non-tender, without guarding or rebound. SKIN: Acyanotic, warm, dry, without rashes EXTREMITIES: Without swelling, tenderness or deformity NEUROLOGICAL: No focal deficits. No aphasia. No facial droop or slurred speech. EK bpm sinus tachycardia. No PVC or PAC. No acute ST segment elevation with a QTc of 432. CONTINUOUS CARDIAC MONITORING: was ordered and showed a heart rate of 120s-100s bpm in sinus tachycardia Patient's laboratory studies and imaging reviewed. Differential includes Reactive airway disease, pneumonia, pneumothorax, COPD, CHF, infections, cardiac ischemia, pulmonary embolism, musculoskeletal, gastrointestinal, as well as other pathologies. IMPRESSION/MEDICAL DECISION MAKING: Reviewed prior admission in July here. At that time had a COPD exacerbation and pneumonia. Patient now with return of wheezing and shortness of breath and severely wheezy upon her arrival. Received Solu-Medrol as well as nebulizer prior to my evaluation and still fairly wheezy and mildly tachypneic. Does not appear altered or encephalopathic. X-ray obtained to exclude pneumonia. Does not appear fluid overloaded. Denies chest pain. No clinical evidence of DVT. Doubt this represents PE given his significant wheezing given additional DuoNeb here. Is requiring some supplemental oxygen supplementation which is new for him. Will send respiratory viral panel for completeness. Given his illness will place on a course of Levaquin which he is tolerated before as he has a cefuroxime allergy. Chest x-ray per radiology questioning will left infiltrate although I am not entirely sure this is just all COPD and this is chronic. Positive for entero-/rhinovirus as well as COVID-19. Likely contributing. Dose of dexamethasone ordered. Will bring into the hospital and hospitalist contacted. DIAGNOSIS: COPD exacerbation, hypoxia, COVID-19, rhinovirus DISPOSITION: Hospitalist will evaluate Patient was agreeable with this plan. Past Med/Surg History Problem List (Updated 09/27/23 @ 15:41 by Erickson Lee M.D.) COVID-19 (Acute) Pneumonia (Acute) Hypoxia (Acute) Acute bronchitis (Acute) Chronic rhinitis Bullous emphysema Acute exacerbation of chronic obstructive pulmonary disease (COPD) (Acute) Right inguinal hernia Epistaxis (Acute) Epistaxis (Acute) HTN (hypertension) (Chronic) Hyperlipidemia (Chronic) COPD (chronic obstructive pulmonary disease) (Chronic) Upper respiratory infection (Acute) Epistaxis (Acute) Hypotension (Acute) Epistaxis (Acute) Encounter for pre-operative examination Medical History Right inguinal hernia History of COVID-19 03/26/22 (Adriel PCR) Symptoms at time: SOB, rx paxlovid > symptoms resolved Kidney stones hx Migraine hx Chronic obstructive pulmonary disease Chronic cough Hyperlipidemia Hypertension Anemia Surgical History Hx of inguinal hernia repair LT-2003, 2021 History of ERCP Gallstone extraction History of cystoscopy WITH REMOVAL KIDNEY STONE History of colonoscopy Family History Other No known health problems Social History Smoking Status: Former smoker Tobacco Type: Cigarettes Cigarettes Per Day: 0.5 ppd; Second Hand Exposure: Yes; Do You Dip or Chew Tobacco: No; Hx Alcohol Use: No Hx Substance Use: Yes Preferred Language: Ukrainian Communication Ability: Effective 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 Beliefs That Will Affect Care: None Current Living Situation: Alone current occupational status: retired Feels Safe at Home: Yes Assistive Devices: Nebulizer Allergies Allergies Allergy/AdvReac Type Severity Reaction Status Date / Time bee venom protein (honey bee) Allergy Severe ANAPHYLAXIS Verified 09/27/23 15:35 cefuroxime Allergy Intermediate rash Verified 09/27/23 15:35 nut - unspecified AdvReac Intermediate ALL Verified 09/27/23 15:35 NUTS--DIARRHEA NUTRITIONAL SUPPLIMENTS Allergy Severe EDEMA Uncoded 09/27/23 15:35 AIRWAY Home Meds Home Medications Medication Instructions Recorded Confirmed acetaminophen 500 mg tablet 1,000 mg PO Q6H PRN Pain 12/29/21 08/01/23 albuterol sulfate 0.63 mg/3 mL 0.63 mg inhalation BID 12/29/21 08/01/23 solution for nebulization albuterol sulfate 90 mcg/actuation 2 puff inhalation QID PRN Wheezing 12/29/21 08/01/23 aerosol inhaler atorvastatin 40 mg tablet (Lipitor) 40 mg PO QAM 12/29/21 08/01/23 epinephrine 0.1 mg/0.1 mL 1 mg subcut UD PRN Allergic 12/29/21 08/01/23 injection, auto-injector Reaction fluticasone propionate 50 2 spray intranasal QAM 12/29/21 08/01/23 mcg/actuation nasal spray,suspension hydrochlorothiazide 25 mg tablet 25 mg PO QAM 12/29/21 08/01/23 losartan 50 mg tablet 50 mg PO QAM 12/29/21 08/01/23 fluticasone fur. 100 mcg-umeclid 1 inh inhalation QAM 08/01/23 08/01/23 62.5 mcg-vilant 25 mcg inhalat.powder (Trelegy Ellipta) Previous Rx's Medication Instructions Recorded prednisone 20 mg tablet 20 mg PO UD #9 tabs 08/02/23 Results & Data (ED) Vital Signs Vital Signs - 24 hr 09/27/23 12:00 09/27/23 12:00 09/27/23 12:00 Temperature 36.6 C Temperature Source Temporal Artery Scan Pulse Rate 120 H Pulse Rate [Apical] Respiratory Rate 20 Respiratory Effort / Characteristics Spontaneous Labored Labored Respiratory Depth Normal Respiratory Pattern Blood Pressure 138/83 Blood Pressure [Left Arm] Blood Pressure Mean 101 Blood Pressure Mean [Left Arm] Blood Pressure Position [Left Arm] Pulse Oximetry 90 90 Oxygen Delivery Method Room Air Nasal Cannula Oxygen Flow Rate 2 Sepsis Recent Fever Within 48 Hours No Sepsis New/Unexplained Change in Mental Status No Sepsis Action Taken by Nursing No Action Required Oxygen Flow Rate - Titration Pulse Oximetry Post Tiitration 09/27/23 13:56 09/27/23 14:10 09/27/23 14:10 Temperature Temperature Source Pulse Rate 110 H Pulse Rate [Apical] 110 H Respiratory Rate 18 29 H Respiratory Effort / Characteristics Spontaneous Short of Breath Respiratory Depth Respiratory Pattern Blood Pressure Blood Pressure [Left Arm] Blood Pressure Mean Blood Pressure Mean [Left Arm] Blood Pressure Position [Left Arm] Pulse Oximetry 98 94 Oxygen Delivery Method Nebulizer Nasal Cannula Nasal Cannula Oxygen Flow Rate 3 3 Sepsis Recent Fever Within 48 Hours Sepsis New/Unexplained Change in Mental Status Sepsis Action Taken by Nursing Oxygen Flow Rate - Titration 3 Pulse Oximetry Post Tiitration 94 09/27/23 14:10 09/27/23 14:39 09/27/23 15:00 Temperature Temperature Source Pulse Rate Pulse Rate [Apical] 108 H 105 H Respiratory Rate 23 22 26 H Respiratory Effort / Characteristics Spontaneous Accessory Muscle Use Labored Short of Breath Spontaneous Accessory Muscle Use Respiratory Depth Respiratory Pattern Tachypnea Tachypnea Blood Pressure Blood Pressure [Left Arm] 115/77 Blood Pressure Mean Blood Pressure Mean [Left Arm] 89 Blood Pressure Position [Left Arm] Semi-fowlers Pulse Oximetry 92 92 99 Oxygen Delivery Method Nasal Cannula Nasal Cannula Nebulizer Oxygen Flow Rate 3 3 Sepsis Recent Fever Within 48 Hours Sepsis New/Unexplained Change in Mental Status Sepsis Action Taken by Nursing Oxygen Flow Rate - Titration Pulse Oximetry Post Tiitration 09/27/23 15:32 Temperature Temperature Source Pulse Rate 102 H Pulse Rate [Apical] Respiratory Rate Respiratory Effort / Characteristics Respiratory Depth Respiratory Pattern Blood Pressure Blood Pressure [Left Arm] Blood Pressure Mean Blood Pressure Mean [Left Arm] Blood Pressure Position [Left Arm] Pulse Oximetry Oxygen Delivery Method Oxygen Flow Rate Sepsis Recent Fever Within 48 Hours Sepsis New/Unexplained Change in Mental Status Sepsis Action Taken by Nursing Oxygen Flow Rate - Titration Pulse Oximetry Post Tiitration Laboratory Data 09/27/23 12:58 09/27/23 12:58 Lab Results 09/27/23 09/27/23 09/27/23 Range/Units 12:58 14:10 14:36 WBC 17.72 H (4.8-10.8) K/ul RBC 5.14 (4.70-6.10) M/uL Hgb 14.3 (14.0-18.0) g/dl Hct 44.5 (42.0-52.0) % MCV 86.6 (80.0-100.0) fL MCH 27.8 (25.0-34.0) pg MCHC 32.1 (32.0-36.0) g/dL RDW Std Deviation 53.5 H (36.4-46.3) fL RDW Coeff of Odalys 16.9 H (11.5-14.5) % Plt Count 320 (130-400) K/uL MPV 10.2 (9.4-12.4) fL Immature Gran % (Auto) 0.7 % Neut % (Auto) 88.7 % Lymph % (Auto) 3.3 % [place] % (Auto) 7.0 % Eos % (Auto) 0.1 % Baso % (Auto) 0.2 % Neut # (Auto) 15.73 H (1.40-6.50) K/uL Lymph # (Auto) 0.58 L (1.20-3.40) K/uL [place] # (Auto) 1.24 H (0.11-0.59) K/uL Eos # (Auto) 0.01 (0.00-0.50) K/uL Baso # (Auto) 0.04 (0.00-0.20) K/uL Immature Gran # (Auto) 0.12 (0.01-0.20) K/uL PT 12.4 H (9.0-12.0) Seconds INR 1.2 H (0.9-1.1) APTT 35 H (21-31) Seconds PTT Ratio 1.3 Sodium 137 (136-145) mmol/L Potassium 4.0 (3.5-5.1) mmol/L Chloride 101 (98-107) mmol/L Carbon Dioxide 27 (21-32) mmol/L Anion Gap 9 (3-11) BUN 26 H (6-23) mg/dl Creatinine 1.10 (0.6-1.4) mg/dl Est Cr Clr Drug Dosing 36.6 ml/min Est GFR ( Amer) 75.2 ml/min Est GFR (Non-Af Amer) 64.9 ml/min BUN/Creatinine Ratio 23.6 H (10-20) Glucose 119 H (70-99(Fasting)) mg/dl Lactate 1.4 (0.4-2.0) mmol/L Calcium 9.6 (8.6-10.3) mg/dl Total Bilirubin 2.4 H (0.2-1.0) mg/dl AST 17 (13-39) U/L ALT 17 (7-52) U/L Alkaline Phosphatase 87 (34-104) U/L Troponin I High Sens 21.8 H (0-20) pg/ml Total Protein 7.5 (6.0-8.3) gm/dl Albumin 4.1 (3.4-5.0) gm/dl Globulin 3.4 (2.5-4.0) gm/dl Albumin/Globulin Ratio 1.2 (0.9-2) Adenovirus (PCR) Not Detected (NotDetected) B. pertussis DNA (PCR) Not Detected (NotDetected) B.parapertussis DNA PCR Not Detected (NotDetected) C. pneumoniae DNA (PCR) Not Detected (NotDetected) Coronavirus OC43 (PCR) Not Detected (NotDetected) Coronavirus HKU1 (PCR) Not Detected (NotDetected) Coronavirus 229E (PCR) Not Detected (NotDetected) SARS-CoV-2 (PCR) DETECTED A (NotDetected) Coronavirus NL63 (PCR) Not Detected (NotDetected) Human Metapneumovir PCR Not Detected (NotDetected) Influenza Type A (PCR) Not Detected (NotDetected) Influenza Type B (PCR) Not Detected (NotDetected) M. pneumoniae (PCR) Not Detected (NotDetected) Parainfluenza 1 (PCR) Not Detected (NotDetected) Parainfluenza 2 (PCR) Not Detected (NotDetected) Parainfluenza 3 (PCR) Not Detected (NotDetected) Parainfluenza 4 (PCR) Not Detected (NotDetected) RSV (PCR) Not Detected (NotDetected) Entero/Rhino (PCR) DETECTED A (NotDetected) Administered Medications Discontinued Medications Albuterol (Albuterol 0.083% Nebu Soln 3 Ml Vial) 2.5 mg NEB NOW STA; Protocol Stop: 09/27/23 13:46 Last Admin: 09/27/23 13:51 Dose: 2.5 mg Documented By: CECE Albuterol (Albut/Ipratrop 3mg/0.5mg Neb 3 Ml Vial) 12 ml NEB ONE ONE; Protocol Stop: 09/27/23 14:10 Last Admin: 09/27/23 14:35 Dose: 12 ml Documented By: BONNIE Methylprednisolone (Methylprednisolone 125 Mg/2 Ml Vial) 125 mg IV NOW STA Stop: 09/27/23 13:46 Last Admin: 09/27/23 13:51 Dose: 125 mg Documented By: CECE Imaging Data Radiologist's Impression: Chest X-Ray 09/27/23 12:04 XR chest 1V portable CLINICAL HISTORY: Chest pain, nonspecific COMPARISON STUDY: Chest radiograph and chest CT August 01, 2023. FINDINGS: There is severe emphysema. No pneumothorax or pleural effusion is present. Left basilar airspace opacity is noted. Bilateral lower lung interstitial thickening is similar to prior exam. There may be minimal right basilar opacity. Cardiomediastinal silhouette is normal. IMPRESSION: 1. Left basilar opacity suspicious for pneumonia. Radiographic follow-up to ensure resolution is recommended. 2. Persistent lower lung interstitial thickening which may also be infectious in etiology. 3. Severe emphysema. ACT 112: Negative or not required by law. Electronically signed by: Christopher Florez M.D. 09/27/2023 3:20 PM Discharge Plan Visit Data Chief Complaint: Shortness of Breath/Dyspnea Stated Complaint: SOB ED Provider: Erickson Lee Discharge Problem: Acute exacerbation of chronic obstructive pulmonary disease (COPD), Hypoxia, COVID-19 Patient Disposition: Being Evaluated by Hospitalist Forms Stand Alone Forms: My [facility] [employer] Prescriptions Prescriptions: No Action atorvastatin [Lipitor] 40 mg Tablet 40 mg PO QAM albuterol sulfate 0.63 mg/3 mL Solution For Nebulization 0.63 mg INHALATION BID albuterol sulfate 90 mcg/actuation Hfa Aerosol Inhaler 2 puff INHALATION QID PRN (Reason: Wheezing) fluticasone propionate 50 mcg/actuation [place],Suspension 2 spray INTRANASAL QAM Rx Instructions: administer into each nostril epinephrine 0.1 mg/0.1 mL Auto-Injector 1 mg subcut UD PRN (Reason: Allergic Reaction) losartan 50 mg Tablet 50 mg PO QAM hydrochlorothiazide 25 mg Tablet 25 mg PO QAM acetaminophen 500 mg Tablet 1,000 mg PO Q6H PRN (Reason: Pain) Trelegy Ellipta 100-62.5-25 mcg blister with device 1 inh INHALATION QAM prednisone 20 mg tablet 20 mg PO UD Qty: 9 0RF Rx Instructions: 40 mg daily x 3 days, then 20 mg daily for next 3 days. Referrals Referrals: Chavez Francois MD [Primary Care Provider] -
[2023-09-27] MEDS: ALBUT/IPRATROP 3MG/0.5MG NEB 3 ML VIAL NEB ONE (14:35)
--- NOTE | 2023-09-27 14:46 | Electrocardiogram Report ---
Test Reason : Blood Pressure : / mmHG Vent. Rate : 117 BPM Atrial Rate : 117 BPM P-R Int : 154 ms QRS Dur : 084 ms QT Int : 310 ms P-R-T Axes : 086 055 088 degrees QTc Int : 432 ms Sinus tachycardia Biatrial enlargement Pulmonary disease pattern Abnormal ECG When compared with ECG of 01-AUG-2023 09:55, No significant change was found Confirmed by Terrance Tolbert ([id number]) on 09/27/2023 2:46:33 PM Referred By: Confirmed By:Terrance Tolbert
--- NOTE | 2023-09-27 15:21 | XRay Report ---
XR chest 1V portable CLINICAL HISTORY: Chest pain, nonspecific COMPARISON STUDY: Chest radiograph and chest CT August 01, 2023. FINDINGS: There is severe emphysema. No pneumothorax or pleural effusion is present. Left basilar air space opacity is noted. Bilateral lower lung interstitial thickening is similar to prior exam. There may be minimal right basilar opacity. Cardiomediastinal silhouette is normal. IMPRESSION: 1. Left basilar opacity suspicious for pneumonia. Radiographic follow-up to ensure resolution is indu mmended. 2. Persistent lower lung interstitial thickening which may also be infectious in etiology. 3. Severe emphysema. ACT 112: Negative or not required by law. Electronically signed by: Christopher Florez M.D. 09/27/2023 3:20 PM
[2023-09-27 15:30] LABS: Adenovirus PCR Not Detected (NotDetected); Bordetella parapertussis PCR Not Detected (NotDetected); Bordetella pertussis PCR Not Detected (NotDetected); Chlamydia pneumoniae PCR Not Detected (NotDetected); Coronavirus 229E PCR Not Detected (NotDetected); Coronavirus CoV-2 (COVID19)PCR DETECTED (NotDetected); Coronavirus HKU1 PCR Not Detected (NotDetected); Coronavirus NL63 PCR Not Detected (NotDetected); Coronavirus OC43PCR Not Detected (NotDetected); Human Metapneumovirus PCR Not Detected (NotDetected); Influenza A PCR Not Detected (NotDetected); Influenza B PCR Not Detected (NotDetected); Mycoplasma pneumoniae PCR Not Detected (NotDetected); Parainfluenza Virus 1 PCR Not Detected (NotDetected); Parainfluenza Virus 2 PCR Not Detected (NotDetected); Parainfluenza Virus 3 PCR Not Detected (NotDetected); Parainfluenza Virus 4 PCR Not Detected (NotDetected); Respiratory Syncytial VirusPCR Not Detected (NotDetected); Rhinovirus/Enterovirus PCR DETECTED (NotDetected)
--- NOTE | 2023-09-27 15:37 | History & Physical Report ---
Date of Service September 27, 2023 Assessment & Plan (1) Acute exacerbation of chronic obstructive pulmonary disease (COPD): (2) Bullous emphysema: (3) COVID-19: (4) Sepsis: (5) Pneumonia: Plan: Afebrile, HR 120 RR 29, WBC 17k on admission, lactate wnl Resp viral panel + for covid, rhinovirus CT chest with bronchial wall thickening and consolidative opacities compatible with pneumonia. Emphysema is seen. Stable pulmonary nodules as above. Reactive lymph nodes are seen Continue Levaquin given allergy to cefuroxime Continue Remdesivir, Decadron, Isolation precautions Mucinex BID, cont home inhalers, Duoneb QIDR, tessalon perles, flutter valve Continue supplemental O2 as needed, wean when able (not on home O2) (6) HTN (hypertension): Plan: Continue losartan, hctz with hold parameters (7) Hyperlipidemia: Plan: Chronic, stable. Continue statin (8) Tobacco use: Plan: Recently quit. Continue nicotine patch, gum PRN (9) Pulmonary cachexia due to chronic obstructive pulmonary disease: Plan: BMI 15.2. Continue Ensure BID DVT Ppx: SQ heparin Code status: conditional code (Yes to CPR, shock, NO to intubation or mech vent) PCP: Priscila Dispo: admit to med tele Patient seen in collaboration with Dr. Bhagat. Please see addendum. I spent a total of 75 minutes coordinating, documenting, and providing care for this patient excluding time spent in the performance of separately billed services. History of Present Illness Chief Complaint: SOB Primary Care Provider: Chavez Francois MD This is a 78yo M with a PMH of COPD, respiratory bronchiolitis interstitial lung disease following with [facility] pulm, bullous emphysema, tobacco use, HTN and HLD who presents to the hospital with worsening shortness of breath x 2 days. Was admitted to our service for resp failure in setting of COPD last month. Followed up with Dr. Angela of [facility] on 08/13 who recommended continued use of mucinex, trelegy, flutter valve and smoking cessation. Patient has quit smoking and is using nicotine patches and gum. Did run out of his trilogy and waiting to get it from the pharmacy but too short of breath. Denies sick contacts. + Productive cough with some white sputum. Worsening short of breath with ambulation over past 2 days. + rhinorrhea. No F/C, lightheadedness, CP, N/V, abd pain, dysuria, diarrhea or constipation. Allergies Allergy/AdvReac Type Severity Reaction Status Date / Time bee venom protein (honey bee) Allergy Severe ANAPHYLAXIS Verified 09/27/23 15:35 cefuroxime Allergy Intermediate rash Verified 09/27/23 15:35 nut - unspecified AdvReac Intermediate ALL Verified 09/27/23 15:35 NUTS--DIARRHEA NUTRITIONAL SUPPLIMENTS Allergy Severe EDEMA Uncoded 09/27/23 15:35 AIRWAY Home Medications Medication Instructions Recorded Confirmed Type acetaminophen 500 mg tablet 1,000 mg PO Q6H PRN Pain 12/29/21 09/27/23 History albuterol sulfate 90 mcg/actuation 2 puff inhalation QID PRN Wheezing 12/29/21 09/27/23 History aerosol inhaler atorvastatin 40 mg tablet (Lipitor) 40 mg PO QAM 12/29/21 09/27/23 History epinephrine 0.1 mg/0.1 mL 1 mg subcut UD PRN Allergic 12/29/21 09/27/23 History injection, auto-injector Reaction fluticasone propionate 50 2 spray intranasal QAM 12/29/21 09/27/23 History mcg/actuation nasal spray,suspension hydrochlorothiazide 25 mg tablet 25 mg PO QAM 12/29/21 09/27/23 History losartan 50 mg tablet 50 mg PO QAM 12/29/21 09/27/23 History fluticasone fur. 100 mcg-umeclid 1 inh inhalation QAM 08/01/23 09/27/23 History 62.5 mcg-vilant 25 mcg inhalat.powder (Trelegy Ellipta) benzonatate 100 mg capsule 100 mg PO TID PRN Cough 09/27/23 09/27/23 History guaifenesin 600 mg tablet, 1,200 mg PO Q12H PRN Congestion 09/27/23 09/27/23 History extended release 12 hr (Mucus Relief ER) ipratropium 0.5 mg-albuterol 3 mg 3 ml inhalation QID PRN Shortness 09/27/23 09/27/23 History (2.5 mg base)/3 mL nebulization Of Breath Or Wheezing soln nicotine (polacrilex) 2 mg gum 2 mg buccal QID PRN SMOKING URGE 09/27/23 09/27/23 History nicotine 14 mg/24 hr daily 1 patch transdermal DAILY 09/27/23 09/27/23 History transdermal patch nicotine 7 mg/24 hr daily 1 patch transdermal DAILY 09/27/23 09/27/23 History transdermal patch Past Med/Surg History Problem List (Updated 09/27/23 @ 21:38 by Mikayla Benavides PA-C) Sepsis Pulmonary cachexia due to chronic obstructive pulmonary disease Tobacco use COVID-19 (Acute) Pneumonia (Acute) Hypoxia (Acute) Acute bronchitis (Acute) Chronic rhinitis Bullous emphysema Acute exacerbation of chronic obstructive pulmonary disease (COPD) (Acute) Epistaxis (Acute) Epistaxis (Acute) HTN (hypertension) (Chronic) Hyperlipidemia (Chronic) COPD (chronic obstructive pulmonary disease) (Chronic) Upper respiratory infection (Acute) Epistaxis (Acute) Hypotension (Acute) Epistaxis (Acute) Medical History (Updated 09/27/23 @ 21:38 by Mikayla Benavides PA-C) History of COVID-19 03/26/22 (Adriel PCR) Symptoms at time: SOB, rx paxlovid > symptoms resolved Kidney stones hx Migraine hx Chronic obstructive pulmonary disease Chronic cough Hyperlipidemia Hypertension Anemia Surgical History (Updated 09/27/23 @ 21:30 by Mikayla Benavides PA-C) Hx of inguinal hernia repair LT-2003, 2021 History of ERCP Gallstone extraction History of cystoscopy WITH REMOVAL KIDNEY STONE History of colonoscopy Family History Other No known health problems Social History Smoking Status: Former smoker Tobacco Type: Cigarettes Cigarettes Per Day: 0.5 ppd; Second Hand Exposure: Yes; Do You Dip or Chew Tobacco: No; Hx Alcohol Use: No Hx Substance Use: No Preferred Language: Japanese Communication Ability: Effective Patient Support Assistant Required: No Beliefs That Will Affect Care: None Current Living Situation: Alone current occupational status: retired Feels Safe at Home: Yes Assistive Devices: None Review of Systems Review of Systems: At least ten systems reviewed and negative except as noted in the HPI. Physical Exam Physical Exam: General Appearance: WD/WN, +thin, pleasant, conversing easily Head: normocephalic, atraumatic Eyes: EOMI intact R eye, + L eye blindness ENT: external ear and nose normal, oropharynx normal Neck: normal visual inspection, trachea midline, no thyromegaly Respiratory: normal respiratory effort, diminished breath sounds, + scattered expiratory wheezes, no accessory muscle use Cardiovascular: tachycardic rate, regular rhythm, normal peripheral pulses, no BLE edema Chest: normal inspection of chest Abdomen/GI: normal bowel sounds, soft, nontender, no hepatosplenomegaly Extremities/Musculoskeletal: no cyanosis or clubbing, extremities motor strength 5/5 Neurologic: PERRL, EOMI, accommodation nl, no face palsy, no dysarthria, CN's II-XI intact bilaterally and moves all extremities Psychiatric: A+Ox3, euthymic affect Skin: no rashes, normal color, warm/dry Results & Data Results & Data Vital Signs (Past 12 Hours) Vital Signs Temp Pulse Pulse Resp BP BP Pulse Ox 09/27/23 15:32 102 H 09/27/23 15:00 26 H 99 09/27/23 14:39 105 H 22 92 09/27/23 14:10 108 H 23 115/77 92 09/27/23 14:10 110 H 29 H 94 09/27/23 14:10 09/27/23 13:56 110 H 18 98 09/27/23 12:00 90 09/27/23 12:00 36.6 C 120 H 20 138/83 90 O2 Del Method O2 Flow Rate 09/27/23 15:32 09/27/23 15:00 Nebulizer 09/27/23 14:39 Nasal Cannula 3 09/27/23 14:10 Nasal Cannula 3 09/27/23 14:10 Nasal Cannula 3 09/27/23 14:10 Nasal Cannula 3 09/27/23 13:56 Nebulizer 09/27/23 12:00 Nasal Cannula 2 09/27/23 12:00 Room Air Laboratory Results Short CBC 09/27/23 Range/Units 12:58 WBC 17.72 H (4.8-10.8) K/ul Hgb 14.3 (14.0-18.0) g/dl Hct 44.5 (42.0-52.0) % Plt Count 320 (130-400) K/uL BMP 09/27/23 12:58 Sodium 137 Potassium 4.0 Chloride 101 Carbon Dioxide 27 BUN 26 H Creatinine 1.10 Glucose 119 H Calcium 9.6 Liver Function 09/27/23 Range/Units 12:58 Total Bilirubin 2.4 H (0.2-1.0) mg/dl AST 17 (13-39) U/L ALT 17 (7-52) U/L Alkaline Phosphatase 87 (34-104) U/L Albumin 4.1 (3.4-5.0) gm/dl Diagnostic Findings Chest X-Ray 09/27/23 12:04 XR chest 1V portable CLINICAL HISTORY: Chest pain, nonspecific COMPARISON STUDY: Chest radiograph and chest CT August 01, 2023. FINDINGS: There is severe emphysema. No pneumothorax or pleural effusion is present. Left basilar airspace opacity is noted. Bilateral lower lung inters titial thickening is similar to prior exam. There may be minimal right basilar opacity. Cardiomediastinal silhouette is normal. IMPRESSION: 1. Left basilar opacity suspicious for pneumonia. Radiographic follow-up to ensure resolution is recommended. 2. Persistent lower lung interstitial thickening which may also be infectious in etiology. 3. Severe emphysema. ACT 112: Negative or not required by law. Electronically signed by: Christopher Florez M.D. 09/27/2023 3:[address] 09/27/23 15:37 CT chest diagnostic wo con CLINICAL HISTORY: COPD, PNA TECHNIQUE: Multidetector row helical CT of the chest was performed. Coronal and sagittal reformations were obtained. Automated dose lowering techniques and/or adjustment according to patient size were utilized for this exam. CT DOSE: 245.34 mGy.cm Comparison: Comparison is made to CT chest 08/01/2023 FINDINGS: Lungs and pleura: Diffuse emphysema is seen most prominent in the upper lobes. Bronchial wall thickening, mucus plugging, and consolidative opacities are seen most prominent in the lower lobes. 5 mm nodules are in the right upper lobe (series 4 images 67 and 98). Heart and pericardium: Heart size is normal. No pericardial effusion. Vessels: Moderate atherosclerotic changes in the aorta and coronary arteries. Mediastinum and deion: Subcentimeter lymph nodes are seen. Chest wall and lower neck: Unremarkable. Abdomen: Patient is status post cholecystectomy. Renal cysts are seen. Bones: Degenerative changes in the thoracic spine. IMPRESSION: Bronchial wall thickening and consolidative opacities compatible with pneumonia. Emphysema is seen. Stable pulmonary nodules as above. Reactive lymph nodes are seen. ACT 112: Negative or not required by law. Electronically signed by: Howard Flaherty M.D. 09/27/2023 4:41 PM Supervising Physician Co-Signing Physician Notes delayed entry date of service noted above Attending Addendum: care coordinated in detail with SANDRA Mikayla Benavides please refer to her notes for full details, I agree with her notes patient seen and examined, records reviewed by myself as well Diagnoses and plan of care formulated with SANDRA Mikayla Benavides, please refer to her notes Mulugeta Bhagat MD (5) Pneumonia Laterality: unspecified laterality Lung location: unspecified part of lung Pneumonia type: due to unspecified organism Qualified Code(s): J18.9 - Pneumonia, unspecified organism
--- NOTE | 2023-09-27 16:44 | CT Scan Report ---
CT chest diagnostic wo con CLINICAL HISTORY: COPD, PNA TECHNIQUE: Multidetector row helical CT of the chest was performed. Coronal and sagittal reformations were obtained. Automated dose lowering techniques and/or adjustment according to patient size were u tilized for this exam. CT DOSE: 245.34 mGy.cm Comparison: Comparison is made to CT chest 08/01/2023 FINDINGS: Lungs and pleura: Diffuse emphysema is seen most prominent in the upper lobes. Bronchial wall thicken ing, mucus plugging, and consolidative opacities are seen most prominent in the lower lobes. 5 mm nod ules are in the right upper lobe (series 4 images 67 and 98). Heart and pericardium: Heart size is normal. No pericardial effusion. Vessels: Moderate atherosclerotic changes in the aorta and coronary arteries. Mediastinum and deion: Subcentimeter lymph nodes are seen. Chest wall and lower neck: Unremarkable. Abdomen: Patient is status post cholecystectomy. Renal cysts are seen. Bones: Degenerative changes in the thoracic spine. IMPRESSION: Bronchial wall thickening and consolidative opacities compatible with pneumonia. Emphysema is seen. S table pulmonary nodules as above. Reactive lymph nodes are seen. ACT 112: Negative or not required by law. Electronically signed by: Howard Flaherty M.D. 09/27/2023 4:41 PM
[2023-09-27] MEDS: dexAMETHasone**PF** 10 MG/ML VIAL IV ONE (16:52)
[2023-09-27] MEDS: levoFLOXacin/D5W 750 MG/150 ML BAG IV STA (16:52)
[2023-09-27] MEDS: REMDESIVIR 200 MG in SODIUM CHLORIDE 0.9% 210 ML IV ONE (18:33)
[2023-09-27] MEDS ORDERED: BENZONATATE 100 MG CAPSULE PO PRN (18:38)
[2023-09-27] MEDS ORDERED: ALBUTEROL HFA 8 GM INHALER INH PRN (18:38)
[2023-09-27] MEDS ORDERED: ALBUT/IPRATROP 3MG/0.5MG NEB 3 ML VIAL INH PRN (18:38)
[2023-09-27] MEDS ORDERED: NICOTINE POLACRILEX 2 MG GUM MT PRN (18:38)
[2023-09-27] MEDS ORDERED: ACETAMINOPHEN 325 MG TAB PO PRN (18:38)
[2023-09-27] MEDS ORDERED: POLYETHYLENE (MIRALAX) 17 GM PACK PO PRN (18:38)
[2023-09-27] MEDS ORDERED: guaiFENesin 600 MG TABCR PO PRN (18:38)
[2023-09-28 06:34] LABS: Hematocrit (blood only) 36.4 % (42.0-52.0); Hemoglobin 11.9 g/dl (14.0-18.0); Mean Corpuscular Hemoglobin 27.9 pg (25.0-34.0); Mean Corpuscular Hgb Conc 32.7 g/dL (32.0-36.0); Mean Corpuscular Volume 85.4 fL (80.0-100.0); Mean Platelet Volume 10.5 fL (9.4-12.4); Platelet Count 248 K/uL (130-400); RDW Coefficient of Variation 16.5 % (11.5-14.5); RDW Standard Deviation 51.4 fL (36.4-46.3); Red Blood Count 4.26 M/uL (4.70-6.10)
[2023-09-28] MEDS: ALBUT/IPRATROP 3MG/0.5MG NEB 3 ML VIAL INH SCH (07:00)
[2023-09-28 07:18] LABS: Albumin Level 3.3 gm/dl (3.4-5.0); Bilirubin Direct 0.2 mg/dl (0-0.2); Bilirubin,Total 0.8 mg/dl (0.2-1.0); Calcium 8.6 mg/dl (8.6-10.3); Creatinine Clr Calc Pharmacy 41.2 ml/min; Est GFR (African American) 87.5 ml/min; Est GFR (Non-African American) 75.5 ml/min; Potassium 3.7 mmol/L (3.5-5.1); Total Protein 6.1 gm/dl (6.0-8.3)
[2023-09-28] MEDS: FLUTICASONE PROPIONATE NA SPR 16 GM BTL NAE SCH (08:45)
[2023-09-28] MEDS: UMECLIDINIUM/VILANTEROL 62.5/25MCG 7 PUFFS/INHALER INH SCH (08:46)
[2023-09-28] MEDS: FLUTICASONE FUROATE 100MCG 14 PUFFS/INHALER INH SCH (08:48)
[2023-09-28] MEDS: NICOTINE 14 MG/24 HR PATCH TD SCH (08:48)
[2023-09-28] MEDS: dexAMETHasone 6 MG in SYRINGE 0 ML IV SCH (08:49)
[2023-09-28] MEDS: hydroCHLOROthiazide 25 MG TAB PO SCH (08:51)
[2023-09-28] MEDS: LOSARTAN POTASSIUM 50 MG TAB PO SCH (08:52)
[2023-09-28] MEDS: ATORVASTATIN 40 MG TAB PO SCH (08:52)
[2023-09-28] MEDS ORDERED: DEXAMETHASONE SOD INJ 4 MG/ML VIAL IV SCH (09:00)
[2023-09-28] MEDS ORDERED: NON-FORMULARY MEDICATION (Fluticasone-Umeclidin-Vilanter [Trelegy Ellipta] 100-62.5-25 mcg INH SCH (09:00)
--- NOTE | 2023-09-28 14:02 | Hospitalist Progress Note ---
Date of Service September 28, 2023 Assessment & Plan (1) Acute exacerbation of chronic obstructive pulmonary disease (COPD): (2) Bullous emphysema: (3) COVID-19: (4) Sepsis: (5) Pneumonia: Plan: on admission, Afebrile, HR 120 RR 29, WBC 17k on admission, lactate wnl - WBC improving. Vital stable. Resp viral panel + for covid, rhinovirus CT chest with bronchial wall thickening and consolidative opacities compatible with pneumonia. Emphysema is seen. Stable pulmonary nodules as above. Reactive lymph nodes are seen Improving On Levaquin, Remdesivir, Decadron, Isolation precautions Mucinex BID, cont home inhalers, Duoneb QIDR, tessalon perles, flutter valve Patient is on room air during my encounter. (6) HTN (hypertension): Plan: Continue losartan with hold parameters. will hold HCTZ for now. (7) Hyperlipidemia: Plan: Chronic, stable. Continue statin (8) Tobacco use: Plan: Recently quit. Continue nicotine patch, gum PRN (9) Pulmonary cachexia due to chronic obstructive pulmonary disease: Plan: BMI 15.2. Continue Ensure BID DVT Ppx: SQ heparin Code status: conditional code (Yes to CPR, shock, NO to intubation or mech vent) Dispo:Anticipate discharge home pending medical stability. Updated family at bedside Admission and Anticipated Discharge Date Admission Date: September 27, 2023 Subjective patient was seen and examined at bedside in presence of nephew. he feels much better. He is hungry and waiting for his lunch. He denies any shortness of breath, cough, chest pain, fever or chills. Review of Systems Review of Systems: All systems reviewed & are unremarkable except as noted in Subjective Physical Exam Physical Exam: General: Thin frail elderly male, lying comfortably in bed, not in distress, on room air HEENT: EOMI, [place], MMM Chest: fair breath sounds bilaterally CVS: Regular rate and rhythm, normal heart sounds, no murmur Abdomen: Soft, non tender, not distended, normal bowel sounds Neuro: Awake, alert, oriented, conversing well, non focal Extremities: No cyanosis, clubbing or edema Results & Data Results & Data Vital Signs (Past 12 Hours) Vital Signs Pulse Pulse Pulse Resp BP BP Pulse Ox 09/28/23 11:20 78 16 92 09/28/23 11:01 09/28/23 10:52 82 18 137/69 92 09/28/23 10:30 93 H 09/28/23 09:06 75 19 121/76 91 09/28/23 08:17 79 09/28/23 08:03 80 20 95 09/28/23 07:00 74 18 97 09/28/23 07:00 126/74 09/28/23 07:00 72 20 93 09/28/23 06:27 69 19 93 09/28/23 06:00 70 18 126/69 92 09/28/23 05:06 68 22 137/70 97 09/28/23 04:01 78 16 111/71 96 09/28/23 03:09 72 21 103/60 96 09/28/23 03:00 O2 Del Method O2 Flow Rate 09/28/23 11:20 Room Air 09/28/23 11:01 Room Air 09/28/23 10:52 Room Air 09/28/23 10:30 09/28/23 09:06 Room Air 09/28/23 08:17 09/28/23 08:03 Nasal Cannula 2 09/28/23 07:00 Nasal Cannula 2 09/28/23 07:00 09/28/23 07:00 Room Air 09/28/23 06:27 Nasal Cannula 2 09/28/23 06:00 Nasal Cannula 2 09/28/23 05:06 Nasal Cannula 2 09/28/23 04:01 Nasal Cannula 2 09/28/23 03:09 Nasal Cannula 2 09/28/23 03:00 Nasal Cannula 2 Laboratory Results Short CBC 09/28/23 Range/Units 06:02 WBC 13.50 H (4.8-10.8) K/ul Hgb 11.9 L (14.0-18.0) g/dl Hct 36.4 L (42.0-52.0) % Plt Count 248 (130-400) K/uL BMP 09/28/23 06:02 Sodium 137 Potassium 3.7 Chloride 105 Carbon Dioxide 25 BUN 33 H Creatinine 0.97 Glucose 137 H Calcium 8.6 Liver Function 09/28/23 Range/Units 06:02 Total Bilirubin 0.8 D (0.2-1.0) mg/dl Direct Bilirubin 0.2 (0-0.2) mg/dl AST 13 (13-39) U/L ALT 13 (7-52) U/L Alkaline Phosphatase 68 (34-104) U/L Albumin 3.3 L (3.4-5.0) gm/dl (5) Pneumonia Laterality: unspecified laterality Lung location: unspecified part of lung Pneumonia type: due to unspecified organism Qualified Code(s): J18.9 - Pneumo hari, unspecified organism
--- OUTSIDE RECORDS SUMMARY | 2023-09-28 14:22 | External Medical Summary | Summary of Care ---
Author Name Unknown Organization [facility] Address [address] [place] [place] [address] Phone [phone] Care Team Providers Care Home Day Care Provider Name Role Phone Chavez Olivera MD Primary Care Provider + Reason for Visit * Reason Comments Medication Refill Encounter Details Date Type Department Care Team (Late st Contact Info) Description 09/14/2023 Refill General Internal Medicine [facility] [address] [facility] [place] [address] Chavez Olivera MD 200 [facility] [place] [address] HTN, goal below 140/90; Benign hypertension with CKD (chronic kidney disease) stage III ([facility]) Allergies Active Allergy Reactions Criticality Noted Date Comments Bee Venom 10/21/2014 Cefuroxime Axetil Rash Medium 08/12/2012 Food (See Comments) Diarrhea 08/01/2022 ALL nuts Nutritional Supplements Edema airway High 10/20/2012 documented as of this encounter (statuses as of 09/16/2023) Medications Medication Sig Dispensed Refills Start Date End Date Status Nebulizer System All-In-One Use as directed. Active hydroCHLOROthiazide 25 MG Oral Tablet (Hydrodiuril)Indica tions:HTN, goal below 140/90 TAKE 1 TABLET BY MOUTH DAILY. 90 Tablet 3 03/27/2021 Active Ipratropium-Albuter ol 0.5-2.5 (3) MG/3ML Inhalation Solution (Duoneb)Indications :COPD, group D, by GOLD 2017 classification ([facility]) INHALE 3 ML (ONE VIAL) VIA NEBULIZER FOUR TIMES A DAY NEEDED 360 mL 3 09/25/2022 Active EPINEPHrine 0.3 MG/0.3ML Injection Solution Auto-injector (Autoinjector)Indic ations:Bee sting allergy For a severe reaction: Place orange end against the outer thigh, press firmly, hold in place for 10 seconds and go to the Emergency room. 2 Each 3 11/30/2022 Active Albuterol Sulfate HFA 108 (90 Base) MCG/ACT Inhalation Aerosol SolutionIndications :COPD, group B, by GOLD 2017 classification ([facility]) INHALE 2 PUFFS BY MOUTH EVERY 4 HOURS NEEDED FOR COUGH, SHORTNESS OF BREATH OR WHEEZING. 18 g 11 05/22/2023 5 Active Trelegy Ellipta 100-62.5-25 MCG/ACT Aerosol Powder Breath Activated (Fluticasone-Umecli dinium-Vilanterol)I ndications:COPD, group D, by GOLD 2017 classification ([facility]) Inhale 1 Puff by mouth in the morning. Rinse mouth and gargle with water after use.. 60 Each 11 06/24/2023 Active Fluticasone Propionate 50 MCG/ACT Nasal Suspension (Flonase)Indication s:COPD, moderate ([facility]),Chronic rhinitis Administer 2 Sprays into each nostril in the morning. 16 g 2 07/24/2023 Active Atorvastatin Calcium 40 MG Oral Tablet (Lipitor)Indication s:Hyperlipidemia Take 1 Tablet by mouth in the morning. 90 Tablet 1 07/26/2023 Active Benzonatate 100 MG Oral Capsule (Tessalon Perles) take 1 capsule (100 mg) orally three times a day for 5 days 15 Capsule 08/02/2023 Active guaiFENesin ER 600 MG Oral Tablet Extended Release 12 Hour (Humibid LA) take 2 tablets (1200 mg) orally every twelve hours for 5 days 20 Tablet 08/02/2023 Active levoFLOXacin 750 MG Oral Tablet (Levaquin) take 1 tablet (750 mg) orally daily for 6 days 6 Tablet 08/02/2023 Active predniSONE 20 MG Oral Tablet (Deltasone) take 2 tablets ( 40 mg) daily x 3 days, then 1 tablet (20 mg) daily for next 3 days. 9 Tablet 08/02/2023 Active Nicotine 14 MG/24HR Transdermal Patch 24 Hour (Nicoderm CQ)Indications:Toba sales account specialist use disorder One 14 mg patch daily for 2 wks; then one 7 mg patch daily for 2 wks. Remove old patch daily Do not start before September 19, 2023. 45 Patch 09/19/2023 4 Active Nicotine 7 MG/24HR Transdermal Patch 24 Hour (Nicoderm CQ)Indications:Toba sales account specialist use disorder One 7 mg patch daily for 2 weeks; Remove old patch daily; and then stop. 14 Patch 1 08/08/2023 Active Nicotine Polacrilex 2 MG Mouth/Throat Gum (GNP Nicotine)Indication s:Tobacco use disorder Take 2 Each by mouth 4 times a day as needed for Other (smoking urge). 40 Each 1 08/08/2023 Active Losartan Potassium 50 MG Oral Tablet (Cozaar)Indications :HTN, goal below 140/90,Benign hypertension with CKD (chronic kidney disease) stage III (HCC) TAKE 1 TABLET BY MOUTH IN THE MORNING 100 Tablet 3 09/16/2023 Active Losartan Potassium 50 MG Oral Tablet (Cozaar)Indications :HTN, goal below 140/90,Benign hypertension with CKD (chronic kidney disease) stage III (HCC) TAKE 1 TABLET BY MOUTH IN THE MORNING 100 Tablet 2 01/25/2023 4 Discontinue d(Refill) documented as of this encounter (statuses as of 09/16/2023) Active Problems Problem Noted Date Diagnosed Date [...] as of this encounter (statuses as of 09/16/2023) Resolved Problems Problem Noted Date Diagnosed Date [...] as of this encounter (statuses as of 09/16/2023) Immunizations Name Administration Dates Next Due COVID-19 mRNA, LNP-s, No Pre serve, 2-Dose Series (Moderna) 08/24/2020,07/12/2020 COVID-19, mRNA, LNP-s, PF, B ooster, 100mcg/0.5mg (Moderna) 11/13/2021,04/12/2021,07/22/2020 Pneumococcal Conjugate Vacc, 13 Valent (Prevnar) 08/12/2015 Pneumococcal Polysaccharide PPV23 (Pneumovax) 01/22/2013 TDAP (age 10 and older)(Boostrix) 08/13/2007 documented as of this encounter Social History Tobacco Use Types Packs/Day Years Used Date Smoking Tobacco: Every Day Cigarettes 1.3 50 Cigars Smokeless Tobacco: Never Comments:06/24/2023: began s [...] encounter Miscellaneous Notes * Telephone Encounter - Lashay Tejeda RPh - 09/16/2023 9:36 AM EDTSigned Prescriptions: Disp Refills Losartan Potassium 50 MG Oral Tablet (Coza*100 Ta*3 Sig: TAKE 1 TABLET BY MOUTH IN THE MORNINGAuthorizing Provider: CHAVEZ OLIVERA User: LASHAY TEJEDA documented in this encounter Plan of Treatment Upcoming Encounters Date Type Department Care Team (Late st Contact Info) Description 09/30/2023 3:30 PM EDT Office Visit Urology, [facility] [address] [facility] [place] [address] Trae Montejo MD [address] [facility] [address] [place] [address] 11/19/2023 10:30 AM EDT Nurse Only Ancillary [facility] [address] [place] [address] Im, Nurse Annual Wellness [facility] 200 [facility] [place] [address] 02/06/2024 10:00 AM EDT Office Visit Dermatology [facility] [address] [facility] [place] [address] Chavez Fam MD 200 [facility] [place] [address] 02/21/2024 10:00 AM EDT Office Visit General Internal Medicine [facility] [address] [place] [address] Chavez Olivera MD [address] [facility] [place] [address] 03/04/2024 10:00 AM EST Office Visit Pulmonary Medicine, [facility] [address] [facility] [place] [address] Miguelangel Angela MD [address] [facility] [facility] [address] 03/09/2024 9:00 AM EST Imaging Radiology [facility] [address] [facility] [place] [address] Health Maintenance Due Date Last Done Comments Zoster Vaccines (1 of 2) 08/08/1997 DTaP,Tdap,and Td Vaccines (2 - Td or Tdap) 08/12/2017 08/13/2007 DISCUSS TOBACCO CESSATION (REFER TO SMARTSET #3291) 11/09/2022 11/09/2021, 11/16/2020, 2014 (Discussed) COVID-19 Vaccine ( season) 2022 11/13/2021, 04/12/2021, 08/24/2020, Additional history exists Depression Screening 11/13/2023 11/12/2022, 08/10/19 15 Influenza Vaccine (FLU shot) (Season Ended) 2023 O2 ASSESSMENT COMPLETED IN PAST YEAR FOR COPD 08/13/2024 08/14/2023 GFR 08/21/2024 08/22/2023, 06/28, 01/10/2023, Additional history exists Albumin/Creatinine Ratio 01/10/2026 023, 12/15/2021, 02/08/2014 Colonoscopy 2027 08/08/2022, 07/28, 11/04/2019, Additional history exists Pneumococcal Vaccine: 65+ Years Completed 08/12/2015, 01/22/2013 Alpha-1 Antitrypsin Completed 11/09/2021 RETIRED - COLONOSCOPY-EVERY 5 YRS AGES 18-100 Discontinued 08/08/2022, 08/08/2022, 11/04/2019, Additional history exists GARDASIL-HPV IMMUNIZATION SERIES Aged Out No longer [...] HTN, goal below 140/90 Unspecified essential hypertension Benign hypertension with CKD (chronic kidney disease) stage III (HCC) Benign hypertensive kidney disease with chronic kidney disease stage I through stage IV, or unspecified documented in this encounter Care Teams Home Day Care Provider Relationship Specialty Start Date End Date Chavez Olivera MD [address] [place] [address] PCP - General Internal Medicine 08/12/12 documented as of this encounter
--- OUTSIDE RECORDS SUMMARY | 2023-09-28 14:22 | External Medical Summary | Summary of Care ---
Author Name Unknown Organization [facility] Address [address] [place] [address] Phone [phone] Care Team Providers Care Interactive Media Designer Name Role Phone Chavez Francois MD Primary Care Provider + Reason for Visit * Reason Onset Date Comments Encounter Created in Error 06/24/2023 Encounter Details Date Type Department Care Team (Late st Contact Info) Description 06/24/2023 Telephone Pulmonary Medicine, [place] [address] [place] [address] Blade Schneider, DO [address], [place] [id number] Encounter Created in Error Allergies Active Allergy Reactions Criticality Noted Date Comments Bee Venom 10/21/2014 Cefuroxime Axetil Rash Medium 08/12/2012 Food (See Comments) Diarrhea 08/01/2022 ALL nuts Nutritional Supplements Edema airway High 10/20/2012 documented as of this encounter (statuses as of 09/23/2023) Medications Medication Sig Dispensed Refills Start Date End Date Status Nebulizer System All-In-One Use as directed. Active hydroCHLOROthiazide 25 MG Oral Tablet (Hydrodiuril)Indica tions:HTN, goal below 140/90 TAKE 1 TABLET BY MOUTH DAILY. 90 Tablet 3 03/27/2021 Active Ipratropium-Albuter ol 0.5-2.5 (3) MG/3ML Inhalation Solution (Duoneb)Indications :COPD, group D, by GOLD 2017 classification ([facility]) INHALE 3 ML (ONE VIAL) VIA NEBULIZER [...] :COPD, group B, by GOLD 2017 classification ([facility]) INHALE 2 PUFFS BY MOUTH EVERY 4 HOURS NEEDED FOR COUGH, SHORTNESS OF BREATH OR WHEEZING. 18 g 11 05/22/2023 5 Active Trelegy Ellipta 100-62.5-25 MCG/ACT Aerosol Powder Breath Activated (Fluticasone-Umecli dinium-Vilanterol)I ndications:COPD, group D, by GOLD 2017 classification ([facility]) Inhale 1 Puff by mouth in the morning. Rinse mouth and gargle with water after use.. 60 Each 11 06/24/2023 Active fluticasone (FLONASE) 50 MCG/ACT nasal sprayIndications:CO PD, moderate ([facility]),Chronic rhinitis Administer 2 Sprays into each nostril daily. 16 g 2 09/14/2019 4 Discontinue d(Refill) Atorvastatin Calcium 40 MG Oral Tablet (Lipitor)Indication s:Hyperlipidemia Take 1 Tablet by mouth in the morning. 90 Tablet 3 07/25/2022 4 Discontinue d(Refill) Losartan Potassium 50 MG Oral Tablet (Cozaar)Indications :HTN, goal below 140/90,Benign hypertension with CKD (chronic kidney disease) stage III ([facility]) TAKE 1 TABLET BY MOUTH IN THE MORNING 100 Tablet 2 01/25/2023 4 Discontinue d(Refill) documented as of this encounter (statuses as of 09/23/2023) Active Problems Problem Noted Date Diagnosed Date [...] as of this encounter (statuses as of 09/23/2023) Resolved Problems Problem Noted Date Diagnosed Date [...] as of this encounter (statuses as of 09/23/2023) Immunizations Name Administration Dates Next Due COVID-19 [...] 09/30/2023 3:30 PM EDT Office Visit Urology, [facility] [address] [facility] [place] [address] Trae Montejo MD [address] [facility] [address] [place] [address] 11/19/2023 10:30 AM EDT Nurse Only Ancillary [facility] [address] [place] [address] Im, Nurse Annual Wellness [facility] [address] [place], [place] [address] 02/06/2024 10:00 AM EDT Office Visit Dermatology [facility] [address] [place] [address] Chavez Fam MD [address] [place] [address] 02/21/2024 10:00 AM EDT Office Visit General Internal Medicine [facility] [address] [place] [address] Chavez Francois MD [address] [facility] [place] [address] 03/04/2024 10:00 AM EST Office Visit Pulmonary Medicine, [facility] [address] [facility] [place] [address] Miguelangel Angela MD [address] [facility] [address] 03/09/2024 9:00 AM EST Imaging Radiology [facility] [address] [facility] [place] [address] Health Maintenance Due Date Last Done Comments Zoster Vaccines (1 of 2) 08/08/1997 DTaP,Tdap,and Td Vaccines (2 - Td or Tdap) 08/12/2017 08/13/2007 DISCUSS TOBACCO CESSATION (REFER TO SMARTSET #3291) 11/09/2022 11/09/2021, 11/16/2020, 2014 (Discussed) COVID-19 Vaccine ( season) 2022 11/13/2021, 04/12/2021, 08/24/2020, Additional history exists Depression Screening 11/13/2023 11/12/2022, 08/10/19 Influenza Vaccine (FLU shot) (Season Ended) 2023 [...] filedocumented as of this encounter Care Teams Interactive Media Designer Relationship Specialty Start Date End Date Chavez Francois MD [address] [place] [address] PCP - General Internal Medicine 08/12/12 documented as of this encounter
--- OUTSIDE RECORDS SUMMARY | 2023-09-28 14:23 | External Medical Summary | Summary of Care ---
Author Name Unknown Organization [facility] Address [address] [facility] [place] [address] Phone [phone] Care Team Providers Care Assessment Expert Name Role Phone Chavez Francois MD Primary Care Provider + Reason for Visit * Reason Onset Date Comments Test Results 08/23/2023 Encounter Details Date Type Department Care Team (Late st Contact Info) Description 08/23/2023 Telephone General Internal Medicine [facility] 200 [place] [address] Chavez Francois MD 200 [facility] [address] Test Results Allergies Active Allergy Reactions Criticality Noted Date Comments Bee Venom 10/21/2014 Cefuroxime Axetil Rash Medium 08/12/2012 Food (See Comments) Diarrhea 08/01/2022 ALL nuts Nutritional Supplements Edema airway High 10/20/2012 documented as of this encounter (statuses as of 08/23/2023) Medications Medication Sig Dispensed Refills Start Date End Date Status Nebulizer System All-In-One Use as directed. 0 Active hydroCHLOROthiazide 25 MG Oral Tablet (Hydrodiuril)Indicat ions:HTN, goal below 140/90 TAKE 1 TABLET BY MOUTH DAILY. 90 Tablet 3 03/27/2021 Active Ipratropium-Albutero l 0.5-2.5 (3) MG/3ML Inhalation Solution (Duoneb)Indications: COPD, group D, by GOLD 2017 classification ([facility]) INHALE 3 ML (ONE VIAL) VIA NEBULIZER [...] CKD (chronic kidney disease) stage III ([facility]) TAKE 1 TABLET BY MOUTH IN THE MORNING 100 Tablet 2 01/25/2023 Active Albuterol Sulfate HFA 108 (90 Base) MCG/ACT Inhalation Aerosol SolutionIndications: COPD, group B, by GOLD 2017 classification ([facility]) INHALE 2 PUFFS BY MOUTH EVERY 4 HOURS NEEDED FOR COUGH, SHORTNESS OF BREATH OR WHEEZING. 18 g 11 05/22/2023 05/21/2024 Active Trelegy Ellipta 100-62.5-25 MCG/ACT Aerosol Powder Breath Activated (Fluticasone-Umeclid inium-Vilanterol)Ind ications:COPD, group D, by GOLD 2017 classification ([facility]) Inhale 1 Puff by mouth in the morning. Rinse mouth and gargle with water after use.. 60 Each 11 06/24/2023 Active Fluticasone Propionate 50 MCG/ACT Nasal Suspension (Flonase)Indications :COPD, moderate ([facility]),Chronic rhinitis Administer 2 Sprays into each nostril in the morning. 16 g 2 07/24/2023 Active Atorvastatin Calcium 40 MG Oral Tablet (Lipitor)Indications :Hyperlipidemia Take 1 Tablet by mouth in the morning. 90 Tablet 1 07/26/2023 Active Benzonatate 100 MG Oral Capsule (Tessalon Perles) take 1 capsule (100 mg) orally three times a day for 5 days 15 Capsule 0 08/02/2023 Active guaiFENesin ER 600 MG Oral Tablet Extended Release 12 Hour (Humibid LA) take 2 tablets (1200 mg) orally every twelve hours for 5 days 20 Tablet 0 08/02/2023 Active levoFLOXacin 750 MG Oral Tablet (Levaquin) take 1 tablet (750 mg) orally daily for 6 days 6 Tablet 0 08/02/2023 Active predniSONE 20 MG Oral Tablet (Deltasone) take 2 tablets ( 40 mg) daily x 3 days, then 1 tablet (20 mg) daily for next 3 days. 9 Tablet 0 08/02/2023 Active Nicotine 14 MG/24HR Transdermal Patch 24 Hour (Nicoderm CQ)Indications:Tobac co use disorder One 14 mg patch daily for 2 wks; then one 7 mg patch daily for 2 wks. Remove old patch daily Do not start before September 19, 2023. 45 Patch 0 09/19/2023 10/03/2023 Active Nicotine 7 MG/24HR Transdermal Patch 24 Hour (Nicoderm CQ)Indications:Tobac co use disorder One 7 mg patch daily for 2 weeks; Remove old patch daily; and then stop. 14 Patch 1 08/08/2023 Active Nicotine Polacrilex 2 MG Mouth/Throat Gum (GNP Nicotine)Indications :Tobacco use disorder Take 2 Each by mouth 4 times a day as needed for Other (smoking urge). 40 Each 1 08/08/2023 Active documented as of this encounter (statuses as of 08/23/2023) Active Problems Problem Noted Date Diagnosed Date [...] as of this encounter (statuses as of 08/23/2023) Resolved Problems Problem Noted Date Diagnosed Date [...] as of this encounter (statuses as of 08/23/2023) Immunizations Name Administration Dates Next Due COVID-19 [...] Encounter - Meg Antonio MED ASSIST - 08/23/2023 4:32 PM EDT Patient aware and verbalized understanding Pt is already taking MVI * Telephone Encounter - Meg Antonio MED ASSIST - 08/23/2023 4:31 PM EDT ----- Message from Justina Humphrey MD sent at 08/22/2023 7:11 PM EDT ----- Labs - mild anemia which could be from being sick with pneumonia . If not taking already start MVI daily. Should get that checked with next lab . Keep PCP appoint in January. Hope feeling better now ? normal kidney function documented in this encounter Plan of Treatment Upcoming Encounters Date Type Department Care Team (Late st Contact Info) Description 09/30/2023 3:30 PM EDT Office Visit Urology, [facility] 132 [facility] [place] [address] Trae Montejo MD [address] [facility] [place] [address] 11/19/2023 10:30 AM EDT Nurse Only Ancillary [facility] [address] [place] [address] Im, Nurse Annual Wellness [facility] [address] [place] [address] 02/06/2024 10:00 AM EDT Office Visit Dermatology [facility] 200 [facility] [place] [address] Chavez Fam MD 200 [facility] [place] [address] 02/21/2024 10:00 AM EDT Office Visit General Internal Medicine [facility] 200 [facility] [place] [address] Chavez Francois MD 200 [facility] [place] [address] 03/04/2024 10:00 AM EST Office Visit Pulmonary Medicine, [facility] 132 [facility] [place] [address] Miguelangel Angela MD [address] [facility] [address] 03/09/2024 9:00 AM EST Imaging Radiology [facility]st [facility] 132 [facility] [place] [address] Health Maintenance Due Date Last Done Comments [...] filedocumented as of this encounter Care Teams Assessment Expert Relationship Specialty Start Date End Date Chavez Francois MD [address] [place] [address] PCP - General Internal Medicine 08/12/12 documented as of this encounter
--- OUTSIDE RECORDS SUMMARY | 2023-09-28 14:23 | External Medical Summary | Summary of Care ---
Author Name Unknown Organization [facility] Address [address] [place] [address] Phone [phone] Care Team Providers Care Pen Or Pencil Assembly Machine Operator Name Role Phone Chavez Francois MD Primary Care Provider + Reason for Visit * Reason Onset Date Comments MyCode Nonconsent - Not interested at this time 08/08/2023 Encounter Details Date Type Department Care Team (Late st Contact Info) Description 08/08/2023 Orders Only Outcomes Research Department [address] [place] [address] Tiara, Donavon, CHRA MyCode Nonconsent Documentation Allergies Active Allergy Reactions Criticality Noted Date Comments Bee Venom 10/21/2014 Cefuroxime Axetil Rash Medium 08/12/2012 Food (See Comments) Diarrhea 08/01/2022 ALL nuts Nutritional Supplements Edema airway High 10/20/2012 documented as of this encounter (statuses as of 08/08/2023) Medications Medication Sig Dispensed Refills Start Date End Date Status Nebulizer System All-In-One Use as directed. 0 Active hydroCHLOROthiazide 25 MG Oral Tablet (Hydrodiuril)Indicat ions:HTN, goal below 140/90 TAKE 1 TABLET BY MOUTH DAILY. 90 Tablet 3 03/27/2021 Active Ipratropium-Albutero l 0.5-2.5 (3) MG/3ML Inhalation Solution (Duoneb)Indications: COPD, group D, by GOLD 2017 classification ([facility]) INHALE 3 ML (ONE VIAL) VIA NEBULIZER [...] with CKD (chronic kidney disease) stage III ([facility]) TAKE 1 TABLET BY MOUTH IN THE MORNING 100 Tablet 2 01/25/2023 Active Albuterol Sulfate HFA 108 (90 Base) MCG/ACT Inhalation Aerosol SolutionIndications: COPD, group B, by GOLD 2017 classification ([facility]) INHALE 2 PUFFS BY MOUTH EVERY 4 HOURS NEEDED FOR COUGH, SHORTNESS OF BREATH OR WHEEZING. 18 g 11 05/22/2023 05/21/2024 Active Trelegy Ellipta 100-62.5-25 MCG/ACT Aerosol Powder Breath Activated (Fluticasone-Umeclid inium-Vilanterol)Ind ications:COPD, group D, by GOLD 2017 classification ([facility]) Inhale 1 Puff by mouth in the morning. Rinse mouth and gargle with water after use.. 60 Each 11 06/24/2023 Active Fluticasone Propionate 50 MCG/ACT Nasal Suspension (Flonase)Indications :COPD, moderate ([facility]),Chronic rhinitis Administer 2 Sprays into each nostril [...] 3 days. 9 Tablet 0 08/02/2023 Active documented as of this encounter (statuses as of 08/08/2023) Active Problems Problem Noted Date Diagnosed Date [...] as of this encounter (statuses as of 08/08/2023) Resolved Problems Problem Noted Date Diagnosed Date [...] as of this encounter (statuses as of 08/08/2023) Immunizations Name Administration Dates Next Due COVID-19 [...] on file documented as of this encounter Progress Notes * Donavon Menjivar CHRA - 08/08/2023 9:13 AM EDT MyCode Nonconsent Documentation Sukumar Andrews was approached in the clinic regarding participation in the MyCode Project and did not consent. 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); COPD, group D, by GOLD 2017 classification (HCC); Bullous emphysema (HCC); Respiratory bronchiolitis interstitial lung disease (HCC); Bronchiectasis without complication (HCC); Chronic rhinitis 08/14/2023 8:20 AM EDT Office Visit Pulmonary Medicine, [facility] [address] [facility] [place] [address] Miguelangel Angela [facility] [address] [facility] [address] 09/30/2023 3:30 PM EDT Office Visit Urology, [facility] [address] [facility] [place] [address] Trae Montejo MD [address] [address] [place] [id number] 11/19/2023 10:30 AM EDT Nurse Only Ancillary [facility] 200 [facility] [place] [address] Im, Nurse Annual Wellness [facility] [address] [facility] [place] [address] 02/06/2024 10:00 AM EDT Office Visit Dermatology [facility] [address] [place] [address] Chavez Fam MD 200 [facility] [place] [address] 02/21/2024 10:00 AM EDT Office Visit General Internal Medicine [facility] [address] [place], [place] [address] Chavez Francois MD 200 [facility] [place], [place] [address] 03/09/2024 9:00 AM EST Imaging Radiology [address] [facility] [place] [address] Health Maintenance Due Date Last Done Comments [...] filedocumented as of this encounter Care Teams Pen Or Pencil Assembly Machine Operator Relationship Specialty Start Date End Date Chavez Francois MD 200 [place] [address] PCP - General Internal Medicine 08/12/12 documented as of this encounter
--- OUTSIDE RECORDS SUMMARY | 2023-09-28 14:23 | External Medical Summary | Summary of Care ---
Author Name Unknown Organization [facility] Address [address] [facility] [address] Phone [phone] Care Team Providers Care Global Vp Creative + Content Marketing Name Role Phone Chavez Francois MD Primary Care Provider + Reason for Visit * Reason Onset Date Comments Test Results 08/28/2023 Encounter Details Date Type Department Care Team (Late st Contact Info) Description 08/28/2023 Telephone General Internal Medicine [facility] 200 [place] [address] Chavez Francois MD 200 [facility] [address] Test Results Allergies Active Allergy Reactions Criticality Noted Date Comments Bee Venom 10/21/2014 Cefuroxime Axetil Rash Medium 08/12/2012 Food (See Comments) Diarrhea 08/01/2022 ALL nuts Nutritional Supplements Edema airway High 10/20/2012 documented as of this encounter (statuses as of 08/29/2023) Medications Medication Sig Dispensed Refills Start Date End Date Status Nebulizer System All-In-One Use as directed. 0 Active hydroCHLOROthiazide 25 MG Oral Tablet (Hydrodiuril)Indicat ions:HTN, goal below 140/90 TAKE 1 TABLET BY MOUTH DAILY. 90 Tablet 3 03/27/2021 Active Ipratropium-Albutero l 0.5-2.5 (3) MG/3ML Inhalation Solution (Duoneb)Indications: COPD, group D, by GOLD 2017 classification ([facility]) INHALE 3 ML (ONE VIAL) [...] (chronic kidney disease) stage III ([facility]) TAKE 1 TABLET BY MOUTH IN THE MORNING 100 Tablet 2 01/25/2023 Active Albuterol Sulfate HFA 108 (90 Base) MCG/ACT Inhalation Aerosol SolutionIndications: COPD, group B, by GOLD 2017 classification ([facility]) INHALE 2 PUFFS BY MOUTH EVERY 4 HOURS NEEDED FOR COUGH, SHORTNESS OF BREATH OR WHEEZING. 18 g 11 05/22/2023 05/21/2024 Active Trelegy Ellipta 100-62.5-25 MCG/ACT Aerosol Powder Breath Activated (Fluticasone-Umeclid inium-Vilanterol)Ind ications:COPD, group D, by GOLD 2017 classification ([facility]) Inhale 1 Puff by mouth in the morning. Rinse mouth and gargle with water after use.. 60 Each 11 06/24/2023 Active Fluticasone Propionate 50 MCG/ACT Nasal Suspension (Flonase)Indications :COPD, moderate ([facility]),Chronic rhinitis Administer 2 Sprays into [...] as of this encounter (statuses as of 08/29/2023) Active Problems Problem Noted Date Diagnosed Date [...] as of this encounter (statuses as of 08/29/2023) Resolved Problems Problem Noted Date Diagnosed Date [...] as of this encounter (statuses as of 08/29/2023) Immunizations Name Administration Dates Next Due COVID-19 [...] encounter Miscellaneous Notes * Telephone Encounter - Yasmin Choi OSA - 08/29/2023 8:48 AM EDT Patient called back to see what he can take to get his hemoglobin back up. * Telephone Encounter - Meg Antonio MED ASSIST - 08/28/2023 5:16 PM EDT Patient aware and verbalized understanding Pt denied any bleeding * Telephone Encounter - Meg Antonio MED ASSIST - 08/28/2023 5:14 PM EDT ----- Message from Chavez Francois MD sent at 08/25/2023 11:11 AM EDT ----- Hgb a little lower, any blood in stools/bleeding? Check labs 1-2 weeks, will also check iron studies then as well documented in this encounter Plan of Treatment Upcoming Encounters Date Type Department Care Team (Yung valdivia Contact Info) Description 09/30/2023 3:30 PM EDT Office Visit Urology, [facility] 132 [facility] [place] [address] Trae Montejo MD [address] [place] [address] 11/19/2023 10:30 AM EDT Nurse Only Ancillary [facility] [address] [place] [address] Im, Nurse Annual Wellness [facility] 200 [facility] [place] [address] 02/06/2024 10:00 AM EDT Office Visit Dermatology [facility] 200 [facility] [place] [address] Chavez Fam MD 200 [facility] [place] [address] 02/21/2024 10:00 AM EDT Office Visit General Internal Medicine [facility] 200 [facility] [place] [address] Chavez Francois MD 200 [facility] [place] [address] 03/04/2024 10:00 AM EST Office Visit Pulmonary Medicine, [facility] [address] [facility] [place] [address] Miguelangel Angela MD [address] [place] [address] 03/09/2024 9:00 AM EST Imaging Radiology [facility]st [facility] [address] [facility] [place] [address] Health Maintenance Due Date Last Done Comments [...] filedocumented as of this encounter Care Teams Global Vp Creative + Content Marketing Relationship Specialty Start Date End Date Chavez Francois MD [address] [place] [address] PCP - General Internal Medicine 08/12/12 documented as of this encounter
--- OUTSIDE RECORDS SUMMARY | 2023-09-28 14:23 | External Medical Summary | Summary of Care ---
Author Name Unknown Organization [facility] Address [address] [facility] [address] Phone [phone] Care Team Providers Care Supervisor Elementary Education Name Role Phone Chavez Francois MD Primary Care Provider + Reason for Visit * Reason Onset Date Comments Test Results 08/29/2023 Encounter Details Date Type Department Care Team (Late st Contact Info) Description 08/29/2023 Telephone General Internal Medicine [facility] 200 [place] [address] Chavez Francois MD 200 [facility] [address] Test Results Allergies Active Allergy Reactions Criticality [...] COPD, group D, by GOLD 2017 classification ([facility]) INHALE 3 ML (ONE VIAL) VIA [...] with CKD (chronic kidney disease) stage III ([facility]) TAKE 1 TABLET BY MOUTH IN THE MORNING 100 Tablet 2 01/25/2023 Active Albuterol Sulfate HFA 108 (90 Base) MCG/ACT Inhalation Aerosol SolutionIndications: COPD, group B, by GOLD 2017 classification ([facility]) INHALE 2 PUFFS BY MOUTH EVERY 4 HOURS NEEDED FOR COUGH, SHORTNESS OF BREATH OR WHEEZING. 18 g 11 05/22/2023 05/21/2024 Active Trelegy Ellipta 100-62.5-25 MCG/ACT Aerosol Powder Breath Activated (Fluticasone-Umeclid inium-Vilanterol)Ind ications:COPD, group D, by GOLD 2017 classification ([facility]) Inhale 1 Puff by mouth in the morning. Rinse mouth and gargle with water after use.. 60 Each 11 06/24/2023 Active Fluticasone Propionate 50 MCG/ACT Nasal Suspension (Flonase)Indications :COPD, moderate ([facility]),Chronic rhinitis Administer 2 Sprays into each [...] Encounter - Meg Antonio MED ASSIST - 08/29/2023 3:53 PM EDT Patient aware and verbalized understanding * Telephone Encounter - Meg Antonio MED ASSIST - 08/29/2023 3:52 PM EDT ----- Message from Justina Humphrey MD sent at 08/29/2023 2:08 PM EDT ----- CXR - normal. Previous seen pneumonia resolved documented in this encounter Plan of Treatment Upcoming Encounters Date Type Department Care Team (Late st Contact Info) Description 09/30/2023 3:30 PM EDT Office Visit Urology, [facility] 132 [facility] [place] [address] Trae Montejo MD [address] [facility] [address] [place] [address] 11/19/2023 10:30 AM EDT Nurse Only Ancillary [facility] [address] [place], [place] [address] Im, Nurse Annual Wellness [facility] [address] [place], [place] [address] 02/06/2024 10:00 AM EDT Office Visit Dermatology [facility] 200 [facility] [place] [address] Chavez Fam MD 200 [facility] [place] [address] 02/21/2024 10:00 AM EDT Office Visit General Internal Medicine [facility] 200 [facility] [place] [address] Chavez Francois MD 200 [facility] [place], [place] [address] 03/04/2024 10:00 AM EST Office Visit Pulmonary Medicine, [facility] 132 [place] [address] Miguelangel Angela MD [address] [place] [address] 03/09/2024 9:00 AM EST Imaging Radiology [address] 132 [facility] [place] [address] Health Maintenance Due Date Last Done Comments [...] filedocumented as of this encounter Care Teams Supervisor Elementary Education Relationship Specialty Start Date End Date Chavez Francois MD 200 [place] [address] PCP - General Internal Medicine 08/12/12 documented as of this encounter
--- OUTSIDE RECORDS SUMMARY | 2023-09-28 14:23 | External Medical Summary | Summary of Care ---
Author Name Unknown Organization [facility] Address [address] [facility] [address] Phone [phone] Care Team Providers Care Airframe And Power Plant Mechanic Name Role Phone Chavez Francois MD Primary Care Provider + Reason for Visit * Reason Onset Date Comments Test Results 08/28/2023 Encounter Details Date Type Department Care Team (Late st Contact Info) Description 08/28/2023 Telephone General Internal Medicine [facility] 200 [place] [address] Chavez [facility] MD [facility] [address] Test Results Allergies Active Allergy Reactions Criticality [...] Nasal Suspension (Flonase)Indications :COPD, moderate ([facility]),Chronic rhinitis Administer 2 Sprays into each [...] 09/30/2023 3:30 PM EDT Office Visit Urology, [facility] 132 [facility] [place] [address] Trae Montejo MD [address] [place] [address] 11/19/2023 10:30 AM EDT Nurse Only Ancillary [facility] [address] [place] [address] Im, Nurse Annual Wellness [facility] 200 [facility] [place] [address] 02/06/2024 10:00 AM EDT Office Visit Dermatology [facility] 200 [facility] [place] [address] Chavez Fam MD 200 [facility] [place] [address] 02/21/2024 10:00 AM EDT Office Visit General Internal Medicine [facility] 200 [facility] [place] [address] Chavez Francois MD 200 [facility] [place] [address] 03/04/2024 10:00 AM EST Office Visit Pulmonary Medicine, [facility] 132 [facility] [place] [address] Miguelangel Angela MD [address] [place] [address] 03/09/2024 9:00 AM EST Imaging Radiology [facility] 132 [facility] [place] [address] Health Maintenance Due Date Last Done Comments [...] filedocumented as of this encounter Care Teams Airframe And Power Plant Mechanic Relationship Specialty Start Date End Date Chavez Francois MD [address] [place] [address] PCP - General Internal Medicine 08/12/12 documented as of this encounter
--- OUTSIDE RECORDS SUMMARY | 2023-09-28 14:23 | External Medical Summary | Summary of Care ---
Author Name Unknown Organization [facility] Address [address] [place] [address] Phone [phone] Care Team Providers Care Manager Architecture Name Role Phone Chavez Francois MD Primary Care Provider + Reason for Referral * Medication Prior Authorization - Pending Review Specialty Diagnoses / Procedures Referred By Megan minaya Referred To Contact Diagnoses Tobacco use disorder Justina Humphrey MD [address] [place] [address] Referral ID Status Reason Start Date Expiration Date V isits Requested Visits Authorized [id number] Pending Review 999 999 * Medication Prior Authorization - Denied Specialty Diagnoses / Procedures Referred By Megan minaya Referred To Contact Diagnoses Tobacco use disorder Justina Humphrey MD [address] [place] [address] Referral ID Status Reason Start Date Expiration Date Visits Re quested Visits Authorized [id number] Denied 999 999 * Medication Prior Authorization - Pending Review Specialty Diagnoses / Procedures Referred By Megan minaya Referred To Contact Diagnoses Tobacco use disorder Justina Humphrey MD [address] [place] [address] Referral ID Status Reason Start Date Expiration Date V isits Requested Visits Authorized [id number] Pending Review 999 999 Reason for Visit * Reason Onset Date Comments Hospital Follow-Up [facility] d/c --would like to start using nicotine gum to help him quit smoking. 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); HTN, goal below 140/90; COPD, group D, by GOLD 2017 classification ([facility]); Bullous emphysema (HCC); Respiratory bronchiolitis interstitial lung disease (HCC); Bronchiectasis without complication (HCC); Chronic rhinitis Allergies Active Allergy Reactions Criticality Noted Date Comments Bee Venom 10/21/2014 Cefuroxime Axetil Rash Medium 08/12/2012 Food (See Comments) Diarrhea 08/01/2022 ALL nuts Nutritional Supplements Edema airway High 10/20/2012 documented as of this encounter (statuses as of 08/22/2023) Medications Medication Sig Dispensed Refills Start Date End Date Status Nebulizer System All-In-One Use as directed. 0 Active hydroCHLOROthiazide 25 MG Oral Tablet (Hydrodiuril)Indicat ions:HTN, goal below 140/90 TAKE 1 TABLET BY MOUTH DAILY. 90 Tablet 3 03/27/2021 Active Ipratropium-Albutero l 0.5-2.5 (3) MG/3ML Inhalation Solution (Duoneb)Indications: COPD, group D, by GOLD 2017 classification ([facility]) INHALE 3 ML (ONE VIAL) VIA [...] with CKD (chronic kidney disease) stage III ([facility]) TAKE 1 TABLET BY MOUTH IN THE MORNING 100 Tablet 2 01/25/2023 Active Albuterol Sulfate HFA 108 (90 Base) MCG/ACT Inhalation Aerosol SolutionIndications: COPD, group B, by GOLD 2017 classification ([facility]) INHALE 2 PUFFS BY MOUTH EVERY 4 HOURS NEEDED FOR COUGH, SHORTNESS OF BREATH OR WHEEZING. 18 g 11 05/22/2023 05/21/2024 Active Trelegy Ellipta 100-62.5-25 MCG/ACT Aerosol Powder Breath Activated (Fluticasone-Umeclid inium-Vilanterol)Ind ications:COPD, group D, by GOLD 2017 classification ([facility]) Inhale 1 Puff by mouth in the morning. Rinse mouth and gargle with water after use.. 60 Each 11 06/24/2023 Active Fluticasone Propionate 50 MCG/ACT Nasal Suspension (Flonase)Indications :COPD, moderate ([facility]),Chronic rhinitis Administer 2 Sprays into each [...] as of this encounter (statuses as of 08/22/2023) Active Problems Problem Noted Date Diagnosed Date [...] as of this encounter (statuses as of 08/22/2023) Resolved Problems Problem Noted Date Diagnosed Date [...] as of this encounter (statuses as of 08/22/2023) Immunizations Name Administration Dates Next Due COVID-19 [...] Sign Reading Time Taken Comments Blood Pressure 138/78 08/08/2023 9:31 AM EDT Pulse 110 08/08/2023 9:31 AM EDT Temperature 36.3 C (97.3 F) 08/08/2023 9:31 AM ED T Respiratory Rate - - Oxygen Saturation 94% 08/08/2023 9:31 AM EDT Inhaled Oxygen Concentration - - Weight 47.7 kg (105 lb 3.2 oz) 08/08/2023 9:31 A M EDT Height - - Body Mass Index 16.73 07/24/2023 10:13 AM EDT documented in this encounter Progress Notes * Justina Humphrey MD - 08/08/2023 10:07 AM EDT SUBJECTIVE: Sukumar Andrews is a 77 year old male. Chief Complaint Patient presents with Hospital Follow-Up [facility] d/c 08/02/23--would like to start using nicotine gum to help him quit smoking. HPI: 77 year old YOmale with PMH as listed below presents here for hospital follow up. Pt was having cough, shortness of breath for couple days and was worsening , so went to hospital for evaluation . Presented to hospital on August 01, 2023 . He was found to have pneumonia and COPD exacerbation. He was then admitted and treated with IV antibiotic, prednisone and nebulizer. Labs wereoverall normal and Imaging chest x-ray and CT scan showed right upper lobe pneumonia, right hilar prominence,interstitial marking and also significant COPD . Rest of the hospital course unremarkable . He was sent home on August 02, 2023 on Levaquin, prednisone taper and home medication. Since discharge feeling lot better . Hospital records reviewed and updated. The patient's medication list was reviewed and updated as needed. Current issues now- - he has smoked since the age of 18 half to 2 pack a day lately half pack a day and knows need to quit. Asking for nicotine patch prescription - he also been losing weight and PCP been working up for finding cause and so far nothing found. 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 Tobacco use disorder F17.200 HTN, goal below 140/90 I10 Chronic rhinitis J31.0 Lung nodule R91.1 Mixed hyperlipidemia E78.2 COPD, group D, by GOLD 2017 classification ([facility]) J44.9 Respiratory bronchiolitis interstitial lung disease ([facility]) J84.115 Bronchiectasis without complication ([facility]) J47.9 Elevated prostate specific antigen (PSA) R97.20 Pulmonary cachexia due to COPD ([facility]) R64, J44.9 Occupational exposure in workplace Z57.9 Bullous emphysema ([facility]) J43.9 Current Outpatient Medications Medication Sig Dispense Refill Nebulizer System All-In-One Use as directed. hydroCHLOROthiazide 25 MG Oral Tablet (Hydrodiuril) TAKE 1 TABLET BY MOUTH DAILY. 90 Tablet 3 Ipratropium-Albuterol 0.5-2.5 (3) MG/3ML [...] Ellipta 100-62.5-25 MCG/ACT Aerosol Powder Breath Activated (Zinsfrbokhj-Fscortfgdgzm-Ocrigcnkfx) Inhale 1 Puff by mouth in the morning. Rinse mouth and gargle with water after use.. 60 Each 11 Fluticasone Propionate 50 MCG/ACT Nasal Suspension (Flonase) Administer 2 Sprays into each nostril in the morning. 16 g 2 Atorvastatin Calcium 40 MG Oral Tablet (Lipitor) Take 1 Tablet by mouth in the morning. 90 Tablet 1 Benzonatate 100 MG Oral Capsule (Tessalon Perles) take 1 capsule (100 mg) orally three times a day for 5 days 15 Capsule 0 guaiFENesin ER 600 MG Oral Tablet Extended Release 12 Hour (Humibid LA) take 2 tablets (1200 mg) orally every twelve hours for 5 days 20 Tablet 0 levoFLOXacin 750 MG Oral Tablet (Levaquin) take 1 tablet (750 mg) orally daily for 6 days 6 Tablet 0 predniSONE 20 MG Oral Tablet (Deltasone) take 2 tablets ( 40 mg) daily x 3 days, then 1 tablet (20 mg) daily for next 3 days. 9 Tablet 0 No current facility-administered medications for this visit. Review of patient's allergies indicates: Allergen Reactions Nutritional Supplements Edema airway Cefuroxime Axetil Rash Bee Venom Food (See Comments) Diarrhea ALL nuts Past Medical History: Diagnosis Date Benign hypertension with CKD (chronic kidney disease) stage III ([facility]) 03/16/2020 Blind left eye Bronchiectasis without complication ([facility]) 07/29/2019 Chronic rhinitis 10/23/2016 COPD (chronic obstructive pulmonary disease) ([facility]) COPD, moderate ([facility]) 02/12/2013 Diverticulosis Elevated prostate specific antigen (PSA) 09/13/2020 Former tobacco use 03/16/2020 HTN, goal below 140/90 09/18/2012 ILD (interstitial lung disease) ([facility]) Lung nodule Mixed hyperlipidemia 10/03/2017 Respiratory bronchiolitis interstitial lung disease (HCC) 07/29/2019 Tobacco abuse 08/12/2012 Past Surgical History: Procedure Laterality Date COLONOSCOPY, DIAGNOSTIC (RECTUM) 11/05/2014 polyp removed not retrieved, diverticulosis, repeat 5 yrs/COLONOSCOPY FLEXIBLE PROXIMAL DIAGNOSTIC performed by Billy Campbell MD at ENDOSCOPY [facility] COLONOSCOPY, DIAGNOSTIC (RECTUM) 11/04/2019 Stricture in the sigmoid colon / COLONOSCOPY FLEXIBLE PROXIMAL DIAGNOSTIC performed by Billy Campbell MD at ENDOSCOPY [facility] COLONOSCOPY, DIAGNOSTIC (RECTUM) 08/08/2022 diverticulosis / COLONOSCOPY FLEXIBLE PROXIMAL DIAGNOSTIC performed by Al Ramsay MD at ENDOSCOPY [facility] EGD, FLEXIBLE, DIAGNOSTIC 08/08/2022 Schatzki ring, hiatal hernia, normal bx / ESOPHAGOGASTRODUODENOSCOPY (EGD), FLEXIBLE, TRANSORAL, DIAGNOSTIC performed by Al Ramsay MD at ENDOSCOPY [facility] INCISION OF COLON 04/29/2004 bilateral inguinal INJECT DX/THER SUBSTANCE INTERLAMINAR CERVICAL/THORACIC W IMAGE GUIDE 08/21/2018 INJECTION SPINE LUMBAR CERVICAL OR THORACIC performed by [employer] Jeff Rodríguez, DO at OR [facility] INJECT DX/THER SUBSTANCE INTERLAMINAR CERVICAL/THORACIC W IMAGE GUIDE 09/04/2018 INJECTION SPINE LUMBAR CERVICAL OR THORACIC performed by Jeferson Gilmores, DO at OR [facility] PROCEDURE - GENERAL Left 01/08/2022 left inguinal hernia repair by Dr William Lambert REMOVE GALLBLADDER 10/11/[address] Arora [facility] 10/11/12 SURGICAL PROCEDURE ONLY Right 04/16/2022 open repair right inguinal hernia with mesh Family History Problem Relation Age of Onset Stroke Sister Heart Disorder Sister No Known Problems Sister No Known Problems Sister Heart Disorder Brother Other (stent) Brother Social History Socioeconomic History Marital status: Single Number of children: 0 Occupational History Occupation: unemployed, disability 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 Tobacco Use Smoking status: Every [...] use: Not Currently Sexual activity: Not Currently Social History Narrative No pets No mold Lives alone Social Determinants of Health Food Insecurity: No Food Insecurity (11/12/2022) Hunger Vital Sign Worried About Running Out of Food in the Last Year: Never true Ran Out of Food in the Last Year: Never true Family History Problem Relation Age of Onset Stroke Sister Heart Disorder Sister No Known Problems Sister No Known Problems Sister Heart Disorder Brother Other (stent) Brother REVIEW OF SYSTEMS: All 10 systems reviewed and negative except mentioned in HPI OBJECTIVE: BP 138/78 | Pulse 110 | Temp 36.3 C (97.3 F) (Tympanic) | Wt 47.7 kg (105 lb 3.2 oz) | SpO2 94%| BMI 16.73 kg/m | BSA 1.5 m PHYSICAL EXAM: General: alert, no distress, ill looking, and cachectic Head: Normocephalic, No masses, lesions, tenderness or abnormalities Oropharynx: no exudate, lips, buccal mucosa, and tongue normal, mucous membranes are moist, and mild erythema Neck: supple, no adenopathy, no bruits, thyroid normal size, non-tender, without nodularity Heart: regular rate & rhythm, no murmur, and no gallops Lungs: chest symmetric with normal AP diameter, no chest deformities noted, no chest wall tenderness, decreased breath sounds, prolonged expiratory phase, scattered rhonchi bilaterally Abdomen: abdomen soft, non-tender, normal bowel sounds, and no masses or organomegaly Extremities: less than 2 second capillary refill, no joint deformities, effusion, or inflammation ASSESSMENT AND PLAN COPD exacerbation (HCC) (Primary) - DISCH MED RECON CUR MED LIS Complete prednisone taper and inhaler more often Strongly discussed importance of quitting smoking Pneumonia due to infectious organism, unspecified laterality, unspecified part of lung - DISCH MED RECON CUR MED LIS - XR CHEST 2 VIEWS; Future; Expected date: 09/19/2023 - BASIC METABOLIC PANEL; Future; Expected date: 08/25/2023 Complete Levaquin as given Tobacco use disorder - Nicotine 14 MG/24HR Transdermal Patch 24 Hour (Nicoderm CQ); One 14 mg patch daily for 2 wks; then one 7 mg patch daily for 2 wks. Remove old patch daily Do not start before September 19, 2023. - Nicotine 7 MG/24HR Transdermal Patch 24 Hour (Nicoderm CQ); One 7 mg patch daily for 2 weeks; Remove old patch daily; and then stop. - Nicotine Polacrilex 2 MG Mouth/Throat Gum (GNP Nicotine); Take 2 Each by mouth 4 times a day as needed for Other (smoking urge). 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 Treatment and plan was discussed with patient and was given opportunity to ask questions which wereanswered appropriately. Patient verbalizing understanding. This note was prepared with the help of fluency and if there is any mis-spelled words , sentences or something which doesn't represent the content of the subject that could be technical error and please refer to the author for clarification. Justina Humphrey MD 10:07 AM 08/08/2023 documented in this encounter Nursing Notes * Jeanette Richardson LPN - 08/08/2023 9:31 AM EDT Chief Complaint Patient presents with Hospital Follow-Up [facility] d/c 08/02/23--would like to start using nicotine gum to help him quit smoking. documented in this encounter Plan of Treatment Upcoming Encounters Date Type Department Care Team (Late st Contact Info) Description 09/30/2023 3:30 PM EDT Office Visit Urology, [facility] [address] [facility] [place] [address] Trae Montejo MD [address] [address] [place] [address] 11/19/2023 10:30 AM EDT Nurse Only Ancillary [address] [place] [address] Im, Nurse Annual Wellness [place] [address] [place] [address] [id number] 02/06/2024 10:00 AM EDT Office Visit Dermatology [facility] [address] [place] [address] Chavez Fam MD 200 [facility] [place] [address] 02/21/2024 10:00 AM EDT Office Visit General Internal Medicine [facility] [place] [address] Chavez Francois MD [address] [place] [address] 03/04/2024 10:00 AM EST Office Visit Pulmonary Medicine, [facility] 132 [facility] [place] [address] Miguelangel Angela MD [address] [facility] [address] 03/09/2024 9:00 AM EST Imaging Radiology [facility]st [facility] [address] [facility] [place] [address] Scheduled Orders Name Type Priority Associated Diagnoses Orde r Schedule XR CHEST 2 VIEWS Medical Imaging Routine Pneumonia due to infectious organism, unspecified laterality, unspecified part of lung Expected: 09/19/2023, Expires: 09/06/2024 Health Maintenance Due Date Last Done Comments [...] Not on filedocumented as of this encounter Results * BASIC METABOLIC PANEL (08/22/2023 12:29 PM EDT) BUN 19 6 - 20 mg/dL 08/22/2023 2:03 PM EDT [facility] Creatinine 1.0 0.6 - 1.2 mg/dL 08/22/2023 2:03 PM EDT [facility] Estimated Glomerular Filtration Rate 79 >=60 mL/min 08/22/2023 2:03 PM EDT [facility] Comment:eGFR is calculated b ased on the CKD-EPI 2020 equation Sodium 143 135 - 146 mmol/L 08/22/2023 2:03 PM EDT [facility] Potassium 4.3 3.5 - 5.1 mmol/L 08/22/2023 2:03 PM EDT [facility] Chloride 106 98 - 107 mmol/L 08/22/2023 2:03 PM EDT [facility] CO2 29 22 - 32 mmol/L 08/22/2023 2:03 PM EDT [facility] Anion Gap 8 7 - 15 mmol/L 08/22/2023 2:03 PM EDT [facility] Glucose 100 70 - 120 mg/dL 08/22/2023 2:03 PM EDT [facility] Calcium 9.1 8.4 - 10.2 mg/dL 08/22/2023 2:03 PM EDT [facility] Blood Venous blood specimen / Unknown Venipuncture / Unknown 08/22/2023 12:29 PM EDT 08/22/2023 12:29 PM EDT Justina Humphrey MD LAB BLOOD ORDERABLES [facility] 132 [facility] [place] [address] documented in this encounter Visit Diagnoses Diagnosis COPD exacerbation (HCC)- Primary Obstructive chronic bronchitis with exacerbation Pneumonia due to infectious organism, unspecified laterality, unspecified part of lung Tobacco use disorder Hospital discharge follow-up Other follow-up examination 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) Chronic airway obstruction, not elsewhere classified HTN, goal below 140/90 Unspecified essential hypertension COPD, group D, by GOLD 2017 classification (HCC) 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
--- OUTSIDE RECORDS SUMMARY | 2023-09-28 14:23 | External Medical Summary | Summary of Care ---
Author Name Unknown Organization [facility] Address [address] [place] [address] Phone [phone] Care Team Providers Care Music Grapher Name Role Phone Chavez Francois MD Primary Care Provider + Reason for Visit * Reason Comments Outpatient Testing Encounter Details Date Type Department Care Team (Late st Contact Info) Description 08/22/2023 12:40 PM EDT Laboratory Laboratory, [facility] 132 [facility] [place] [phone] [facility] [address] [facility] [place] [address] Decreased hemoglobin; Pneumonia due to infectious organism, unspecified laterality, unspecified part of lung Allergies Active Allergy Reactions Criticality Noted Date [...] group D, by GOLD 2017 classification (HCC) INHALE 3 ML (ONE VIAL) VIA NEBULIZER [...] COPD, group B, by GOLD 2017 classification ([facility]) INHALE 2 PUFFS BY MOUTH EVERY 4 HOURS NEEDED FOR COUGH, SHORTNESS OF BREATH OR WHEEZING. 18 g 11 05/22/2023 05/21/2024 Active Trelegy Ellipta 100-62.5-25 MCG/ACT Aerosol Powder Breath Activated (Fluticasone-Umeclid inium-Vilanterol)Ind ications:COPD, group D, by GOLD 2017 classification ([facility]) Inhale 1 Puff by mouth in the morning. Rinse mouth and gargle with water after use.. 60 Each 11 06/24/2023 Active Fluticasone Propionate 50 MCG/ACT Nasal Suspension (Flonase)Indications :COPD, moderate ([facility]),Chronic rhinitis Administer 2 Sprays into [...] 09/30/2023 3:30 PM EDT Office Visit Urology, [facility] [address] [facility] [place] [address] Trae Montejo MD [address] [facility] [address] [facility] [place] [address] 11/19/2023 10:30 AM EDT Nurse Only Ancillary [facility] [address] [place] [address] Im, Nurse Annual Wellness [facility] [address] [place] [address] 02/06/2024 10:00 AM EDT Office Visit Dermatology [facility] [address] [place] [address] Chavez Fam MD 200 [facility] [place] [address] 02/21/2024 10:00 AM EDT Office Visit General Internal Medicine [facility] [address] [place] [address] Chavez Francois MD 200 [facility] [place] [address] 03/04/2024 10:00 AM EST Office Visit Pulmonary Medicine, [facility] 132 [facility] [place] [address] Miguelangel Angela MD [address] [facility] [place] [address] 03/09/2024 9:00 AM EST Imaging Radiology [facility]st [facility] [address] [facility] [place] [address] Pending Results Name Type Priority Associated Diagnoses Date /Time CBC WITH WBC DIFFERENTIAL Lab Routine Decreased hemoglobin 08/22/2023 12:29 PM EDT BASIC METABOLIC PANEL Lab Routine Pneumonia due to infectious organism, unspecified laterality, unspecified part of lung 08/22/2023 12:29 PM EDT CBC Lab Routine Decreased hemoglobin 08/22/2023 12:29 PM EDT DIFFERENTIAL, AUTOMATED Lab Routine Decreased hemoglobin 08/22/2023 12:29 PM EDT Health Maintenance Due Date Last Done [...] 07/23/2024 07/24/2023, 12/28, 11/30/2022, Additional history exists O2 ASSESSMENT COMPLETED IN PAST YEAR FOR COPD 08/13/2024 08/14/2023 Albumin/Creatinine Ratio 01/10/2026 023, 12/15/2021, 02/08/2014 COLONOSCOPY-EVERY [...] as of this encounter Visit Diagnoses Diagnosis Decreased hemoglobin Anemia, unspecified Pneumonia due to infectious organism, unspecified laterality, unspecified part of lung documented in this encounter Care Teams Music Grapher Relationship Specialty Start Date End Date Chavez Francois MD [address] [place] [address] PCP - General Internal Medicine 08/12/12 documented as of this encounter
--- OUTSIDE RECORDS SUMMARY | 2023-09-28 14:23 | External Medical Summary | Summary of Care ---
Author Name Unknown Organization [facility] Address [address] [address] Phone [phone] Care Team Providers Care Slip Cover Cutter Name Role Phone Chavez Francois MD Primary Care Provider + Reason for Visit * Reason Onset Date Comments Test Results 08/28/2023 Encounter Details Date Type Department Care Team (Late st Contact Info) Description 08/28/2023 Telephone General Internal Medicine [facility] [address] [place] [address] Chavez Francois MD [facility] [address] Test Results Allergies Active Allergy Reactions Criticality [...] Miscellaneous Notes * Telephone Encounter - Chavez Francois MD - 08/29/2023 3:58 PM EDT Will await f/u labs for this, will see If iron low and need to supplement with next labs * Telephone Encounter - Yasmin Choi OSA [...] 09/30/2023 3:30 PM EDT Office Visit Urology, [facility] [address] [facility] [place] [address] Trae Montejo MD 27 [facility] [address] [place] [id number] 11/19/2023 10:30 AM EDT Nurse Only Ancillary [facility] [address] [facility] [place] [address] Im, Nurse Annual Wellness [facility] [address] [facility] [place] [address] 02/06/2024 10:00 AM EDT Office Visit Dermatology [facility] [address] [facility] [place] [address] Chavez Fam MD 200 [facility] [place] [address] 02/21/2024 10:00 AM EDT Office Visit General Internal Medicine [facility] [address] [facility] [place] [address] Chavez Francois MD 200 [facility] [place] [address] 03/04/2024 10:00 AM EST Office Visit Pulmonary Medicine, [facility] [address] [facility] [place] [address] Miguelangel Angela MD [address] [place] [address] 03/09/2024 9:00 AM EST Imaging Radiology [facility] [address]st [facility] [place] [address] [place] [address] Health Maintenance Due Date Last Done Comments [...] FOR COPD 08/13/2024 08/14/2023 GFR 08/21/2024 08/22/2023, 0310/2023, 01/10/2023, Additional history exists Albumin/Creatinine Ratio 01/10/2026 [...] filedocumented as of this encounter Care Teams Slip Cover Cutter Relationship Specialty Start Date End Date Chavez Francois MD [address] [place] [address] PCP - General Internal Medicine 08/12/12 documented as of this encounter
--- OUTSIDE RECORDS SUMMARY | 2023-09-28 14:23 | External Medical Summary | Summary of Care ---
Author Name Unknown Organization [facility] Address [address] [place] [address] Phone [phone] Care Team Providers Care Credit Collection Associate Name Role Phone Chavez Francois MD Primary Care Provider + Encounter Details Date Type Department Care Team (Late st Contact Info) Description 08/13/2023 Orders Only PATIENT PORTAL DO NOT DELETE THIS DEPT USED BY [place] [id number] Allergies Active Allergy Reactions Criticality Noted Date Comments Bee Venom 10/21/2014 Cefuroxime Axetil Rash Medium 08/12/2012 Food (See Comments) Diarrhea 08/01/2022 ALL nuts Nutritional Supplements Edema airway High 10/20/2012 documented as of this encounter (statuses as of 08/13/2023) Medications Medication Sig Dispensed Refills Start Date End Date Status Nebulizer System All-In-One Use as directed. 0 Active hydroCHLOROthiazide 25 MG Oral Tablet (Hydrodiuril)Indicat ions:HTN, goal below 140/90 TAKE 1 TABLET BY MOUTH DAILY. 90 Tablet 3 03/27/2021 Active Ipratropium-Albutero l 0.5-2.5 (3) MG/3ML Inhalation Solution (Duoneb)Indications: COPD, group D, by GOLD 2017 classification ([facility]) INHALE 3 ML (ONE VIAL) [...] with CKD (chronic kidney disease) stage III ([facility]) TAKE 1 TABLET BY MOUTH IN THE MORNING 100 Tablet 2 01/25/2023 Active Albuterol Sulfate HFA 108 (90 Base) MCG/ACT Inhalation Aerosol SolutionIndications: COPD, group B, by GOLD 2017 classification ([facility]) INHALE 2 PUFFS BY MOUTH EVERY 4 HOURS NEEDED FOR COUGH, SHORTNESS OF BREATH OR WHEEZING. 18 g 11 05/22/2023 05/21/2024 Active Trelegy Ellipta 100-62.5-25 MCG/ACT Aerosol Powder Breath Activated (Fluticasone-Umeclid inium-Vilanterol)Ind ications:COPD, group D, by GOLD 2017 classification ([facility]) Inhale 1 Puff by mouth in the morning. Rinse mouth and gargle with water after use.. 60 Each 11 06/24/2023 Active Fluticasone Propionate 50 MCG/ACT Nasal Suspension (Flonase)Indications :COPD, moderate ([facility]),Chronic rhinitis Administer 2 Sprays into [...] as of this encounter (statuses as of 08/13/2023) Active Problems Problem Noted Date Diagnosed Date [...] as of this encounter (statuses as of 08/13/2023) Resolved Problems Problem Noted Date Diagnosed Date [...] as of this encounter (statuses as of 08/13/2023) Immunizations Name Administration Dates Next Due COVID-19 [...] Care Team (Late st Contact Info) Description 08/14/2023 8:20 AM EDT Office Visit Pulmonary Medicine, [facility] [address] [facility] [place] [address] Miguelangel Angela MD [address] [place] [facility] [place] [address] 09/30/2023 3:30 PM EDT Office Visit Urology, [facility] [address] [facility] [place] [address] Trae Montejo MD 27 [facility] [address] [place] [address] 11/19/2023 10:30 AM EDT Nurse Only Ancillary [facility] [place] [address] [place] [address] Im, Nurse Annual Wellness [facility] [address] [place] [address] 02/06/2024 10:00 AM EDT Office Visit Dermatology [facility] [place] [address] [place] [address] Chavez Fam MD [address] [place] [address] 02/21/2024 10:00 AM EDT Office Visit General Internal Medicine [facility] [address] [facility] [place] [address] Chavez Francois MD 200 [facility] [place] [address] 03/09/2024 9:00 AM EST Imaging Radiology [place] [address]st [facility] [place] [address] [facility] [place] [address] Health Maintenance Due Date Last Done Comments [...] ASSESSMENT COMPLETED IN PAST YEAR FOR COPD 08/07/2024 08/08/2023 Albumin/Creatinine Ratio 01/10/2026 023, 12/15/2021, 02/08/2014 COLONOSCOPY-EVERY [...] filedocumented as of this encounter Care Teams Credit Collection Associate Relationship Specialty Start Date End Date Chavez Francois MD 200 [place] [address] PCP - General Internal Medicine 08/12/12 documented as of this encounter
--- OUTSIDE RECORDS SUMMARY | 2023-09-28 14:23 | External Medical Summary | Summary of Care ---
Author Name Unknown Organization [facility] Address [address] [place] [address] Phone [phone] Care Team Providers Care Forensic Manager Name Role Phone Chavez Francois MD Primary Care Provider + Reason for Visit * Reason Comments Follow Up Here 2 wk hospital d ischarge. 08/07-08/08. 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 0 Active hydroCHLOROthiazide 25 MG Oral Tablet (Hydrodiuril)Indicat ions:HTN, goal below 140/90 TAKE 1 TABLET BY MOUTH DAILY. 90 Tablet 3 03/27/2021 Active Ipratropium-Albutero l 0.5-2.5 (3) MG/3ML Inhalation Solution (Duoneb)Indications: COPD, group D, by GOLD 2017 classification ([facility]) INHALE 3 ML (ONE VIAL) [...] with CKD (chronic kidney disease) stage III ([facility]) TAKE 1 TABLET BY MOUTH IN THE MORNING 100 Tablet 2 01/25/2023 Active Albuterol Sulfate HFA 108 (90 Base) MCG/ACT Inhalation Aerosol SolutionIndications: COPD, group B, by GOLD 2017 classification ([facility]) INHALE 2 PUFFS BY MOUTH EVERY 4 HOURS NEEDED FOR COUGH, SHORTNESS OF BREATH OR WHEEZING. 18 g 11 05/22/2023 05/21/2024 Active Trelegy Ellipta 100-62.5-25 MCG/ACT Aerosol Powder Breath Activated (Fluticasone-Umeclid inium-Vilanterol)Ind ications:COPD, group D, by GOLD 2017 classification ([facility]) Inhale 1 Puff by mouth in the morning. Rinse mouth and gargle with water after use.. 60 Each 11 06/24/2023 Active Fluticasone Propionate 50 MCG/ACT Nasal Suspension (Flonase)Indications :COPD, moderate ([facility]),Chronic rhinitis Administer 2 Sprays into [...] as of this encounter (statuses as of 08/14/2023) Active Problems Problem Noted Date Diagnosed Date [...] as of this encounter (statuses as of 08/14/2023) Resolved Problems Problem Noted Date Diagnosed Date [...] as of this encounter (statuses as of 08/14/2023) Immunizations Name Administration Dates Next Due COVID-19 [...] Cigarettes 1.3 50 Cigars Smokeless Tobacco: Never Tobacco Cessation:Counseling Given: Not Answered Comments:06/24/2023: began smoking age [...] Sign Reading Time Taken Comments Blood Pressure 132/60 08/14/2023 8:11 AM EDT Pulse 84 08/14/2023 8:11 AM EDT Temperature 35.4 C (95.7 F) 08/14/2023 8:11 AM ED T Respiratory Rate - - Oxygen Saturation 95% 08/14/2023 8:12 AM EDT ra-amb Inhaled Oxygen Concentration - - Weight 46.7 kg (103 lb) 08/14/2023 8:11 AM EDT Height 168.9 cm (5' 6.5") 08/14/2023 8:11 AM EDT Body Mass Index 16.38 08/14/2023 8:11 AM EDT documented in this encounter Patient Instructions * Patient Instructions* Miguelangel Angela MD - 08/14/2023 8:36 AM EDT Sukumar Andrews [id number] Benefits of Quitting Smoking Why should I [...] and making a loved one happy . [place] Department of Health Quit Line [facility] Free Quitline [phone] QUIT NOW ( ) Your insurance company may also have more information and helpful programs to help you quit. Some may even help cover some of the costs. For example, [facility] members can call to find out about their smoking cessation program and medication coverage. Developed by Delma Ryder MD, for [employer]. Published by [employer]. Last modified: 2005-09-07 Last reviewed: 2005-06-27 This content is reviewed periodically and is subject to change as new health information becomes available. The information is intended to inform and educate and is not a replacement for medical evaluation, advice, diagnosis or treatment by a healthcare professional. Adult Health Advisor 2006.4 Index Adult Health Advisor 2006.4 Credits Copyright 2006 [employer] and/or one of its subsidiaries. All Rights Reserved. 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 Patient describes improved respiratory status since hospital discharge. Completed prednisone taper and antibiotic therapy. Improved appetite status, but continues to lose weight, current BMI 16. Current bronchodilator regimen includes Trelegy inhaler use regularly along with rescue albuterol and albuterol nebulizer therapy used as needed. Maintaining physical activity status at home. Denies nocturnal awakening due to respiratory symptoms. Denies difficulty with expectoration. No recent hemoptysis episodes reported. Physical examination is significant for cachectic pleasant male, no apparent distress, class 1 throat, compromised air entry, prolonged expiratory wheezing with scattered coarse rales, no dullness, no evidence of volume overload, regular cardiac rhythm and nonlateralizing Neuro examination. Smoking cessation counseling was provided. Importance of maintaining smoking cessation status was stressed. Current bronchodilator regimen will be continued. Role of additional roflumilast therapy was discussed. Decision was made to withhold roflumilast at this point unless frequent hospitalizations due to respiratory episodes are noted in future. Patient was advised to contact the office with any change in respiratory symptoms status. Pulmonary clinic follow-up recommended in 6 months. DATA review: CT Chest Without Contrast; Diagnostic Exam date and time: 03/05/2023 9:41 AM Age: 77 years old FINDINGS: Lungs: There is emphysematous change most pronounced at the apices. There are clustered granulomata in the left lung. There is an 8 mm right upper lobe nodule posteriorly image 95 which may be due to a granuloma. There is bronchial wall thickening. There is mucous within the tracheobronchial tree. There has been an interval improvement in the nodular opacity within the right lower lobe posteriorly. It likely represented an area of pneumonia. Within the left lower lobe posteromedially there has been interval improvement of the subpleural nodule series 10, image 215 The right middle lobe nodule has also improved image 297. There is a new small nodule adjacent to it measuring 3 mm. There is subsegmental atelectasis at the lung base IMPRESSION: 1. Emphysema 2. Interval improvement in the probable prior nodular pneumonia 2017: NE RAST normal, IgE 11.8 2021: COVID 19 + Pulmonary Stress Test: Performed on 04/2021: Exercise oximetry performed on room air x 6 minutes. Pt ambulated 1080 feet/ 329 meters. No rest periods were required. Lowest SPO2 on room air was 92%. Performed 03/2022: Franko 92% RA, patient walked 301 metes. No rest periods. Pulmonary Function Test Results: Performed on 04/2021: HISTORY: Patient is 75-year-old male, with about 55 pack year smoking history. BMI is 20.6.SPIROGRAM: Shows pre bronchodilator FEV1 to be decreased at 39% of predicted ( 1.08 L), FVC is decreased at 64% of predicted ( 2.32 L). FEV1/FVC ratio is decreased. Post bronchodilator FEV1 is decreased. There is significant bronchodilator responseSMALL AIRWAYS: The flow of air at 25 - 75% of vital capacity is decreasedLUNG VOLUMES: Lung volumes when measured by body plethysmography shows the TLC is within normal limits, the FRC, RV and RV/TLC ratio are increased.DIFFUSION CAPACITY: Diffusion capacity is decreased. However, the diffusing capacity was not corrected for the patient's hemoglobin. RESISTANCE: Airway resistance is increased while specific conductance is decreased .CONCLUSION: PFT shows evidence of severe obstructive ventilatory impairment. There is significant bronchodilator response. Lung volumes are suggestive of air trapping. 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 08/07-08/08. HPI: Nursing Notes: Beckie Preciado LPN 08/14/23 0817 Signed Chief Complaint Patient presents with Follow Up Here 2 wk hospital discharge. 08/07-08/08. Interm History/Respiratory Symptoms Cough: yes-clear phelgm Hemoptysis: no Sinus Symptoms: runny nose in am Hospitalizations: 08/07-08/08 ED Trips: 08/07-08/08 Triggers: no Nocturnal: sleeps with head elevated. CPAP/BiPAP/O2: no Flu Vaccine: none. Pneumovax: 2013 Prevnar: 2016 COVID 19: x5. Mmrc Cat Question 08/14/2023 8:15 AM EDT - Filed by Beckie Preciado LPN When do you become breathless? (3) I stop for breath after walking about 100 yards or after a few minutes on level ground How frequently do you cough? (1) Do you have phlegm in your chest? (0) - I have no phlegm (mucus) in my chest Is your chest tight? (0) - My chest does not feel tight at all How breathless do you become when walking up a hill or steps? (2) How limited are you doing activities at home? (0) - I am not limited doing any activities at home How confident are you leaving home with your lung condition? (0) - I am confident leaving my home despite my condition How soundly do you sleep? (0) - I sleep soundly How much energy do you have? (3) Total MMRC Score (range: 0 - 4) 3 Total CAT Score (range: 0 - 40) 6 Objective Filed Vitals: 08/14/23 0811 08/14/23811 BP: 132/60 Pulse: 84 Temp: 35.4 C (95.7 F) SpO2: 95% 95% Weight: 46.7 kg (103 lb) Height: 1.689 m (5' 6.5") Exam: Const: No signs of acute distress present. Head/Face: Normal on inspection. Eyes: Conjunctivae clear. Pupils equal round and reactive to light. ENMT: Oropharynx: No erythema, exudate or masses. Posterior pharynx is normal. Neck: Supple and symmetric. Resp: Respiratory examination as outlined above CV: Rate is regular. Rhythm is regular. No heart murmur appreciated. Extremities: No edema of the lower limbs bilaterally. Skin: Skin is warm and dry. Neuro: Coordination normal. No involuntary movement. Psych: Patient's attitude is cooperative. Mood is normal. Affect is normal. Tests reviewed with the patient: CT CHEST WO CONTRAST Result Date: 03/07/2023 IMPRESSION: 1. Emphysema 2. Interval improvement in the probable prior nodular pneumonia COMMENTS: In the absence of a history or active diagnosis of lung cancer, it is recommended that this patient with emphysema be evaluated for enrollment in a low dose CT lung cancer screening program. THIS DOCUMENT HAS BEEN ELECTRONICALLY SIGNED BY VAN ESCOBAR MD Available Radiologic data was reviewed by me in PACS. The images were shown to the patient and findings were discussed with the patient. HOME MEDICATIONS: [START ON 09/19/2023] Nicotine 14 MG/24HR Transdermal Patch 24 Hour (Nicoderm CQ) Nicotine 7 MG/24HR Transdermal Patch 24 Hour (Nicoderm CQ) Nicotine Polacrilex 2 MG Mouth/Throat Gum (GNP Nicotine) Benzonatate 100 MG Oral Capsule (Tessalon Perles) guaiFENesin ER 600 MG Oral Tablet Extended Release 12 Hour (Humibid LA) levoFLOXacin 750 MG Oral Tablet (Levaquin) predniSONE 20 MG Oral Tablet (Deltasone) Atorvastatin Calcium 40 MG Oral Tablet (Lipitor) Fluticasone Propionate 50 MCG/ACT Nasal Suspension (Flonase) Trelegy Ellipta 100-62.5-25 MCG/ACT Aerosol Powder Breath Activated (Dqiibfxhtaq-Gzumebckkuxz-Rubykrssog) Albuterol Sulfate HFA 108 (90 Base) MCG/ACT Inhalation Aerosol Solution Losartan Potassium 50 MG Oral Tablet (Cozaar) EPINEPHrine 0.3 MG/0.3ML Injection Solution Auto-injector (Autoinjector) Ipratropium-Albuterol 0.5-2.5 (3) MG/3ML Inhalation Solution (Duoneb) hydroCHLOROthiazide 25 MG Oral Tablet (Hydrodiuril) Nebulizer System All-In-One ROS: No reported history of Hemoptysis, Hematemesis, Melena No reported history of Dysuria, Hematuria, Flank Pain No reported history of chronic headache, seizures No reported history of Fall or trauma . No reported history of recent change in weight or appetite. Past Medical History: Diagnosis Date Benign hypertension with CKD (chronic kidney disease) stage III (HCC) 03/16/2020 Blind left eye Bronchiectasis without complication (HCC) 07/29/2019 Chronic rhinitis 10/23/2016 COPD (chronic obstructive pulmonary disease) ([facility]) COPD, moderate (HCC) 02/12/2013 Diverticulosis Elevated prostate specific antigen (PSA) 09/13/2020 Former tobacco use 03/16/2020 HTN, goal below 140/90 09/18/2012 ILD (interstitial lung disease) ([facility]) Lung nodule Mixed hyperlipidemia 10/03/2017 Respiratory bronchiolitis interstitial lung disease ([facility]) 07/29/2019 Tobacco abuse 08/12/2012 Past Surgical History: Procedure Laterality Date COLONOSCOPY, DIAGNOSTIC (RECTUM) 11/05/2014 polyp removed not retrieved, diverticulosis, repeat 5 yrs/COLONOSCOPY FLEXIBLE PROXIMAL DIAGNOSTIC performed by Billy Campbell MD at [facility]COPY [facility] COLONOSCOPY, DIAGNOSTIC (RECTUM) 11/04/2019 Stricture in the sigmoid colon / COLONOSCOPY FLEXIBLE PROXIMAL DIAGNOSTIC performed by Billy Campbell MD at [facility]COPY [facility] COLONOSCOPY, DIAGNOSTIC (RECTUM) 08/08/2022 diverticulosis / COLONOSCOPY FLEXIBLE PROXIMAL DIAGNOSTIC performed by Al Ramsay MD at [facility]COPY [facility] EGD, FLEXIBLE, DIAGNOSTIC 08/08/2022 Schatzki ring, hiatal hernia, normal bx / ESOPHAGOGASTRODUODENOSCOPY (EGD), FLEXIBLE, TRANSORAL, DIAGNOSTIC performed by Al Ramsay MD at [facility]COPY [facility] INCISION OF COLON 04/29/2004 bilateral inguinal INJECT DX/THER SUBSTANCE INTERLAMINAR CERVICAL/THORACIC W IMAGE GUIDE 08/21/2018 INJECTION SPINE LUMBAR CERVICAL OR THORACIC performed by Jeferson Rodríguez DO at OR [facility] INJECT DX/THER SUBSTANCE INTERLAMINAR CERVICAL/THORACIC W IMAGE GUIDE 09/04/2018 INJECTION SPINE LUMBAR CERVICAL OR THORACIC performed by Jeferson Rodríguez DO at OR [facility] PROCEDURE - GENERAL Left 01/08/2022 left inguinal hernia repair by Dr William Lambert REMOVE GALLBLADDER 10/11/[address] Arora [facility] 10/11/12 SURGICAL PROCEDURE ONLY Right 04/16/2022 open repair right inguinal hernia with mesh Social History Socioeconomic History Marital status: Single Number of children: 0 Occupational History Occupation: unemployed, disability 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 Tobacco Use Smoking status: Former Current packs/day: 0.50 Average packs/day: 0.5 packs/day for 10.0 years (5.0 ttl pk-yrs) Types: Cigarettes, Cigars Smokeless tobacco: [...] Sister Heart Disorder Brother Other (stent) Brother Review of patient's allergies indicates: Allergen Reactions Nutritional Supplements Edema airway Cefuroxime Axetil Rash Bee Venom Food (See Comments) Diarrhea ALL nuts The following information was reviewed/discussed with the [...] documented in this encounter Nursing Notes * Beckie Preciado LPN - 08/14/2023 8:15 AM EDT Chief Complaint Patient presents with Follow Up Here 2 wk hospital discharge. 08/07-08/08. Interm History/Respiratory Symptoms Cough: yes-clear phelgm Hemoptysis: no Sinus Symptoms: runny nose in am Hospitalizations: 08/07-08/08 ED Trips: 08/07-08/08 Triggers: no Nocturnal: sleeps with head elevated. CPAP/BiPAP/O2: no Flu Vaccine: none. Pneumovax: 2013 Prevnar: 2016 COVID 19: x5. Mmrc Cat Question 08/14/2023 8:15 AM EDT - Filed by Beckie Preciado LPN When do you become breathless? (3) I stop for breath after walking about 100 yards or after a few minutes on level ground How frequently do you cough? (1) Do you have phlegm in your chest? (0) - I have no phlegm (mucus) in my chest Is your chest tight? (0) - My chest does not feel tight at all How breathless do you become when walking up a hill or steps? (2) How limited are you doing activities at home? (0) - I am not limited doing any activities at home How confident are you leaving home with your lung condition? (0) - I am confident leaving my home despite my condition How soundly do you sleep? (0) - I sleep soundly How much energy do you have? (3) Total MMRC Score (range: 0 - 4) 3 Total CAT Score (range: 0 - 40) 6 documented in this encounter Plan of Treatment Upcoming Encounters Date Type Department Care Team (Late st Contact Info) Description 09/30/2023 3:30 PM EDT Office Visit Urology, [facility] [address] [facility] [place] [address] Trae Montejo MD [address] [place] [address] 11/19/2023 10:30 AM EDT Nurse Only Ancillary [facility] [address] [facility] [place] [address] Im, Nurse Annual Wellness [facility] [address] [place] [address] 02/06/2024 10:00 AM EDT Office Visit Dermatology [facility] [address] [facility] [place] [address] Chavez Fam MD [address] [facility] [place], [place] [address] 02/21/2024 10:00 AM EDT Office Visit General Internal Medicine [facility] [address] [facility] [place] [address] Chavez Francois MD [address] [facility] [place], [place] [address] 03/04/2024 10:00 AM EST Office Visit Pulmonary Medicine, [facility] [address] [facility] [address] Miguelangel Angela MD [address] [place] [facility] [place] [address] 03/09/2024 9:00 AM EST Imaging Radiology [facility] [address] [facility] [address] [place] [address] Health Maintenance Due Date Last Done Comments Zoster Vaccines (1 of 2) 08/08/1997 DTaP,Tdap,and Td Vaccines (2 - Td or Tdap) 08/12/2017 08/13/2007 COVID-19 Vaccine ( season) 2022 11/13/2021, 04/12/2021, 08/24/2020, Additional history exists Depression Screening 11/13/2023 11/12/2022, 08/10/19 15 Influenza Vaccine (FLU shot) (Season Ended) 2023 GFR 07/23/2024 07/24/2023, 12/28, 11/30/2022, Additional history exists O2 ASSESSMENT COMPLETED IN PAST YEAR FOR COPD 08/13/2024 08/14/2023 Albumin/Creatinine Ratio 01/10/202601/10/ 023, 12/15/2021, 02/08/2014 COLONOSCOPY-EVERY 5 YRS AGES [...] as of this encounter Visit Diagnoses Diagnosis Mixed hyperlipidemia- Primary COPD, group D, by GOLD 2017 classification (HCC) Respiratory bronchiolitis interstitial lung disease (HCC) Respiratory bronchiolitis interstitial lung disease Bronchiectasis without complication (HCC) Bronchiectasis without acute exacerbation 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
--- OUTSIDE RECORDS SUMMARY | 2023-09-28 14:23 | External Medical Summary | Summary of Care ---
Author Name Unknown Organization [facility] Address [address] [facility] [address] Phone [phone] Care Team Providers Care Interpreter Translator Name Role Phone Chavez Francois MD Primary Care Provider + Reason for Visit * Reason Onset Date Comments FYI 08/05/2023 Encounter Details Date Type Department Care Team (Late st Contact Info) Description 08/05/2023 Telephone General Internal Medicine [facility] [address] Chavez Francois MD 200 [facility] [address] FYI Allergies Active Allergy Reactions Criticality Noted Date Comments Bee Venom 10/21/2014 Cefuroxime Axetil Rash Medium 08/12/2012 Food (See Comments) Diarrhea 08/01/2022 ALL nuts Nutritional Supplements Edema airway High 10/20/2012 documented as of this encounter (statuses as of 08/05/2023) Medications Medication Sig Dispensed Refills Start Date End Date Status Nebulizer System All-In-One Use as directed. 0 Active hydroCHLOROthiazide 25 MG Oral Tablet (Hydrodiuril)Indicat ions:HTN, goal below 140/90 TAKE 1 TABLET BY MOUTH DAILY. 90 Tablet 3 03/27/2021 Active Ipratropium-Albutero l 0.5-2.5 (3) MG/3ML Inhalation Solution (Duoneb)Indications: COPD, group D, by GOLD 2017 classification ([facility]) INHALE 3 ML (ONE VIAL) VIA [...] with CKD (chronic kidney disease) stage III ([facility]) TAKE 1 TABLET BY MOUTH IN THE MORNING 100 Tablet 2 01/25/2023 Active Albuterol Sulfate HFA 108 (90 Base) MCG/ACT Inhalation Aerosol SolutionIndications: COPD, group B, by GOLD 2017 classification ([facility]) INHALE 2 PUFFS BY MOUTH EVERY 4 HOURS NEEDED FOR COUGH, SHORTNESS OF BREATH OR WHEEZING. 18 g 11 05/22/2023 05/21/2024 Active Trelegy Ellipta 100-62.5-25 MCG/ACT Aerosol Powder Breath Activated (Fluticasone-Umeclid inium-Vilanterol)Ind ications:COPD, group D, by GOLD 2017 classification ([facility]) Inhale 1 Puff by mouth in the morning. Rinse mouth and gargle with water after use.. 60 Each 11 06/24/2023 Active Fluticasone Propionate 50 MCG/ACT Nasal Suspension (Flonase)Indications :COPD, moderate ([facility]),Chronic rhinitis Administer 2 Sprays into each [...] as of this encounter (statuses as of 08/05/2023) Active Problems Problem Noted Date Diagnosed Date [...] as of this encounter (statuses as of 08/05/2023) Resolved Problems Problem Noted Date Diagnosed Date [...] as of this encounter (statuses as of 08/05/2023) Immunizations Name Administration Dates Next Due COVID-19 [...] Encounter - Meg Antonio MED ASSIST - 08/05/2023 3:29 PM EDT Patient aware and verbalized understanding * Telephone Encounter - Chavez Francois MD - 08/05/2023 1:05 PM EDT Can discuss at upcoming visit! * Telephone Encounter - Lorna Cleveland LPN - 08/05/2023 12:51 PM EDT Patient is calling. He would like gum or patches sent to [facility] to help him stop smoking. * Telephone Encounter - Chavez Francois MD - 08/05/2023 8:21 AM EDT Noted, has f/u 08/08/23, pls keep * Telephone Encounter - Belén Bloom LPN - 08/05/2023 8:16 AM EDT Patient states that he was admitted to [facility] last week for pneumonia Record is available in chart He states that he is feeling well Advised an appt but patient declined and said that he just wanted to make PCP aware and that he is on the mend now documented in this encounter Plan of Treatment Upcoming Encounters Date Type Department Care Team (Late st Contact Info) Description 08/08/2023 9:40 AM EDT Office Visit General Internal Medicine [facility] [place] [address] [place] [address] Justina Humphrey MD [address] [place], [place] [address] 08/14/2023 8:20 AM EDT Office Visit Pulmonary Medicine, [facility] [address] [place] [address] Miguelangel Angela MD [address] [place] [address] 09/30/2023 3:30 PM EDT Office Visit Urology, [facility] [address] [place] [address] Trae Montejo MD 27 [facility] [address] [place] [id number] 11/19/2023 10:30 AM EDT Nurse Only Ancillary [facility] [address] [place], [place] [address] Im, Nurse Annual Wellness [facility] [address] [place], [place] [address] 02/06/2024 10:00 AM EDT Office Visit Dermatology [facility] [address] [place], [place] [address] Chavez Fam MD [address] [place], [place] [address] 02/21/2024 10:00 AM EDT Office Visit General Internal Medicine [facility] [address] [place], [place] [address] Chavez Francois MD [address] [place], [place] [address] 03/09/2024 9:00 AM EST Imaging Radiology [facility]st [facility] [address] [place] [address] Health Maintenance Due Date Last Done Comments [...] filedocumented as of this encounter Care Teams Interpreter Translator Relationship Specialty Start Date End Date Chavez Francois MD [address] [place], [place] [address] PCP - General Internal Medicine 08/12/12 documented as of this encounter
--- OUTSIDE RECORDS SUMMARY | 2023-09-28 14:23 | External Medical Summary | Summary of Care ---
Author Name Unknown Organization [facility] Address [address] [facility] [facility] [place] [address] Phone [phone] Care Team Providers Care Side Laster Tack Name Role Phone Chavez Francois MD Primary Care Provider + Reason for Visit * Reason Onset Date Comments Test Results 08/28/2023 Encounter Details Date Type Department Care Team (Late st Contact Info) Description 08/28/2023 Telephone General Internal Medicine [facility] 200 [facility] [phone] Chavez Francois MD 200 [facility] [address] Test Results Allergies Active Allergy Reactions Criticality Noted Date Comments Bee Venom 10/21/2014 Cefuroxime Axetil Rash Medium 08/12/2012 Food (See Comments) Diarrhea 08/01/2022 ALL nuts Nutritional Supplements Edema airway High 10/20/2012 documented as of this encounter (statuses as of 08/28/2023) Medications Medication Sig Dispensed Refills Start Date End Date Status Nebulizer System All-In-One Use as directed. 0 Active hydroCHLOROthiazide 25 MG Oral Tablet (Hydrodiuril)Indicat ions:HTN, goal below 140/90 TAKE 1 TABLET BY MOUTH DAILY. 90 Tablet 3 03/27/2021 Active Ipratropium-Albutero l 0.5-2.5 (3) MG/3ML Inhalation Solution (Duoneb)Indications: COPD, group D, by GOLD 2017 classification ([facility] ications:COPD, group D, by GOLD 2017 classification ([facility]) Inhale 1 Puff by mouth in the morning. Rinse mouth and gargle with water after use.. 60 Each 11 06/24/2023 Active Fluticasone Propionate 50 MCG/ACT Nasal Suspension (Flonase)Indications :COPD, moderate ([facility]),Chronic rhinitis Administer 2 Sprays into each nostril [...] as of this encounter (statuses as of 08/28/2023) Active Problems Problem Noted Date Diagnosed Date [...] as of this encounter (statuses as of 08/28/2023) Resolved Problems Problem Noted Date Diagnosed Date [...] as of this encounter (statuses as of 08/28/2023) Immunizations Name Administration Dates Next Due COVID-19 [...] 09/30/2023 3:30 PM EDT Office Visit Urology, [facility] 132 [facility] [place] [address] Trae Montejo MD 27 [facility] [address] [place] [address] 11/19/2023 10:30 AM EDT Nurse Only Ancillary [facility] 200 [facility] [place], [place] [address] Im, Nurse Annual Wellness [facility] 200 [facility] [place] [address] 02/06/2024 10:00 AM EDT Office Visit Dermatology [facility] 200 [facility] [place] [address] Chavez Fam MD 200 [facility] [place] [address] 02/21/2024 10:00 AM EDT Office Visit General Internal Medicine [facility] [address] [facility] [address] [place], [place] [address] Chavez Francois MD 200 [facility] [place], [place] [address] 03/04/2024 10:00 AM EST Office Visit Pulmonary Medicine, [facility] 132 [facility] [place] [address] Miguelangel Angela MD [address] [facility] [address] 03/09/2024 9:00 AM EST Imaging Radiology [address] 132 [facility] [place] [address] Health Maintenance Due Date Last Done Comments [...] filedocumented as of this encounter Care Teams Side Laster Tack Relationship Specialty Start Date End Date Chavez Francois MD [address] [place] [address] PCP - General Internal Medicine 08/12/12 documented as of this encounter
--- OUTSIDE RECORDS SUMMARY | 2023-09-28 14:23 | External Medical Summary ---
Author Name Unknown Address Unknown Organization [id number] [place] [facility] [place] [address] Laboratory Report Ordering Provider Test Date Status JOSELIN THOMAS 08/22/2023 12:29:27 Final Observation Date Value Abnormality Reference (Units ) Status WBC, Total 08/22/2023 12:29:27 7.22 4.00-10.8 0 (K/uL) Final RBC 08/22/2023 12:29:27 4.46 4.50-5.25 (M/uL) Final Hemoglobin 08/22/2023 12:29:27 12.5 Below low normal 14 .0-16.8 (g/dL) Final HCT 08/22/2023 12:29:27 39.0 Below low normal 40. 0-48.4 (%) Final MCV 08/22/2023 12:29:27 87.4 82.0-99.5 (fL) Final MCH 08/22/2023 12:29:27 28.0 27.0-34.0 (pg) Final MCHC 08/22/2023 12:29:27 32.1 32.0-36.0 (g/dL) Final RDW 08/22/2023 12:29:27 17.1 11.5-15.5 (%) Final Platelets 08/22/2023 12:29:27 214 140-400 (K /uL) Final MPV 08/22/2023 12:29:27 10.1 6.6-11.1 ( fL) Final Performing Location [facility] [place] [place] [address]
--- OUTSIDE RECORDS SUMMARY | 2023-09-28 14:23 | External Medical Summary ---
Author Name Unknown Address Unknown Organization [id number] [place] [address] - [address] [place] [address] Laboratory Report Ordering Provider Test Date Status JOSELIN THOMAS 08/22/2023 12:29:27 Final Observation Date Value Abnormality Reference (Units ) Status SYNC LEUKOCYTES IN BLOOD BY AUTOMATED COUNT 08/22/2023 12:29:27 7.22 4.00-10.80 (K/uL) Final Segs 08/22/2023 12:29:27 71.0 40.0-75.0 (%) Final Lymphs % 08/22/2023 12:29:27 14.7 Below low normal 18.0-42.0 (%) Final Monos 08/22/2023 12:29:27 7.9 1.0-11.0 (%) Final Eosinophils 08/22/2023 12:29:27 5.8 0.0-6.0 (%) Final Basos 08/22/2023 12:29:27 0.6 0.0-2.0 (%) Final Absolute Segs 08/22/2023 12:29:27 5.13 1.80-7.70 (K/uL) Final Lymphs, absolute 08/22/2023 12:29:27 1.06 1.00-4.80 (K/ul) Final Monos, Abs 08/22/2023 12:29:27 0.57 0.00-1.10 (K/uL) Final Eos, Abs 08/22/2023 12:29:27 0.42 0.00-0.70 (K/uL) Final Basos, Abs 08/22/2023 12:29:27 0.04 0.00-0.20 (K/uL) Final Performing Location [facility] [place] [facility] - [address] [place] [address]
--- OUTSIDE RECORDS SUMMARY | 2023-09-28 14:23 | External Medical Summary ---
Author Name Unknown Address Unknown Organization [facility] [place] [facility] - [address] [place] [address] Laboratory Report Ordering Provider Test Date Status VINCE PETIT 08/22/2023 12:29:27 Final Observation Date Value Abnormality Reference (Units ) Status BUN 08/22/2023 12::27 19 6-20 (mg/dL) Final Creatinine 08/22/2023 12::27 1.0 0.6-1.2 (mg/dL) Final Glomerular filtration rate/1.73 sq M.predicted [Volume Rate/Area] in Serum, Plasma or Blood by Creatinine-based formula (CKD-EPI) 08/22/2023 12:29:27 79 >=60 (mL/min) Final eGFR is calculated based on the CKD-EPI 2020 equation Sodium 08/22/2023 12:29:27 143 135-146 (m mol/L) Final Potassium 08/22/2023 12:29:27 4.3 3.5-5.1 (m mol/L) Final Cl 08/22/2023 12:29:27 106 98-107 (mm ol/L) Final CO2 08/22/2023 12:29:27 29 22-32 (mmo l/L) Final Anion gap 08/22/2023 12:29:27 8 7-15 (mmol /L) Final Glucose 08/22/2023 12:29:27 100 70-120 (mg /dL) Final Calcium 08/22/2023 12:29:27 9.1 8.4-10.2 ( mg/dL) Final Performing Location [facility] [place] [facility] - [address] [place] [address]
[2023-09-28] MEDS: REMDESIVIR 100 MG in SODIUM CHLORIDE 0.9% 230 ML IV SCH (19:51)
[2023-09-29 06:18] LABS: Hematocrit (blood only) 34.3 % (42.0-52.0); Hemoglobin 11.5 g/dl (14.0-18.0); Mean Corpuscular Hgb Conc 33.5 g/dL (32.0-36.0); Mean Corpuscular Volume 83.5 fL (80.0-100.0); Mean Platelet Volume 10.4 fL (9.4-12.4); Platelet Count 290 K/uL (130-400); RDW Coefficient of Variation 15.9 % (11.5-14.5); RDW Standard Deviation 48.9 fL (36.4-46.3); Red Blood Count 4.11 M/uL (4.70-6.10)
[2023-09-29 06:31] LABS: Albumin Level 3.1 gm/dl (3.4-5.0); BUN Creatinine Ratio 39.6 (10-20); Bilirubin Direct 0.1 mg/dl (0-0.2); Bilirubin,Total 0.5 mg/dl (0.2-1.0); Calcium 8.5 mg/dl (8.6-10.3); Creatinine Clr Calc Pharmacy 35.5 ml/min; Est GFR (African American) 78.6 ml/min; Est GFR (Non-African American) 67.8 ml/min; Potassium 3.8 mmol/L (3.5-5.1); Total Protein 5.9 gm/dl (6.0-8.3)
--- NOTE | 2023-09-29 13:40 | Hospitalist Progress Note ---
Date of Service September 29, 2023 Assessment & Plan (1) Acute exacerbation of chronic obstructive pulmonary disease (COPD): (2) Bullous emphysema: (3) COVID-19: (4) Sepsis: (5) Pneumonia: Plan: On admission, Afebrile, HR 120 RR 29, WBC 17k on admission, lactate wnl - WBC improving. Vital stable. Resp viral panel + for covid, rhinovirus CT chest with bronchial wall thickening and consolidative opacities compatible with pneumonia. Emphysema is seen. Stable pulmonary nodules as above. Reactive lymph nodes are seen Improving On Levaquin, Remdesivir, Decadron, Isolation precautions. Mild leukocytosis could be from the steroids. patient is clinically stable and Improving. Given how clinically well he is doing, anticipate we can do 3-day course of remdesivir rather than 5-day course. Mucinex BID, cont home inhalers, Duoneb QIDR, tessalon perles, flutter valve Patient has on room air during my encounter. (6) HTN (hypertension): Plan: Continue losartan with hold parameters. Resume hydrochlorothiazide. (7) Hyperlipidemia: Plan: Chronic, stable. Continue statin (8) Tobacco use: Plan: Recently quit. Continue nicotine patch, gum PRN (9) Pulmonary cachexia due to chronic obstructive pulmonary disease: Plan: BMI 15.2. Continue Ensure BID DVT Ppx: SQ heparin Code status: conditional code (Yes to CPR, shock, NO to intubation or mech vent) Dispo:Anticipate discharge home tomorrow. Admission and Anticipated Discharge Date Admission Date: September 27, 2023 Subjective Patient was seen and examined at bedside. He feels good. denies any fever, chills, shortness of breath, cough, chest pain, nausea or vomiting. He is asking what time he can go home tomorrow. Review of Systems Review of Systems: All systems reviewed & are unremarkable except as noted in Subjective Physical Exam Physical Exam: General: Thin frail elderly male, lying comfortably in bed, not in distress, on room air HEENT: EOMI, [place], MMM Chest: fair breath sounds bilaterally CVS: Regular rate and rhythm, normal heart sounds, no murmur Abdomen: Soft, non tender, not distended, normal bowel sounds Neuro: Awake, alert, oriented, conversing well, non focal Extremities: No cyanosis, clubbing or edema Results & Data Results & Data Vital Signs (Past 12 Hours) Vital Signs Temp Pulse Pulse Resp BP Pulse Ox O2 Del Method 09/29/23 10:57 86 18 93 Room Air, Other 09/29/23 09:29 Room Air 09/29/23 08:12 36.4 C L 94 H 20 144/76 H 94 Room Air 09/29/23 07:30 78 09/29/23 07:30 80 18 92 Room Air 09/29/23 03:09 36.3 C L 79 18 148/76 H 92 Room Air Laboratory Results Short CBC 09/29/23 Range/Units 05:53 WBC 15.60 H (4.8-10.8) K/ul Hgb 11.5 L (14.0-18.0) g/dl Hct 34.3 L (42.0-52.0) % Plt Count 290 (130-400) K/uL BMP 09/29/23 05:53 Sodium 138 Potassium 3.8 Chloride 107 Carbon Dioxide 25 BUN 42 H Creatinine 1.06 Glucose 148 H Calcium 8.5 L Liver Function 09/29/23 Range/Units 05:53 Total Bilirubin 0.5 (0.2-1.0) mg/dl Direct Bilirubin 0.1 (0-0.2) mg/dl AST 17 (13-39) U/L ALT 16 (7-52) U/L Alkaline Phosphatase 66 (34-104) U/L Albumin 3.1 L (3.4-5.0) gm/dl (5) Pneumonia Laterality: unspecified laterality Lung location: unspecified part of lung Pneumonia type: due to unspecified organism Qualified Code(s): J18.9 - Pneumonia, unspecified organism
[2023-09-29] MEDS: levoFLOXacin/D5W 750 MG/150 ML BAG IV SCH (16:04)
[2023-09-30 07:54] LABS: Hematocrit (blood only) 36.2 % (42.0-52.0); Mean Corpuscular Hemoglobin 28.4 pg (25.0-34.0); Mean Corpuscular Hgb Conc 33.1 g/dL (32.0-36.0); Mean Corpuscular Volume 85.6 fL (80.0-100.0); Mean Platelet Volume 10.7 fL (9.4-12.4); Platelet Count 344 K/uL (130-400); RDW Coefficient of Variation 16.7 % (11.5-14.5); RDW Standard Deviation 52.1 fL (36.4-46.3); Red Blood Count 4.23 M/uL (4.70-6.10); White Blood Count 11.61 K/ul (4.8-10.8)
[2023-09-30 08:07] LABS: BUN Creatinine Ratio 40.6 (10-20); Calcium 8.6 mg/dl (8.6-10.3); Creatinine Clr Calc Pharmacy 42.7 ml/min; Est GFR (African American) 88.6 ml/min; Est GFR (Non-African American) 76.5 ml/min; Potassium 3.8 mmol/L (3.5-5.1)
--- NOTE | 2023-09-30 13:39 | Discharge Summary ---
Date of Service September 30, 2023 Admission HPI Per Admitting Provider This is a 78yo M with a PMH of COPD, respiratory bronchiolitis interstitial lung disease following with [facility] pulm, bullous emphysema, tobacco use, HTN and HLD who presents to the hospital with worsening shortness of breath x 2 days. Was admitted to our service for resp failure in setting of COPD last month. Followed up with Dr. Angela of [facility] on 08/13 who recommended continued use of mucinex, trelegy, flutter valve and smoking cessation. Patient has quit smoking and is using nicotine patches and gum. Did run out of his trilogy and waiting to get it from the pharmacy but too short of breath. Denies sick contacts. + Productive cough with some white sputum. Worsening short of breath with ambulation over past 2 days. + rhinorrhea. No F/C, lightheadedness, CP, N/V, abd pain, dysuria, diarrhea or constipation. Admission Exam Per Admitting Provider General Appearance: WD/WN, +thin, pleasant, conversing easily Head: normocephalic, atraumatic Eyes: EOMI intact R eye, + L eye blindness ENT: external ear and nose normal, oropharynx normal Neck: normal visual inspection, trachea midline, no thyromegaly Respiratory: normal respiratory effort, diminished breath sounds, + scattered expiratory wheezes, no accessory muscle use Cardiovascular: tachycardic rate, regular rhythm, normal peripheral pulses, no BLE edema Chest: normal inspection of chest Abdomen/GI: normal bowel sounds, soft, nontender, no hepatosplenomegaly Extremities/Musculoskeletal: no cyanosis or clubbing, extremities motor strength 5/5 Neurologic: PERRL, EOMI, accommodation nl, no face palsy, no dysarthria, CN's II-XI intact bilaterally and moves all extremities Psychiatric: A+Ox3, euthymic affect Skin: no rashes, normal color, warm/dry Principal Diagnosis COVID 19, PNA, COPD exacerbation Discharge Exam General: Thin frail elderly male, sitting in chair, not in distress, on room air HEENT: EOMI, [place], MMM Chest: fair breath sounds bilaterally CVS: Regular rate and rhythm, normal heart sounds, no murmur Abdomen: Soft, non tender, not distended, normal bowel sounds Neuro: Awake, alert, oriented, conversing well, non focal Extremities: No cyanosis, clubbing or edema Discharge Data Allergies Allergy/AdvReac Type Severity Reaction Status Date / Time bee venom protein (honey bee) Allergy Severe ANAPHYLAXIS Verified 09/27/23 15:35 cefuroxime Allergy Intermediate rash Verified 09/27/23 15:35 Consultations 09/27/23 15:15 ED Decision to Admit Stat Ordered Studies 09/27/23 15:37 CT chest diagnostic wo con Routine Laboratory Results WBC 11.61 K/ul (4.8-10.8) H 09/30/23 07:05 RBC 4.23 M/uL (4.70-6.10) L 09/30/23 07:05 Hgb 12.0 g/dl (14.0-18.0) L 09/30/23 07:05 Hct 36.2 % (42.0-52.0) L 09/30/23 07:05 MCV 85.6 fL (80.0-100.0) 09/30/23 07:05 MCH 28.4 pg (25.0-34.0) 09/30/23 07:05 MCHC 33.1 g/dL (32.0-36.0) 09/30/23 07:05 RDW Std Deviation 52.1 fL (36.4-46.3) H 09/30/23 07:05 RDW Coeff of Odalys 16.7 % (11.5-14.5) H 09/30/23 07:05 Plt Count 344 K/uL (130-400) 09/30/23 07:05 MPV 10.7 fL (9.4-12.4) 09/30/23 07:05 Immature Gran % (Auto) 0.7 % 09/27/23 12:58 Neut % (Auto) 88.7 % 09/27/23 12:58 Lymph % (Auto) 3.3 % 09/27/23 12:58 Fountain % (Auto) 7.0 % 09/27/23 12:58 Eos % (Auto) 0.1 % 09/27/23 12:58 Baso % (Auto) 0.2 % 09/27/23 12:58 Neut # (Auto) 15.73 K/uL (1.40-6.50) H 09/27/23 12:58 Lymph # (Auto) 0.58 K/uL (1.20-3.40) L 09/27/23 12:58 Fountain # (Auto) 1.24 K/uL (0.11-0.59) H 09/27/23 12:58 Eos # (Auto) 0.01 K/uL (0.00-0.50) 09/27/23 12:58 Baso # (Auto) 0.04 K/uL (0.00-0.20) 09/27/23 12:58 Immature Gran # (Auto) 0.12 K/uL (0.01-0.20) 09/27/23 12:58 PT 12.4 Seconds (9.0-12.0) H 09/27/23 12:58 INR 1.2 (0.9-1.1) H 09/27/23 12:58 APTT 35 Seconds (21-31) H 09/27/23 12:58 PTT Ratio 1.3 09/27/23 12:58 Sodium 142 mmol/L (136-145) 09/30/23 07:05 Potassium 3.8 mmol/L (3.5-5.1) 09/30/23 07:05 Chloride 110 mmol/L (98-107) H 09/30/23 07:05 Carbon Dioxide 27 mmol/L (21-32) 09/30/23 07:05 Anion Gap 5 (3-11) 09/30/23 07:05 BUN 39 mg/dl (6-23) H 09/30/23 07:05 Creatinine 0.96 mg/dl (0.6-1.4) 09/30/23 07:05 Est Cr Clr Drug Dosing 42.7 ml/min 09/30/23 07:05 Est GFR ( Amer) 88.6 ml/min 09/30/23 07:05 Est GFR (Non-Af Amer) 76.5 ml/min 09/30/23 07:05 BUN/Creatinine Ratio 40.6 (10-20) H 09/30/23 07:05 Glucose 128 mg/dl (70-99(Fasting)) H 09/30/23 07:05 Lactate 1.4 mmol/L (0.4-2.0) 09/27/23 14:36 Calcium 8.6 mg/dl (8.6-10.3) 09/30/23 07:05 Total Bilirubin 0.5 mg/dl (0.2-1.0) 09/29/23 05:53 Direct Bilirubin 0.1 mg/dl (0-0.2) 09/29/23 05:53 AST 17 U/L (13-39) 09/29/23 05:53 ALT 16 U/L (7-52) 09/29/23 05:53 Alkaline Phosphatase 66 U/L (34-104) 09/29/23 05:53 Troponin I High Sens 15.0 pg/ml (0-20) D 09/27/23 15:30 Total Protein 5.9 gm/dl (6.0-8.3) L 09/29/23 05:53 Albumin 3.1 gm/dl (3.4-5.0) L 09/29/23 05:53 Globulin 3.4 gm/dl (2.5-4.0) 09/27/23 12:58 Albumin/Globulin Ratio 1.2 (0.9-2) 09/27/23 12:58 Nasal Screen MRSA (PCR) Negative (Negative) 09/27/23 18:29 Adenovirus (PCR) Not Detected (NotDetected) 09/27/23 14:10 B. pertussis DNA (PCR) Not Detected (NotDetected) 09/27/23 14:10 B.parapertussis DNA PCR Not Detected (NotDetected) 09/27/23 14:10 C. pneumoniae DNA (PCR) Not Detected (NotDetected) 09/27/23 14:10 Coronavirus OC43 (PCR) Not Detected (NotDetected) 09/27/23 14:10 Coronavirus HKU1 (PCR) Not Detected (NotDetected) 09/27/23 14:10 Coronavirus 229E (PCR) Not Detected (NotDetected) 09/27/23 14:10 SARS-CoV-2 (PCR) DETECTED (NotDetected) A 09/27/23 14:10 Coronavirus NL63 (PCR) Not Detected (NotDetected) 09/27/23 14:10 Human Metapneumovir PCR Not Detected (NotDetected) 09/27/23 14:10 Influenza Type A (PCR) Not Detected (NotDetected) 09/27/23 14:10 Influenza Type B (PCR) Not Detected (NotDetected) 09/27/23 14:10 M. pneumoniae (PCR) Not Detected (NotDetected) 09/27/23 14:10 Parainfluenza 1 (PCR) Not Detected (NotDetected) 09/27/23 14:10 Parainfluenza 2 (PCR) Not Detected (NotDetected) 09/27/23 14:10 Parainfluenza 3 (PCR) Not Detected (NotDetected) 09/27/23 14:10 Parainfluenza 4 (PCR) Not Detected (NotDetected) 09/27/23 14:10 RSV (PCR) Not Detected (NotDetected) 09/27/23 14:10 Entero/Rhino (PCR) DETECTED (NotDetected) A 09/27/23 14:10 Impressions Chest X-Ray 09/27/23 12:04 XR chest 1V portable CLINICAL HISTORY: Chest pain, nonspecific COMPARISON STUDY: Chest radiograph and chest CT August 01, 2023. FINDINGS: There is severe emphysema. No pneumothorax or pleural effusion is present. Left basilar airspace opacity is noted. Bilateral lower lung interstitial thickening is similar to prior exam. There may be minimal right basilar opacity. Cardiomediastinal silhouette is normal. IMPRESSION: 1. Left basilar opacity suspicious for pneumonia. Radiographic follow-up to ensure resolution is recommended. 2. Persistent lower lung interstitial thickening which may also be infectious in etiology. 3. Severe emphysema. ACT 112: Negative or not required by law. Electronically signed by: Christopher Florez M.D. 09/27/2023 3:[address] 09/27/23 15:37 CT chest diagnostic wo con CLINICAL HISTORY: COPD, PNA TECHNIQUE: Multidetector row helical CT of the chest was performed. Coronal and sagittal reformations were obtained. Automated dose lowering techniques and/or adjustment according to patient size were utilized for this exam. CT DOSE: 245.34 mGy.cm Comparison: Comparison is made to CT chest 08/01/2023 FINDINGS: Lungs and pleura: Diffuse emphysema is seen most prominent in the upper lobes. Bronchial wall thickening, mucus plugging, and consolidative opacities are seen most prominent in the lower lobes. 5 mm nodules are in the right upper lobe (series 4 images 67 and 98). Heart and pericardium: Heart size is normal. No pericardial effusion. Vessels: Moderate atherosclerotic changes in the aorta and coronary arteries. Mediastinum and deion: Subcentimeter lymph nodes are seen. Chest wall and lower neck: Unremarkable. Abdomen: Patient is status post cholecystectomy. Renal cysts are seen. Bones: Degenerative changes in the thoracic spine. IMPRESSION: Bronchial wall thickening and consolidative opacities compatible with pneumonia. Emphysema is seen. Stable pulmonary nodules as above. Reactive lymph nodes are seen. ACT 112: Negative or not required by law. Electronically signed by: Howard Flaherty M.D. 09/27/2023 4:41 PM Hospital Course (1) Acute exacerbation of chronic obstructive pulmonary disease (COPD): (2) Bullous emphysema: (3) COVID-19: (4) Sepsis: (5) Pneumonia: On admission, Afebrile, HR 120 RR 29, WBC 17k on admission, lactate wnl - WBC improving. Vital stable. Resp viral panel + for covid, rhinovirus CT chest with bronchial wall thickening and consolidative opacities compatible with pneumonia. Emphysema is seen. Stable pulmonary nodules as above. Reactive lymph nodes are seen Improving On Levaquin, Remdesivir, Decadron, Isolation precautions. Mild leukocytosis could be from the steroids. patient is clinically stable and Improving. Given how clinically well he is doing, 3-day course of remdesivir was completed. Continue levaquin renally dosed, decadron, mucinex, inhalers at discharge. Patient has been on room air and without any respiratory issues throughout my care. He was cleared by physical therapy. He is anxious to go home. (6) HTN (hypertension): Continue losartan and hydrochlorothiazide. (7) Hyperlipidemia: Chronic, stable. Continue statin (8) Tobacco use: Recently quit. Continue nicotine patch, gum PRN (9) Pulmonary cachexia due to chronic obstructive pulmonary disease: BMI 15.2. Continue Ensure BID Total Time Total Time Spent Total Time Spent (In Minutes): 32 Discharge Plan Discharge Items Patient Disposition: Home - Self-Care Reason For Visit: COPD, PNA Discharge Diagnosis: COVID 19, PNA, COPD exacerbation Activity: Resume your previous activity Non-emergency contact: Primary Care Provider Call non-emergency contact if: you have any medication questions, your symptoms worsen and you have a fever Follow-up/Referrals: Chavez Francois MD [Primary Care Provider] - (Date & Time 10/07/2023 11:00 AM Provider Chavez Francois MD Department General Internal Medicine [facility] ) Diet: Regular Addtl Attending Provider Instructions: Continue levaquin every other day starting tomorrow morning for 2 more dose Continue decadron every day starting tomorrow morning for 3 more days Follow up with your family doctor/lung doctors Recommend home isolation for a week given your COVID 19. Pending Studies at Discharge: No Stand-Alone Forms: My [facility], Smoking Cessation Medications and DC Order Prescriptions: New levofloxacin 750 mg Tablet 750 mg PO Q48H Qty: 2 0RF Rx Instructions: start tomorrow morning dexamethasone 6 mg tablet 6 mg PO DAILY 3 Days Qty: 3 0RF Rx Instructions: start tomorrow morning Continued atorvastatin [Lipitor] 40 mg Tablet 40 mg PO QAM albuterol sulfate 90 mcg/actuation Hfa Aerosol Inhaler 2 puff INHALATION QID PRN (Reason: Wheezing) fluticasone propionate 50 mcg/actuation [place],Suspension 2 spray INTRANASAL QAM Rx Instructions: administer into each nostril epinephrine 0.1 mg/0.1 mL Auto-Injector 1 mg subcut UD PRN (Reason: Allergic Reaction) losartan 50 mg Tablet 50 mg PO QAM hydrochlorothiazide 25 mg Tablet 25 mg PO QAM acetaminophen 500 mg Tablet 1,000 mg PO Q6H PRN (Reason: Pain) nicotine 14 mg/24 hr Patch 24 Hour 1 patch TRANSDERMAL DAILY Rx Instructions: TO START 09/19/23 FOR 2 WKS, THEN REDUCE TO 7 MG X 2 WKS, THEN STOP. ipratropium-albuterol 0.5 mg-3 mg(2.5 mg base)/3 mL solution for nebulization 3 ml INHALATION QID PRN (Reason: Shortness Of Breath Or Wheezing) nicotine (polacrilex) 2 mg Gum 2 mg BUCCAL QID PRN (Reason: SMOKING URGE) benzonatate 100 mg Capsule 100 mg PO TID PRN (Reason: Cough) nicotine 7 mg/24 hr Patch 24 Hour 1 patch TRANSDERMAL DAILY Rx Instructions: ONE PATCH FOR 2 WEEKS, REMOVE OLD PATCH DAILY, THEN STOP USE. guaifenesin [Mucus Relief ER] 600 mg Tablet Extended Release 12hr 1,200 mg PO Q12H PRN (Reason: Congestion) Trelegy Ellipta 100-62.5-25 mcg blister with device 1 inh INHALATION QAM Rx Instructions: PER PT "NEED TO RETAIL AND RESTAURANT FROM PHARMACY, RAN OUT". Discharge Orders: Discharge Order (Routine); Ordered 09/30/23 Ordered By: Migue Boogie Admission Data Admit Date/Time: 09/27/23 15:35 Attending Provider: Migue Boogie Admit Provider: Mulugeta Bhagat Primary Care Provider: Chavez Francois Other Providers: Mulugeta Bhagat Other Interventions: Discharge Summary Assessment (RN) Last Done: 09/30/23 13:32
[2023-10-01] MEDS ORDERED: levoFLOXacin 750 MG TAB PO SCH (09:00)
== END 2023-09-30 13:54 | disposition home or self-care (01) | DRG 871 ==
LOC: ED 11:55 → SUATTDRO 15:35 → EDINP 15:35 → 2N 19:49